=== PATIENT | female | born 1950 | race Caucasian/White ===

== ENCOUNTER 2019-06-13 06:38 | Emergency (ER) | payer MEDICARE, SELFPAY ==
[2019-06-13 06:49] VITALS: BP 220/113; PULSE 74; RESP 20; TEMP 36.6; O2SAT 96; BMI 23.2
--- NOTE | 2019-06-13 06:56 | ED_ITS ---
HPI - General Adult General: Chief complaint: General Medical Stated complaint: HTN Time Seen by Provider: 06/13/19 06:44 History of Present Illness: HPI narrative: 68-year-old female comes in complaining of elevated blood pressures. She states she was on blood pressure medicines for about 20 years but changed her diet and seem to get better so she stopped all of her medicines. She has not been taking any stimulants or hiln-jfu-ixcbidb medications recently. No nasal sprays. Associated symptoms: Deny chest pain, dyspnea, malaise, nausea, rash or vomiting Review of Systems Const: Denies: fever, chills, body aches, change in appetite, fatigue or malaise ENMT: Denies: throat pain, ear pain, nasal discharge or nasal congestion Card: Denies: chest pain, edema, shortness of breath on exertion or shortness of breath when lying down Resp: Denies: shortness of breath, productive cough or non-productive cough GI: Denies: abdominal pain, nausea, vomiting, vomiting blood, coffee grounds in vomit, diarrhea, constipation, bloating, blood in stool or black tarry stool : Denies: flank pain, difficulty urinating, painful urination, urinary frequency or urinary urgency Skin/Breast: Denies: rash or itching PFSH ED PFSH: Statuses (acute, chronic, etc) shown below reflect problem list status as previously entered and may not be historically accurate Social History Smoking and tobacco status: current every day smoker Physical Exam Const: COMMON NORMALS: no apparent distress GENERAL APPEARANCE: cooperative and comfortable ORIENTATION/CONSCIOUSNESS: Yes awake, Yes oriented to person, Yes oriented to place and Yes oriented to time HENMT: COMMON NORMALS: normocephalic, head/scalp atraumatic, hearing grossly normal bilaterally, external ears normal, EAC's normal, TM's normal bilaterally, nasal mucous membranes and turbinates normal, moist oral mucous membranes and oropharynx normal HEAD & SCALP: normocephalic and atraumatic NOSE: nasal mucous membranes and turbinates normal EXTERNAL EAR: Yes external ears normal EXTERNAL AUDITORY CANAL: EAC's normal TYMPANIC MEMBRANE: TM's normal bilaterally Eye: COMMON NORMALS: PERRL, EOMs intact bilaterally, conjunctivae normal and no scleral icterus CONJUNCTIVA: Yes conjunctivae normal PUPIL: Yes PERRL Neck/C-Spine: COMMON NORMALS: full ROM, no lymphadenopathy, supple and no JVD Lymph: LYMPHATIC: no lymphadenopathy noted and no lymphedema noted Resp: COMMON NORMALS: normal respiratory effort, no retractions, no use of accessory muscles and clear to auscultation bilaterally AUSCULTATION: clear to auscultation bilaterally Cardio: COMMON NORMALS: no JVD, regular rate, regular rhythm and no murmurs RATE: regular rate RHYTHM: regular rhythm GI: COMMON NORMALS: soft to palpation and no hepatosplenomegaly AUSCULTATION: Yes normoactive bowel sounds PALPATION: Yes soft, No tender, No guarding and Yes no hepatosplenomegaly Extremity: COMMON NORMALS: normal to inspection, normal capillary refill, no clubbing, cyanosis or edema, no calf tenderness and no pedal edema Neuro: SENSORIUM/ORIENTATION: Yes oriented to person, Yes oriented to place and Yes oriented to time Skin: COMMON NORMALS: no rashes or lesions noted GENERAL SKIN EXAM: no rashes or lesions noted Course ED course: Patient's blood pressure did improve while she was here getting go ahead and start her on amlodipine 2.5 mg and lisinopril 5 mg daily have her follow-up with her primary care provider in the next 5 to 7 days. Encouraged her to keep a blood pressure log daily. We had ordered some hydralazine but she was down to 159/84 before being given that. She did have blood pressure initially of 220/113 so I still think the 2 medication regimen is a good start for her but will need adjusting. Vital Signs: Vital signs: Vital Signs Temperature 98 F 06/13/19 06:49 Pulse Rate 79 06/13/19 08:22 Respiratory Rate 18 06/13/19 08:22 Blood Pressure 159/84 06/13/19 08:22 Pulse Oximetry 97 06/13/19 08:22 [facility] - General Adult Lab Data: Labs: Lab Results 06/13/19 06/13/19 06/13/19 Range/Units 07:18 07:18 07:18 WBC 4.5 (4.0-10.0) 10^3/ uL RBC 5.50 H (4.1-5.3) 10^6/u L Hgb 15.4 H (11.5-15.3) g/dL Hct 46.5 (37.0-47.0) % MCV 84.5 (81-99) fL MCH 28.0 (28.0-34.0) pg MCHC 33.1 (30.0-36.0) g/dL RDW 12.4 (12.1-15.1) % Plt Count 162 (130-400) 10^3/c mm MPV 12.1 H (7.4-10.4) fL Neut % (Auto) 57.6 % Lymph % (Auto) 29.3 % [place] % (Auto) 8.2 % Eos % (Auto) 3.6 % Baso % (Auto) 1.1 % Neut # (Auto) 2.6 (1.8-7.7) 10^3/u L Lymph # (Auto) 1.3 (0.8-4.8) 10^3/u L [place] # (Auto) 0.4 (0.2-0.9) 10^3/u L Eos # (Auto) 0.2 (0.0-0.8) 10^3/u L Baso # (Auto) 0.1 (0.0-0.1) 10^3/u L Nucleated RBC % (a uto) 0 % Nucleated RBCs # 0.0 /100WBC Sodium 138 (136-145) mmol/L Potassium 4.3 (3.5-5.1) mmol/L Chloride 104 (98-107) mmol/L Carbon Dioxide 20 L (22-29) mmol/L Anion Gap 18.3 (5-19) BUN 18 (8-23) mg/dL Creatinine 1.0 H (0.5-0.9) mg/dL GFR Calculation 55.3 L (90-130) mL/min Glucose 105 (74-106) mg/dL Calcium 9.7 (8.5-10.5) mg/dL Total Bilirubin 0.6 (0.15-1.2) mg/dL AST 15 (0-32) U/L ALT 11 (0-33) U/L Alkaline Phosphata se 57 (35-105) IU/L Troponin T Baselin e 15 H (0-10) ng/mL Total Protein 7.4 (6.6-8.7) g/dL Albumin 3.9 (3.5-5.2) g/dL Globulin 3.5 (1.3-4.6) g/dL Discharge Plan Discharge Patient Disposition: Home, Self-Care Condition: Stable Prescriptions: New lisinopril 5 mg tablet 5 mg PO DAILY Qty: 30 RF: 0 amlodipine 2.5 mg tablet 2.5 mg PO DAILY Qty: 30 RF: 0 Discharge Orders: Discharge Order (Routine); Ordered 06/13/19 Ordered By: Donovan Lugo Referrals: Efrain Nelson MD [Primary Care Provider] - Fredo Reid MD [Family Provider] - Discharge Diet: Usual diet Discharge Activity: Increase activity as tolerated Activity Restrictions/Additional Instructions: Follow-up with your primary care provider within the next 5 to 7 days for recheck of your blood pressure. Discharge Date/Time: 06/13/19 08:24 Coding Level of Care Code ED Director [employer] for Alicia Fwd Exam Problem Focused
--- NOTE | 2019-06-13 07:05 | XR_ITS ---
WS: [id number] PORTABLE CHEST HISTORY: HTN COMPARISON: 11/01/2018 Mild hyperinflation with scattered granulomata. Similar to the prior study. Slight elevation of the L EFT hemidiaphragm with LEFT pleural thickening at the costophrenic angle. No pneumonia. Normal vascul ature. No pleural effusion or pneumothorax. Cardiac size: Normal. Mediastinum/Aorta: Mild atherosclerosis aorta. No osseous abnormality seen. XR/XR chest 1V portable [id number] IMPRESSION: Chronic emphysema. No acute cardiopulmonary disease.
[2019-06-13 07:27] LABS: Basophils # 0.1 10^3/uL (0.0-0.1); Basophils % 1.1 %; Eosinophils # 0.2 10^3/uL (0.0-0.8); Eosinophils % 3.6 %; Hematocrit 46.5 % (37.0-47.0); Hemoglobin 15.4 g/dL (11.5-15.3); Lymphocytes # 1.3 10^3/uL (0.8-4.8); Lymphocytes % 29.3 %; Mean Corpuscular HGB Conc 33.1 g/dL (30.0-36.0); Mean Corpuscular Volume 84.5 fL (81-99); Mean Platelet Volume 12.1 fL (7.4-10.4); Monocytes # 0.4 10^3/uL (0.2-0.9); Monocytes % 8.2 %; Neutrophils # 2.6 10^3/uL (1.8-7.7); Neutrophils % 57.6 %; Nucleated Red Blood Cells % 0 %; Platelet Count 162 10^3/cmm (130-400); Red Cell Distribution Width 12.4 % (12.1-15.1); White Blood Count 4.5 10^3/uL (4.0-10.0)
[2019-06-13 07:47] LABS: Alanine Aminotransferase 11 U/L (0-33); Albumin Level 3.9 g/dL (3.5-5.2); Alkaline Phosphatase 57 IU/L (35-105); Anion Gap 18.3 (5-19); Aspartate Amino Transferase 15 U/L (0-32); Blood Urea Nitrogen 18 mg/dL (8-23); Calcium 9.7 mg/dL (8.5-10.5); Carbon Dioxide 20 mmol/L (22-29); Chloride 104 mmol/L (98-107); Globulin 3.5 g/dL (1.3-4.6); Glomerular Filtration Rate 55.3 mL/min (90-130); Glucose 105 mg/dL (74-106); Potassium 4.3 mmol/L (3.5-5.1); Sodium 138 mmol/L (136-145); Total Bilirubin 0.6 mg/dL (0.15-1.2); Total Protein 7.4 g/dL (6.6-8.7)
[2019-06-13 07:51] LABS: Troponin(5th) Baseline 15 ng/mL (0-10)
--- NOTE | 2019-06-13 07:55 | PC.NURSE ---
patient resting comfortably , no needs
[2019-06-13 08:22] VITALS: BP 159/84; PULSE 79; RESP 18; O2SAT 97
[2019-06-13] MEDS: amlodipine 5 mg Tablet PO (08:22)
--- NOTE | 2019-06-13 09:06 | ECG_ITS ---
Measurements Intervals [place] Rate: 52 P: 31 VA: 173 QRS: -30 QRSD: 101 T: -85 QT: 449 QTc: 420 SINUS BRADYCARDIA INCOMPLETE RIGHT BUNDLE BRANCH BLOCK [90+ ms QRS DURATION, TERMINAL R IN V1/V2, 40+ ms S IN I/aVL/V4/V5/V6] SEPTAL MYOCARDIAL INFARCTION , PROBABLY OLD [40+ ms Q WAVE IN V1/V2] MODERATE T-WAVE ABNORMALITY, CONSIDER ANTEROLATERAL ISCHEMIA [-0.1+ mV T WAVE IN V3-V6] MODERATE T-WAVE ABNORMALITY, CONSIDER INFERIOR ISCHEMIA [-0.1+ mV T WAVE IN II/aVF] Compared to ECG 07/10/2015 10:53:50 Myocardial infarct finding now present Left-axis deviation no longer present T-wave abnormality still present Possible ischemia still present Electronically Signed On 06-13-2019 18:37:04 LAUNDRY HOUSEKEEPER by Michael Lagunas M.D. [id number]
== END 2019-06-13 08:24 | disposition home or self-care (01) ==
PROVIDERS: Emergency Provider Family Medicine; Family Provider Internal Medicine Nephrology; PCP Family Medicine
DX: I10 Essential (primary) hypertension (principal); F17.210 Nicotine dependence, cigarettes, uncomplicated
CPT/HCPCS: 36415; 71045; 80053; 84484; 85025; 93005; 99282; 99284

== ENCOUNTER 2019-06-27 09:39 | Inpatient (IN) | payer MEDICARE, SELFPAY ==
[2019-06-27] VITALS (44 sets, daily range): BP systolic 85–138; BP diastolic 57–87; PULSE 42–73; RESP 12–30; O2SAT 91–983
--- NOTE | 2019-06-27 09:41 | ED_ITS ---
Entered by Bernard Horne, acting as scribe for HPI - Chest Pain General: Chief Complaint: Chest Pain Stated Complaint: chest pain Time Seen by Provider: 06/27/19 09:58 History of Present Illness: HPI narrative: 68 yo female presents with stemi. Pt went into her PCP office for a check up, pt was having chest pain. Pt received nitro by EMS. Pt states that she feels like she is going to pass out. MD complaint: chest pain Onset (ago): minute(s) Timing of current episode: constant Severity: moderate Review of Systems General: Reports: ROS unobtainable due to mental status PFSH ED PFSH: Statuses (acute, chronic, etc) shown below reflect problem list status as previously entered and may not be historically accurate Social History Smoking and tobacco status: current every day smoker Physical Exam Const: COMMON NORMALS: oriented x3 and alert GENERAL APPEARANCE: well kempt ORIENTATION/CONSCIOUSNESS: Yes awake, Yes oriented to person, Yes oriented to place and Yes oriented to time Resp: COMMON NORMALS: normal respiratory effort, no retractions, no use of accessory muscles and clear to auscultation bilaterally AUSCULTATION: clear to auscultation bilaterally Cardio: COMMON NORMALS: regular rate and regular rhythm RATE: regular rate RHYTHM: regular rhythm HEART SOUNDS: no murmurs Neuro: COMMON NORMALS: oriented x3 SENSORIUM/ORIENTATION: Yes alert, Yes oriented to person, Yes oriented to place and Yes oriented to time Psych: APPEARANCE: Yes well kempt Course ED course: Patient presented with acute ST elevation [place]. EKG from doctor's office showed some ST depression in the lateral leads that are progressed to a full-blown STEMI by the time she arrived. Initially upon arrival she had received sublingual nitro and was unstable she was bradycardic EMS administered 1/2 mg of atropine as they arrived. This did improve her heart rate. Blood pressure was borderline as well. Dr. Busby was contacted STEMI pathway protocols initiated immediately patient taken from the ER to the [facility] with the care of Dr. Busby. Vital Signs: Vital signs: Vital Signs Temperature 98 F 06/28/19 10:33 Pulse Rate 56 L 06/28/19 10:33 Respiratory Rate 20 H 06/28/19 10:33 Blood Pressure 128/85 06/28/19 11:05 Pulse Oximetry 97 06/28/19 10:33 MDM - Chest Pain Lab Data: Labs: Lab Results 06/27/19 06/27/19 06/27/19 Range/Units 09:45 09:45 09:45 WBC 7.0 (4.0-10.0) 10^3/ uL RBC 5.33 H (4.1-5.3) 10^6/u L Hgb 15.4 H (11.5-15.3) g/dL Hct 46.9 (37.0-47.0) % MCV 88.0 (81-99) fL MCH 28.9 (28.0-34.0) pg MCHC 32.8 (30.0-36.0) g/dL RDW 12.7 (12.1-15.1) % Plt Count 197 (130-400) 10^3/c mm MPV 12.2 H (7.4-10.4) fL Neut % (Auto) 47.8 % Lymph % (Auto) 40.4 % [place] % (Auto) 8.2 % Eos % (Auto) 2.6 % Baso % (Auto) 0.9 % Neut # (Auto) 3.3 (1.8-7.7) 10^3/u L Lymph # (Auto) 2.8 (0.8-4.8) 10^3/u L [place] # (Auto) 0.6 (0.2-0.9) 10^3/u L Eos # (Auto) 0.2 (0.0-0.8) 10^3/u L Baso # (Auto) 0.1 (0.0-0.1) 10^3/u L Nucleated RBC % (a uto) 0 % Nucleated RBCs # 0.0 /100WBC Sodium 137 (136-145) mmol/L Potassium 4.0 (3.5-5.1) mmol/L Chloride 103 (98-107) mmol/L Carbon Dioxide 21 L (22-29) mmol/L Anion Gap 17.0 (5-19) BUN 21 (8-23) mg/dL Creatinine 1.0 H (0.5-0.9) mg/dL GFR Calculation 55.3 L (90-130) mL/min Glucose 141 H (65-115) mg/dL Calcium 9.6 (8.5-10.5) mg/dL Total Bilirubin 0.6 (0.15-1.2) mg/dL AST 13 (0-32) U/L ALT 9 (0-33) U/L Alkaline Phosphata se 50 (35-105) IU/L Troponin T Baselin e 19 H (0-10) ng/mL Total Protein 7.1 (6.6-8.7) g/dL Albumin 4.4 (3.5-5.2) g/dL Globulin 2.7 (1.3-4.6) g/dL Discharge Plan Discharge Patient Disposition: Admitted As Inpatient Admit Provider: Michael Lagunas Clinical Impression: ST elevation TN (STEMI) Condition: Stable Discharge Orders: Discharge Order (Routine); Ordered 06/28/19 Ordered By: Michael Lagunas Referrals: Michael Lagunas MD [Physician] - 2 months (follow up appointment has been scheduled at [facility] [phone] with for date of Tuesday September 17, 2019 at 1:00 pm ) Antwon Phillips FNP [Nurse Practitioner] - 4-7 days (antwon phillips for follow up in 7 days at [facility] [phone] for wound check ,and lab test , scheduled appointment for time of Thursday July 04, 2019 at 10:30 am ) Discharge Diet: Cardiac Discharge Activity: Increase activity as tolerated Patient Instructions: Metoprolol (By mouth), Lisinopril (By mouth), Aspirin (By mouth), Atorvastatin (By mouth), Pantoprazole (By mouth), Heart Healthy Diet, Myocardial Infarction (DC), Coronary Intravascular Stent Placement (DC), Post Angiogram Home Care Instructions Additional Instructions: You will be scheduled to see Antwon Phillips cardiology nurse practitioner in 7 days. Please schedule to see Dr. Lagunas in 8 weeks. If you have any questions please call Dr. Lagunas's office. Please keep a log of blood pressure and pulse for next 7 days and bring it with you when you come to see Antwon Phillips Discharge Date/Time: 06/27/19 10:05 Coding Level of Care Code ED Platform Beater for Chg Fwd Exam Problem Focused The documentation recorded by the scribeOzzie Kialy, accurately reflects the service I personally performed and the decisions made by , Donovan Lugo, Jun 27, 2019 09:39
[2019-06-27] MEDS: heparin 5,000 unit/mL INJ 1 mL 4000 UNIT IV (09:51)
[2019-06-27] MEDS: clopidogrel 300 mg Tablet 600 MG PO (09:51)
[2019-06-27] MEDS: aspirin 81 mg Chew Tablet 162 MG PO (09:51)
[2019-06-27] MEDS: sodium chloride 0.9% 1,000 ML 999 ML IV (09:51)
--- NOTE | 2019-06-27 09:54 | XACV_ITS ---
Ht: 173 cm Wt: 72 kg BSA: 1.86 m2 Gender: Female : 1950 Exam Priority: Routine Procedure(s): Procedure Description: Diagnostic procedure Procedure Description: PCI procedure Procedure Description: Drug Eluting Coronary Stent Procedure Description: PTCA Procedure Description: Coronary Angiography Diagnostic Cath Status: Urgent Diagnostic Findings LM has 0% stenosis. LAD has 0% stenosis. Proximal Circumflex Coronary Artery: Severe 100% stenosis, JC: 0 flow. mRCA: Mild 20% stenosis, JC: 3 flow. Coronary angiography shows right dominance. PCI Status: Urgent PCI Indication: STEMI - Immediate PCI for STEMI Interventional Findings Proximal Circumflex Coronary Artery: 100% stenosis treated with AB TREK 2.50X15 RX BALLOON, TRACIE Akers SYLVIA 3.5X18 SHAN, and MDT CHRISTOPHER EUPHORA RX 4.30Q39BY BALLOON. 0% residual stenosis, JC: 3 flow. Severe spasm of the proximal circumflex was observed after placing the stent. IC nitroglycerin was given after which spasm normalized. After careful inspection of the vessel no dissection was each denies. JC-3 flow and excellent angiographic result was confirmed. Conclusions There is severe coronary artery disease with two vessel disease. Proximal Circumflex Coronary Artery was treated with two Balloon and Drug Eluting Stent. Recommendations Continue current medical management and risk factor modification. Diagnostic RX Recommendation: PCI w/o planned CABG Pressures Phase:Rest AO : 139 mmHg / 92 mmHg ( 113 mmHg ) @ 4:11:00 AM Clinical Evaluation EBL: 5mL-10mL Procedural Details Current Diagnosis : STEMI. Pre-Procedure Time Out. Identified patient by full name and date of as verbalized by the patient/guarantor. Does the consent match the physician's order: N/A Emergent; Informed Consent not obtained due to time critical life threat. Accurate & Complete Informed Consent: N/A Emergent; Informed Consent not obtained due to time critical life threat. Inpatient/Outpatient History & Physical on Chart: N/A Emergent; Informed Consent not obtained due to time critical life threat. If H&P is completed, is and addenduem needed: N/A Emergent; Informed Consent not obtained due to time critical life threat; If yes, is the addendum complete: N/A Emergent; Informed Consent not obtained due to time critical life threat. Visualize and Verify Site with Patient/Guarantor: N/A. Relevant Radiology Images available: N/A Emergent; Informed Consent not obtained due to time critical life threat. Pre-op teaching completed and patient verbalized understanding. The risks, benefits, and alternatives of sedation and/or procedure were discussed by physician. The patient agrees to continue. Procedure started. Correct patient, site and procedure confirmed by cath team. Current diagnosis: STEMI. PERRLA. Strong, equal hand emulsification operator bilaterally. Lungs clear x 5 lobes. IV Site on Arrival: 16 gauge in the right anticubital. IV Site on Arrival: 20 gauge in the left anticubital. IV Fluids: 0.9% NaCl at KVO. 0 mL infused prior to laborer tanbark. Fluid bolus started in ED and running at this time. Pre Procedural Pulses: bilateral dorsalis pedis was 2+. Pre Procedural Pulses: bilateral posterior tibial was 2+. Pre Procedural Pulses: bilateral radial was 2+. Oxygen started at 2liters/min via nasal canula. bilateral groins was prepped with chloroprep then draped in the usual sterile fashion. right radial was prepped with chloroprep then draped in the usual sterile fashion. Baseline sample Acquired. HR: 65 BPM. Physician notified. Physician arrived. Equipment: 6F - Radial. ACIST Manifold Kit Model BT 2000. Cardiac Cath Pack. Heparinized Saline (2 units/mL), 1000 mL bag. Physician scrubbed in. Immediate Pre-Procedure Time Out. Correct Patient: Yes; Correct Procedure: Yes; Correct Site: Yes; Correct Patient Position: Yes; Correct Supplies: Yes; Dried Flammable Prep: Yes; Blood Products Available: No;. Lidocaine 1% infiltrated to the right radial. Arterial access obtained. 6 slovak JR 4 guide catheter was inserted over the wire. 600mg plavix, 4000 units of heparin, and 324mg Aspirin, 0.4mg SL Nitro, 0.5mg Atropine given in the ED prior to arrival in laborer tanbark. Guide catheter out. 6 slovak XB 3 guide catheter was inserted over the wire. AP pads on patient. [place] guidewire was advanced through the guide catheter to lesion in the prox Circ. Family updated by Rosa Garibay. Inflation number : 1 A AB TREK 2.50X15 RX BALLOON was prepped and advanced across the Prox CX , then inflated to 10 AYDEN for 0:06 seconds. Inflation number: 2 The AB TREK 2.50X15 RX BALLOON was reinflated across the Prox CX, to 8 AYDEN for 0:06 seconds. Balloon out. Results checked. Inflation Number : 3 A TRACIE Akers SYLVIA 3.5X18 SHAN -Lot Number#[id number] was prepped and advanced across the Prox CX. The stent was deployed at 12 AYDEN for 0:21 seconds. Stent expiration date: 03/15/2021. Stent balloon out over wire. Inflation number : 4 A MDVonda WHITE EUPHORA RX [id number] BALLOON was prepped and advanced across the Prox CX , then inflated to 8 AYDEN for 0:10 seconds. Wire out. ACT drawn. Results 193 seconds. Therapeutic limits - pre-heparin administration 90-150 seconds and monitoring heparin during a vascular procedure >250 seconds. TR band placed. Hemostasis obtained. Post Procedure: Pulses reassessed and unchanged. PERRLA. Strong, equal hand emulsification operator bilaterally. No VTE prophylaxis required. Medication's Wasted: Lidocaine 1% = 18 mL. Medication's Wasted: Nitro = 49.8 mg. Medication's Wasted: Other = Versed 1 mg. Medication's Wasted: Other = Fentanyl 75mcg. Total IV fluids: 900 mL. Contrast type used: Visipaque 320 mgI/mL, 500 mL bottle. PCI Indication: STEMI. Post-op diagnosis: STEMI. Complications: None. Estimated blood loss: 5mL-10mL. Vital chart was stopped. Procedure completed. Patient transferred by wheelchair to 1st floor. Site: Right Radial artery Sheath Size: 6 Fr Hemostasis Success: Unsuccessful Procedure Medications Start: 10:02 AM Stop: 10:02 AM Medication: Versed 1 mg and Fentanyl 25 mcg Amount: 1 Route: I.V. Start: 10:03 AM Stop: 10:03 AM Medication: Heparin Amount: 4000 units Route: I.V. Start: 10:18 AM Stop: 10:18 AM Medication: Aggrastat 12.5 mg/250 mL Amount: 36 ml Route: I.V. bolus Start: 10:19 AM Stop: 10:19 AM Medication: Aggrastat 12.5 mg/250 mL Amount: 13 ml/hr Route: I.V. drip Start: 10:29 AM Stop: 10:29 AM Medication: Nitrogylcerin Amount: 200 mcg Route: I.C. I, the attending physician, have reviewed and verified all procedure medications. Yes, all medications given per verbal order Report Signatures Finalized by:iMchael Lagunas MD on 07/11/2019 7:18:19 PM
--- NOTE | 2019-06-27 09:58 | ECG_ITS ---
Measurements Intervals [place] Rate: 66 P: ME: 0 QRS: -9 QRSD: 96 T: 40 QT: 414 QTc: [address] ELEVATION, CONSIDER LATERAL INJURY [MARKED ST ELEVATION W/O NORMALLY INF INFLECTED T WAVE IN I/aVL/V5/V6] Market ST depressions in the anterior leads, suggestive of ischemia ACUTE [place] No previous ECG available for comparison Electronically Signed On 06-27-2019 20:54:28 TRESTLE MAINTERNANCE LABORER by Danyelle Beck M.D. [email or web address]
[2019-06-27 10:10] LABS: Basophils # 0.1 10^3/uL (0.0-0.1); Basophils % 0.9 %; Eosinophils # 0.2 10^3/uL (0.0-0.8); Eosinophils % 2.6 %; Hematocrit 46.9 % (37.0-47.0); Hemoglobin 15.4 g/dL (11.5-15.3); Lymphocytes # 2.8 10^3/uL (0.8-4.8); Lymphocytes % 40.4 %; Mean Corpuscular HGB Conc 32.8 g/dL (30.0-36.0); Mean Corpuscular Hemoglobin 28.9 pg (28.0-34.0); Mean Platelet Volume 12.2 fL (7.4-10.4); Monocytes # 0.6 10^3/uL (0.2-0.9); Monocytes % 8.2 %; Neutrophils # 3.3 10^3/uL (1.8-7.7); Neutrophils % 47.8 %; Nucleated Red Blood Cells % 0 %; Platelet Count 197 10^3/cmm (130-400); Red Blood Count 5.33 10^6/uL (4.1-5.3); Red Cell Distribution Width 12.7 % (12.1-15.1)
[2019-06-27 10:22] LABS: Alanine Aminotransferase 9 U/L (0-33); Albumin Level 4.4 g/dL (3.5-5.2); Alkaline Phosphatase 50 IU/L (35-105); Aspartate Amino Transferase 13 U/L (0-32); Blood Urea Nitrogen 21 mg/dL (8-23); Calcium 9.6 mg/dL (8.5-10.5); Carbon Dioxide 21 mmol/L (22-29); Chloride 103 mmol/L (98-107); Globulin 2.7 g/dL (1.3-4.6); Glomerular Filtration Rate 55.3 mL/min (90-130); Glucose 141 mg/dL (65-115); Sodium 137 mmol/L (136-145); Total Bilirubin 0.6 mg/dL (0.15-1.2); Total Protein 7.1 g/dL (6.6-8.7)
[2019-06-27 10:24] LABS: Troponin(5th) Baseline 19 ng/mL (0-10)
--- NOTE | 2019-06-27 10:51 | P.HP_ITS ---
Providers/Chief Complaint Admitting Physician: Michael Lagunas MD Chief Complaint: chest pain History of Present Illness [place] [id number] Scott is a 68 year old female past medical history significant for continuous tobacco abuse, labile hypertension history of atrial fibrillation not on anti-coagulation, history of questionable compliance, history of questionable valvular problem denies diabetes or prior heart problem presented with chest pain with significant dynamic EKG changes. There were anterolateral significant ST depression followed by ST elevation in the inferior and lateral leads suggestive of posterior and lateral wall involvement. ST elevation AR pager was alerted. I immediately saw the patient in the ER where she was brought in from physician's office. She was given 600 mg of Plavix and 4000 of heparin. She was immediately transferred to the [facility] for urgent coronary angiogram. She was found to have 100% proximally occluded large circumflex vessel. It was treated with balloon angioplasty followed by drug-eluting stent postdilated with noncompliant balloon. Her blood pressure was stabilized. She became chest pain-free. She was started on Aggrastat due to her thrombus burden. She is being transferred to [facility]. Review of Systems Const: Denies: fever, chills or body aches Card: Reports: chest pain GI: Denies: abdominal pain, nausea or vomiting Neuro: Denies: headache or numbness in extremities Medications/Allergies Allergies Allergy/AdvReac Type Severity Reaction Status Date / Time No Known Allergies Allergy Verified 06/27/19 09:40 PFSH Acute PFSH: Statuses (acute, chronic, etc) shown below reflect problem list status as previously entered and may not be historically accurate Medical History (Updated 06/27/19 @ 10:55 by Michael Lagunas MD) Afib (Acute) Heart valve disease (Acute) Hypertension (Acute) Surgical History H/O tubal ligation (Acute) H/O: hysterectomy (Acute) Hx of appendectomy (Acute) Social History Smoking and tobacco status: current every day smoker Vitals/I&O/Wt Last Vital Signs Pulse 69 06/27/19 10:01 Resp 14 06/27/19 10:01 BP 114/64 02/12/20 10:01 Pulse Ox 91 06/27/19 10:01 Physical Exam Narrative: EXAM NARRATIVE: GENERAL: Patient is alert, awake and oriented x3. Moderate distress NECK: No jugular vein distension. HEENT: No cyanosis. No icterus. No pallor. HEART: Regular S1 and S2. No murmur, rub or gallop. LUNGS: Clear to auscultate bilaterally. ABDOMEN: Soft, nontender and nondistended. Positive bowel sounds. No guarding, rebound or tenderness. CENTRAL NERVOUS SYSTEM: Grossly nonfocal. EXTREMITIES: Lower extremities without edema bilaterally. Data : 06/27/19 09:45 06/27/19 09:45 A&P Assessment and plan (1) ST elevation AR (STEMI): Patient was taken to the [facility] found to have 100% occluded proximal circumflex treated with single drug-eluting stent using Maikel 3.5x18mm post dilated with 4.0 x12 noncompliant balloon. Patient tolerated procedure well she has been transferred to [facility]. Continue Aggrastat for 2-1/2-hour. She has been loaded with Plavix. We will add beta-morteza statin and ANNY inhibitor over next any 4 hours. Status: Acute Code(s): I21.3 - ST elevation (STEMI) myocardial infarction of unspecified site (2) Afib: Currently patient is sinus rhythm. She will be monitored. Status: Acute Code(s): I48.91 - Unspecified atrial fibrillation (3) Hypertension: Currently stable. Status: Acute Code(s): I10 - Essential (primary) hypertension Attestations Medical Necessity Statement*: I am expecting her stay to cross more than 2 midnights Coding Level of Care Code New Pt Acute Safety Manager for [facility] Fwd Patient Type New History Comprehensive Exam Comprehensive Medical Decision Making High Complexity Diagnoses ST elevation AR (STEMI) I21.3 Afib I48.91 Hypertension I10
[2019-06-28] VITALS (59 sets, daily range): BP systolic 116–141; BP diastolic 69–86; PULSE 46–77; RESP 12–32; TEMP 36.6; O2SAT 93–99
[2019-06-28 04:44] LABS: Basophils % 0.6 %; Eosinophils # 0.1 10^3/uL (0.0-0.8); Eosinophils % 1.8 %; Hematocrit 38.6 % (37.0-47.0); Hemoglobin 12.8 g/dL (11.5-15.3); Lymphocytes # 1.8 10^3/uL (0.8-4.8); Lymphocytes % 28.5 %; Mean Corpuscular HGB Conc 33.2 g/dL (30.0-36.0); Mean Corpuscular Volume 87.3 fL (81-99); Mean Platelet Volume 12.6 fL (7.4-10.4); Monocytes # 0.7 10^3/uL (0.2-0.9); Monocytes % 11.2 %; Neutrophils # 3.6 10^3/uL (1.8-7.7); Neutrophils % 57.7 %; Nucleated Red Blood Cells % 0 %; Platelet Count 156 10^3/cmm (130-400); Red Blood Count 4.42 10^6/uL (4.1-5.3); Red Cell Distribution Width 12.8 % (12.1-15.1); White Blood Count 6.2 10^3/uL (4.0-10.0)
[2019-06-28 05:08] LABS: Anion Gap 14.9 (5-19); Blood Urea Nitrogen 15 mg/dL (8-23); Calcium 8.8 mg/dL (8.5-10.5); Carbon Dioxide 22 mmol/L (22-29); Chloride 107 mmol/L (98-107); Glomerular Filtration Rate 55.3 mL/min (90-130); Glucose 98 mg/dL (65-115); Osmolality Calculated 286 mOsm/kg (285-295); Potassium 3.9 mmol/L (3.5-5.1); Sodium 140 mmol/L (136-145)
[2019-06-28 05:24] LABS: Troponin T (5th) Once 728 ng/mL (0-10)
--- NOTE | 2019-06-28 08:35 | USCV_ITS ---
Mecca Chavez Age: 68 Gender: F : 1950 Exam Date: 06/28/2019 09:11 Ordering Phys: Michael Lagunas MD ([email or web address]) Technologist: Luz Jensen Exam Location: [facility] – [place], [place] Indication: STEMI BP: 122 / 69 HR: 120 Rhythm: Other Technical Quality: Good MEASUREMENTS (Male / Female) Normal Values 2D ECHO LV Diastolic Diameter PLAX 5.0 cm 4.2 - 5.9 / 3.9 - 5.3 cm LV Systolic Diameter PLAX 3.6 cm IVS Diastolic Thickness 1.1 cm 0.6 - 1.0 / 0.6 - 0.9 cm IVS Systolic Thickness 1.1 cm LVPW Diastolic Thickness 0.8 cm 0.6 - 1.0 / 0.6 - 0.9 cm LVPW Systolic Thickness 1.4 cm LVOT Diameter 2.1 cm LV Ejection Fraction 2D Teich 54.5 % LV Ejection Fraction MOD 2C 67.1 % LV Ejection Fraction 2C AL 68.0 % LA Diameter 2.7 cm LA Width 3.7 cm LA Height 4.8 cm RA Width 3.9 cm RA Height 5.4 cm M-MODE LV Diastolic Diameter MM 5.7 cm 4.2 - 5.9 / 3.9 - 5.3 cm LV Systolic Diameter MM 3.2 cm LV Ejection Fraction MM Teich 75.0 % IVS Diastolic Thickness MM 0.6 cm 0.6 - 1.0 / 0.6 - 0.9 cm IVS Systolic Thickness MM 1.4 cm LVPW Diastolic Thickness MM 0.8 cm 0.6 - 1.0 / 0.6 - 0.9 cm LVPW Systolic Thickness MM 1.9 cm Aortic Annulus Diameter 3.4 cm LA Ao Ratio MM 0.8 MV E Point Septal Separation 0.8 cm DOPPLER AV Peak Velocity 151.0 cm/s LVOT Peak Velocity 82.0 cm/s AV Area Cont Eq vti 1.9 cm squared AV Area Cont Eq pk 1.8 cm squared MV Peak Velocity 87.0 cm/s MV Area PHT 3.7 cm squared Mitral E to A Ratio 1.1 MV E' Velocity 7.0 cm/s Mitral E to MV E' Ratio 7.9 Mitral E to LV E' Lateral Ratio 9.6 Mitral E to LV E' Septal Ratio 6.8 TR Peak Velocity 207.0 cm/s TR Peak Gradient 17.1 mmHg Right Atrial Pressure 3.0 mmHg Pulmonary Artery Systolic Pressu 20.1 mmHg PV Peak Velocity 72.0 cm/s RV Acceleration Time 0.1 s FINDINGS Left Ventricle Mildly increased left ventricular cavity size. Mildly decreased left ventricular systolic function. Left ventricular ejection fraction is estimated at 50 %. There appeared to be lateral wall hypokinesis. Right Ventricle The right ventricle is normal in size and function. Right Atrium The right atrium is normal in size. Left Atrium The left atrium is normal in size. Mitral Valve Mildly thickened mitral valve. No mitral valve stenosis. Moderate to severe mitral valve regurgitation. Aortic Valve Structurally normal aortic valve without significant sclerosis or stenosis. There is no aortic regurgitation. Tricuspid Valve Moderate tricuspid valve regurgitation. Pulmonic Valve Mild pulmonary valve regurgitation. Pericardium Normal pericardium without effusion. Aorta Mildly dilated aortic annulus. CONCLUSIONS 1-Mildly increased left ventricular cavity size. Mildly decreased left ventricular systolic function. Left ventricular ejection fraction is estimated at 50 %. There appeared to be lateral wall hypokinesis. 2-Mildly thickened mitral valve. No mitral valve stenosis. Moderate to severe mitral valve regurgitation. 3-Structurally normal aortic valve without significant sclerosis or stenosis. There is no aortic regurgitation. 4-Moderate tricuspid valve regurgitation. 5-Mild pulmonary valve regurgitation. 6-There is no pericardial effusion. 7-Pulmonary artery systolic pressure is within normal limits. 8-There are no prior echocardiogram studies to compare. Michael Lagunas MD (Electronically Signed) Final Date: 28 June 2019 17:55 S
--- NOTE | 2019-06-28 09:01 | P.DS_ITS ---
Discharge Providers Date of Admission: 06/27/19 14:20 Date of Discharge: June 28, 2019 Attending Provider at Admission: Michael Lagunas MD Attending Provider at Discharge: Michael Lagunas MD Diagnoses at Discharge Discharge Diagnosis (1) ST elevation LA (STEMI): Status: Acute Problem details: Status post drug-eluting stent to circumflex. (2) Afib: Status: Acute Problem details: Patient is in sinus rhythm I have not seen any episodes of A. fib. We will further look into it when she will see us in clinic. Possible she has a history of paroxysmal A. fib. At some point we have to decide regarding anticoagulation. (3) Hypertension: Status: Acute Problem details: Optimally controlled. Reason for Visit Reason for Visit: Reason For Visit: chest pain Hospital Course Hospital Course: 68-year-old female past medical history significant for hyper tension, questionable history of compliance and continuous [id number] tobacco abuse came in with ST elevation LA of inferolateral leads. Patient was taken to the [facility] found to have 100% occluded circumflex in its proximal segment. It was treated with balloon angioplasty followed by drug-eluting stent placement. Post PCI patient recovered promptly without any complication. She is doing much better she is chest pain-free she is walking around denies any complaint. She would like to go home. We will ask for echocardiogram to assess her baseline ejection fraction. She will be discharged after that. She will be following up with Angella Sifuentes cardiology nurse practitioner and myself in the clinic. She will be discharged on metoprolol succinate in the morning, lisinopril in the charline morena, statin, clopidogrel and aspirin. Patient has been advised to keep a log of blood pressure pulse and bring it with her when she comes to see us in the clinic. She is encouraged to call us if any questions or problems. She can resume her regular activity in 3 days she has been advised not to lift anything heavier with right hand for next 2 days. Discharge Summary: As above. 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 request for service Routin e Exams 06/27/19 09:54 Taken CV echo complete* [id number] Routine Ultrasound 06/28/19 08:35 Ordered Labs from last 24 hours 06/28/19 06/28/19 06/28/19 03:50 03:50 03:50 WBC 6.2 RBC 4.42 Hgb 12.8 Hct 38.6 MCV 87.3 MCH 29.0 MCHC 33.2 RDW 12.8 Plt Count 156 MPV 12.6 H Neut % (Auto) 57.7 Lymph % (Auto) 28.5 [place] % (Auto) 11.2 Eos % (Auto) 1.8 Baso % (Auto) 0.6 Neut # (Auto) 3.6 Lymph # (Auto) 1.8 [place] # (Auto) 0.7 Eos # (Auto) 0.1 Baso # (Auto) 0.0 Nucleated RBC % (a uto) 0 Nucleated RBCs # 0.0 Sodium 140 Potassium 3.9 Chloride 107 Carbon Dioxide 22 Anion Gap 14.9 BUN 15 Creatinine 1.0 H GFR Calculation 55.3 L Glucose 98 Calculated Osmolal ity 286 Calcium 8.8 Total Bilirubin AST ALT Alkaline Phosphata se Troponin T Gen 5 n g/L 728 H* Troponin T Baselin e Total Protein Albumin Globulin 06/27/19 06/27/19 06/27/19 09:45 09:45 09:45 WBC 7.0 RBC 5.33 H Hgb 15.4 H Hct 46.9 MCV 88.0 MCH 28.9 MCHC 32.8 RDW 12.7 Plt Count 197 MPV 12.2 H Neut % (Auto) 47.8 Lymph % (Auto) 40.4 [place] % (Auto) 8.2 Eos % (Auto) 2.6 Baso % (Auto) 0.9 Neut # (Auto) 3.3 Lymph # (Auto) 2.8 [place] # (Auto) 0.6 Eos # (Auto) 0.2 Baso # (Auto) 0.1 Nucleated RBC % (a uto) 0 Nucleated RBCs # 0.0 Sodium 137 Potassium 4.0 Chloride 103 Carbon Dioxide 21 L Anion Gap 17.0 BUN 21 Creatinine 1.0 H GFR Calculation 55.3 L Glucose 141 H Calculated Osmolal ity Calcium 9.6 Total Bilirubin 0.6 AST 13 ALT 9 Alkaline Phosphata se 50 Troponin T Gen 5 n g/L Troponin T Baselin e 19 H Total Protein 7.1 Albumin 4.4 Globulin 2.7 Vitals: Last Vital Signs Pulse 69 06/28/19 08:25 Resp 17 06/28/19 06:00 BP 129/74 06/28/19 06:00 Pulse Ox 98 06/28/19 08:25 Discharge Plan Discharge Patient Disposition: Home, Self-Care Condition: Stable Prescriptions: New atorvastatin 40 mg Tablet 40 mg PO BEDTIME Qty: 90 RF: 0 clopidogrel 75 mg Tablet 75 mg PO DAILY Qty: 90 RF: 4 lisinopril 2.5 mg tablet 2.5 mg PO DAILY Qty: 30 RF: 0 aspirin 81 mg tablet,delayed release (DR/EC) 81 mg PO DAILY Qty: 90 RF: 4 metoprolol succinate 25 mg capsule,sprinkle,ER 24hr 12.5 mg PO DAILY Qty: 30 RF: 3 pantoprazole 40 mg tablet,delayed release (DR/EC) 40 mg PO DAILY Qty: 30 RF: 3 Discontinued amlodipine 2.5 mg tablet 2.5 mg PO DAILY RF: 0 lisinopril 5 mg tablet 5 mg PO DAILY RF: 0 No Action triamcinolone acetonide 0.1 % ointment 1 applic TOPICAL DAILY RF: 0 Discharge Orders: Discharge Order (Routine); Ordered 06/28/19 Ordered By: Michael Lagunas Discharge Diet: Cardiac Discharge Activity: Increase activity as tolerated Activity Restrictions/Additional Instructions: You will be scheduled to see Angella Sifuentes cardiology nurse practitioner in 7 days. Please schedule to see Dr. Lagunas in 8 weeks. If you have any questions please call Dr. Lagunas's office. Please keep a log of blood pressure and pulse for next 7 days and bring it with you when you come to see Angella Sifuentes Discharge Attestations Time Spent in Discharge Care*: greater than 30 min Specific Discharge Activities: Other discharge activites (optional): No lifting or driving with right hand for next 2 days. Resume your normal activity from Tuesday Time Spent in Smoking Cessation: Time spent discussing smoking cessation with patient: 3 to 10 minutes Status at Discharge: Cognitive status at discharge: cognitively intact , Behavioral status at discharge: cooperative , Functional status at discharge: independent ambulation Overall status at discharge: patient is back to baseline Quality Metrics Clinical Quality Measures During this hospital stay, did patient experience: AMI Clinical Trial Participant: No Contraindication to aspirin (AMI): Aspirin given Contraindication to statin: Statin prescribed Contraindication to PCI: PCI performed Coding Level of Care Code New Pt Acute Furnace Converter for Alicia Fwmarie Patient Type New History Detailed Exam Detailed Medical Decision Making High Complexity Diagnoses ST elevation LA (STEMI) I21.3 Afib I48.91 Hypertension I10
--- NOTE | 2019-06-28 11:09 | PC.NURSE ---
Discharge papers and education given to patient and discussed. Confirmation form signed. IV removed from left AC, catheter intact. Dressing in place over puncture site right wrist. No new drainage. No new hematoma. Patient able to dress self and ambulated out of unit with .
== END 2019-06-28 11:05 | disposition home or self-care (01) | DRG 247 ==
LOC: ER 10:19 → ICU 14:46
PROVIDERS: Admitting Provider Internal Medicine Cardiovascular Disease; Emergency Provider Family Medicine; Visit Provider Internal Medicine Cardiovascular Disease
PROC: 027034Z Dilation of Coronary Artery, One Artery with Drug-eluting Intraluminal Device, Percutaneous Approach (ICD-10-PCS; principal; 2019-06-27 10:30)
PROC: 027034Z Dilation of Coronary Artery, One Artery with Drug-eluting Intraluminal Device, Percutaneous Approach (ICD-10-PCS; 2019-06-27 10:30)
DX: I21.3 ST elevation (STEMI) myocardial infarction of unspecified site (principal); F17.210 Nicotine dependence, cigarettes, uncomplicated; I10 Essential (primary) hypertension; I48.91 Unspecified atrial fibrillation; I25.10 Atherosclerotic heart disease of native coronary artery without angina pectoris
CPT/HCPCS: 12345; 36415; 80048; 80053; 84484; 85025; 85347; 93005; 93306; 93454; 99282; C1725; C1769; C1874; C1887; C1894; C9606; J1644; J2001; J2250; J3010; J3246; J3490; J7030; Q9967

== ENCOUNTER → 2019-07-04 10:48 | Outpatient (BNVA) | payer MEDICARE, SELFPAY | PROVIDERS: Family Provider Internal Medicine Nephrology; PCP Nurse Practitioner Family; Visit Provider Nurse Practitioner Family | DX: I25.10 Atherosclerotic heart disease of native coronary artery without angina pectoris (principal); R00.1 Bradycardia, unspecified; I25.110 Atherosclerotic heart disease of native coronary artery with unstable angina pectoris | CPT/HCPCS: 80048 ==

== ENCOUNTER 2021-07-14 13:04 | Observation (INO) | payer MEDICARE, SELFPAY ==
[2021-07-14 13:17] VITALS: BP 99/69; PULSE 116; RESP 16; TEMP 36.3; O2SAT 96; BMI 25.7
--- NOTE | 2021-07-14 13:48 | ECG_ITS ---
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 Measurements Intervals [place] Rate: 60 P: 48 OR: 180 QRS: -38 QRSD: 89 T: 269 QT: 404 QTc: 404 Interpretive Statements SINUS RHYTHM LEFT AXIS DEVIATION [QRS AXIS < -30] POSSIBLE RIGHT VENTRICULAR CONDUCTION DELAY [RSR (QR) IN V1/V2] LEFT VENTRICULAR HYPERTROPHY AND ST-T CHANGE [VOLTAGE CRITERIA PLUS ST/T ABNORMALITY] POSSIBLE SEPTAL MYOCARDIAL INFARCTION , PROBABLY OLD Compared to ECG 07/14/2021 15:30:01 Left-axis deviation now present Left ventricular hypertrophy now present Atrial flutter no longer present Left anterior fascicular block no longer present ST (T wave) deviation still present Myocardial infarct finding still present Electronically Signed On 07-15-2021 5:36:46 LASER SPECIALIST by Li Cabezas M.D. [id number]
--- NOTE | 2021-07-14 13:48 | XRR_ITS ---
PROCEDURE INFORMATION: Exam: XR Chest Exam date and time: 07/14/2021 1:48 PM Age: 70 years old Clinical indication: Cough and dyspnea; Additional info: Dyspnea/cough TECHNIQUE: Imaging protocol: XR of the chest. Views: 1 view. COMPARISON: CR XR chest 1V portable [id number] 06/13/2019 7:19 AM FINDINGS: Lungs: Unremarkable. No consolidation. Pleural spaces: Unremarkable. No pleural effusion. No pneumothorax. Heart/Mediastinum: Unremarkable. No cardiomegaly. Bones/joints: Unremarkable. XR/XR chest 1V portable [id number] IMPRESSION: No acute findings.
--- NOTE | 2021-07-14 14:06 | ED_ITS ---
HPI - Arrhythmia/Palpitations General: Chief Complaint: Arrhythmia/Palpitations Stated Complaint: afib sent by PCP Time Seen by Provider: 07/14/21 13:47 Source: patient Mode of arrival: ambulatory Limitations: no limitations History of Present Illness: 70-year-old female who presents to the emergency room with a rapid heart rate and palpitations. Patient has a known history of atrial fibrillation was previously on a beta-morteza but had side effects and stopped. She has a history of coronary disease does have a stent she is on aspirin and Plavix. No recent change to medication she is not having any chest pain or shortness of breath this morning she is going about her usual activities began having palpitation and irregular heart rate. No shortness of breath no orthopnea no swelling lower extremities. MD complaint: rapid heart beat, heart racing , skipped beats , palpitations, irregular heart beat and atrial fibrillation Onset (ago): hour(s) Duration: constant Severity: moderate Context: occurred during rest Arrhythmia history: atrial fibrillation Associated symptoms: Deny anxiety, cough, diaphoresis, muscle cramps, paresthesias, pre-syncope, sense of impending doom, short of breath, syncope or vomiting Review of Systems Const: Denies: diaphoresis ENMT: Denies: throat pain, ear or mastoid pain, nasal discharge or nasal congestion Card: Reports: irregular heart rhythm and lightheadedness; Denies: chest pain, syncope, pre-syncope or dyspnea on exertion Resp: Denies: dyspnea, productive cough or non-productive cough GI: Denies: vomiting : Denies: flank pain, difficulty voiding, dysuria, urinary frequency or urinary urgency Musc: Denies: muscle cramps Skin/Breast: Denies: rash or pruritus Psych: Denies: anxiety PFSH ED PFSH: Medical History Afib paroxysmal Coronary artery disease COVID-19 (~10/2020) Heart valve disease History of echocardiogram 06/2019 EF 50%, lateral wall hypokinesis, mild thickening of mitral valve and regurgitation of tricuspid (moderate) and pulmonary (mild) valves, normal pulmonary artery pressures History of Holter monitoring 06/2019 - HR range 35-92 with mean 53 bmp, bradycardia up to ~8 hrs long, supraventricular activity was 411 beats out of 150,745 analyzes QRS complexes Hypertension ST elevation MO (STEMI) Status post drug-eluting stent to circumflex. Surgical History H/O tubal ligation H/O: hysterectomy History of cardiac catheterization 06/2019 - 100% proximal circumflex lesion stented, 20% RCA, no LM or LAD obstruction noted History of coronary artery stent placement 06/2019 - circumflex, angioplasty and drug-eluting stent Hx of appendectomy Family History Father CAD (coronary artery disease) Dementia Mother Cancer Grandmother Cancer Brother Cancer Sister Cancer Denies family history of Diabetes Clotting disorder Hyperlipidemia Psychiatric illness Chronic kidney disease (CKD) Suicide Anesthesia complication Bleeding disorder Family history of premature coronary artery disease Lung disease Hypertension Stroke Social History Smoking and tobacco status: current every day smoker Alcohol intake: never Physical Exam Const: COMMON NORMALS: no acute distress GENERAL APPEARANCE: cooperative and comfortable ORIENTATION/CONSCIOUSNESS: Yes awake, Yes oriented to person, Yes oriented to place and Yes oriented to time HENMT: COMMON NORMALS: normocephalic, atraumatic and hearing grossly normal bilaterally HEAD & SCALP: normocephalic and atraumatic Resp: COMMON NORMALS: normal respiratory effort, No retractions, No use of accessory muscles and clear to auscultation bilaterally AUSCULTATION: clear to auscultation bilaterally Cardio: RATE: tachycardic RHYTHM: abnormal rhythm irregularly irregular GI: COMMON NORMALS: Soft to palpation and No hepatosplenomegaly present AUSCULTATION: Yes normoactive bowel sounds PALPATION: Yes Soft to palpation, No Tenderness to palpation present (GI), No Guarding due to palpation present (GI) and Yes No hepatosplenomegaly present Extremity: COMMON NORMALS: normal to inspection, capillary refill normal, no clubbing, cyanosis or edema, no calf tenderness and no pedal edema Neuro: SENSORIUM/ORIENTATION: Yes oriented to person, Yes oriented to place and Yes oriented to time Skin: COMMON NORMALS: no rashes or lesions noted GENERAL SKIN EXAM: no rashes or lesions noted Course Vital Signs: Vital signs: Vital Signs Temperature 97.3 F L 07/14/21 13:17 Pulse Rate 62 07/14/21 19:06 Respiratory Rate 18 07/14/21 19:06 Blood Pressure 148/98 07/14/21 17:20 Pulse Oximetry 97 07/14/21 19:06 MDM - Arrhythmia/Palpitations Medical Decision Making Patient presents with A. fib with RVR. Concerning given her initial hypotension and tachycardia. She was started on Cardizem and this was titrated.She did not respond to this and required changing to an esmolol drip. She did then convert and wanted to go home. We had made arrangements for admission Dr. Aj had seen the patient evaluated and orders were done. See Dr. Aj's discharge note she was ultimately discharged from the ER. Medical Records I reviewed the patient's medical records. Lab Data I reviewed the patient's lab results. : 07/14/21 14:15 07/14/21 14:15 Radiology Impressions Chest X-Ray 07/14/21 13:48 IMPRESSION: No acute findings. Laboratory Results WBC 9.6 10^3/uL (4.0-10.0) 07/14/21 14:15 RBC 5.63 10^6/uL (4.1-5.3) H 07/14/21 14:15 Hgb 15.8 g/dL (11.5-15.3) H 07/14/21 14:15 Hct 48.4 % (37.0-47.0) H 07/14/21 14:15 MCV 86.0 fl (81-99) 07/14/21 14:15 MCH 28.1 pg (28.0-34.0) 07/14/21 14:15 MCHC 32.6 g/dL (30.0-36.0) 07/14/21 14:15 RDW 12.6 % (12.1-15.1) 07/14/21 14:15 Plt Count 213 10^3/cmm (130-400) 07/14/21 14:15 MPV 11.8 fL (7.4-10.4) H 07/14/21 14:15 Neut % (Auto) 71.4 % 07/14/21 14:15 Lymph % (Auto) 17.0 % 07/14/21 14:15 [place] % (Auto) 9.9 % 07/14/21 14:15 Eos % (Auto) 0.7 % 07/14/21 14:15 Baso % (Auto) 0.7 % 07/14/21 14:15 Neut # (Auto) 6.83 10^3/uL (1.8-7.7) 07/14/21 14:15 Lymph # (Auto) 1.6 10^3/uL (0.8-4.8) 07/14/21 14:15 [place] # (Auto) 1.0 10^3/uL (0.2-0.9) H 07/14/21 14:15 Eos # (Auto) 0.1 10^3/uL (0.0-0.8) 07/14/21 14:15 Baso # (Auto) 0.1 10^3/uL (0.0-0.1) 07/14/21 14:15 Nucleated RBC % (auto) 0 % 07/14/21 14:15 Nucleated RBCs # 0.0 /100WBC 07/14/21 14:15 Sodium 140 mmol/L (136-145) 07/14/21 14:15 Potassium 4.3 mmol/L (3.5-5.1) 07/14/21 14:15 Chloride 102 mmol/L (98-107) 07/14/21 14:15 Carbon Dioxide 25 mmol/L (22-29) 07/14/21 14:15 Anion Gap 17.3 (5-19) 07/14/21 14:15 BUN 14 mg/dL (8-23) 07/14/21 14:15 Creatinine 1.0 mg/dL (0.5-0.9) H 07/14/21 14:15 GFR Calculation 55.0 mL/min (90-130) L 07/14/21 14:15 Glucose 98 mg/dL (65-115) 07/14/21 14:15 Calculated Osmolality 290 mOsm/kg (285-295) 07/14/21 14:15 Calcium 9.1 mg/dL (8.5-10.5) 07/14/21 14:15 Magnesium 2.2 mg/dL (1.7-2.3) 07/14/21 16:11 Troponin T Baseline 18 ng/L (0-10) H 07/14/21 14:15 Troponin T 120 Minute 22.49 ng/L (0-10) H 07/14/21 16:11 Delta Troponin T 4.49 ABS# (0-10) 07/14/21 16:11 NT-Pro-B Natriuret Pep 360 pg/mL (0-125) H 07/14/21 16:11 Critical Care Time Critical Care Time: Critical Care Time: Yes Total Critical Care Time: 35 Attestation: The high probability of a clinically significant, sudden or life threatening deterioration of the patient's cardiovascular system(s) required my full and direct attention, intervention and personal management. The critical care time is as shown. This time is in addition to time spent performing any reported procedures but includes the following: [x] Data and vital sign review and interpretation [x] Patient assessment, examination and intervention [x] Documentation [x] Medication orders and management Discharge Plan Discharge Patient Disposition: Placed in Observation Admit Provider: Ellen Aj Clinical Impression: Atrial flutter with rapid ventricular response, Hypertension, Coronary artery disease Condition: Stable Discharge Orders: Discharge Order (Routine); Ordered 07/14/21 Ordered By: Ellen Aj Coding Level of Care Code ED Stabilizer Operator for Chg Elly
[2021-07-14 14:35] LABS: Basophils # 0.1 10^3/uL (0.0-0.1); Basophils % 0.7 %; Eosinophils # 0.1 10^3/uL (0.0-0.8); Eosinophils % 0.7 %; Hematocrit 48.4 % (37.0-47.0); Hemoglobin 15.8 g/dL (11.5-15.3); Lymphocytes # 1.6 10^3/uL (0.8-4.8); Mean Corpuscular HGB Conc 32.6 g/dL (30.0-36.0); Mean Corpuscular Hemoglobin 28.1 pg (28.0-34.0); Mean Platelet Volume 11.8 fL (7.4-10.4); Monocytes % 9.9 %; Neutrophils # 6.83 10^3/uL (1.8-7.7); Neutrophils % 71.4 %; Nucleated Red Blood Cells % 0 %; Platelet Count 213 10^3/cmm (130-400); Red Blood Count 5.63 10^6/uL (4.1-5.3); Red Cell Distribution Width 12.6 % (12.1-15.1); White Blood Count 9.6 10^3/uL (4.0-10.0)
[2021-07-14 14:53] LABS: Anion Gap 17.3 (5-19); Blood Urea Nitrogen 14 mg/dL (8-23); Calcium 9.1 mg/dL (8.5-10.5); Carbon Dioxide 25 mmol/L (22-29); Chloride 102 mmol/L (98-107); Glucose 98 mg/dL (65-115); Osmolality Calculated 290 mOsm/kg (285-295); Potassium 4.3 mmol/L (3.5-5.1); Sodium 140 mmol/L (136-145)
[2021-07-14 14:54] LABS: Troponin(5th) Baseline 18 ng/L (0-10)
--- NOTE | 2021-07-14 15:35 | PC.NURSE ---
EKG done at 1530
[2021-07-14] MEDS: esmolol drip 2,500 MG/250 ML PREMIX 22.32 MG IV (15:48)
--- NOTE | 2021-07-14 15:48 | ECG_ITS ---
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 Measurements Intervals [place] Rate: 132 P: MO: QRS: -57 QRSD: 87 T: 120 QT: 178 QTc: 264 Interpretive Statements ATRIAL FLUTTER WITH RAPID VENTRICULAR RESPONSE POSSIBLE RIGHT VENTRICULAR CONDUCTION DELAY [RSR (QR) IN V1/V2] LEFT ANTERIOR FASCICULAR BLOCK [QRS AXIS <= -45, QR IN I, RS IN II] SEPTAL MYOCARDIAL INFARCTION , OF INDETERMINATE AGE [40+ ms Q WAVE IN V1/V2] ST DEPRESSION, CONSIDER SUBENDOCARDIAL INJURY [0.1+ mV ST DEPRESSION] Compared to ECG 07/14/2021 13:24:55 Left anterior fascicular block now present Atrial fibrillation no longer present Left-axis deviation no longer present Myocardial infarct finding still present ST (T wave) deviation still present Electronically Signed On 07-15-2021 5:49:17 CAR STARTER by Li Cabezas M.D. [id number]
--- NOTE | 2021-07-14 16:29 | PM.HP ---
Providers/Chief Complaint Primary Care Provider: LOGAN Wolff Chief Complaint: afib sent by PCP History of Present Illness Mecca Chavez is a 70 year old female Medications/Allergies Home Medications Medication Instructions Recorded Confirmed Last Taken Type triamcinolone acetonide 0.1 % 1 applic TOPICAL DAILY 06/27/19 01/07/21 06/27/19 05:30 History topical ointment aspirin 81 mg tablet,delayed 81 mg PO DAILY #90 tab 06/28/19 01/07/21 Unknown Rx release atorvastatin 40 mg tablet 40 mg PO BEDTIME #90 tab 06/28/19 01/07/21 Unknown Rx clopidogrel 75 mg tablet 75 mg PO DAILY #90 tab 08/04/20 01/07/21 Unknown Rx cholecalciferol (vitamin D3) 50 50 mcg PO DAILY 01/07/21 01/07/21 Unknown History mcg (2,000 unit) capsule magnesium oxide 400 mg PO DAILY #90 cap 01/07/21 01/07/21 Unknown Rx vitamin B complex (B 1 tab PO DAILY 01/07/21 01/07/21 Unknown History Complex-Vitamin B12) lisinopril 2.5 mg tablet See Rx Instructions .ROUTE 04/13/21 Unknown Rx .COMPLEX #180 tab Allergies Allergy/AdvReac Type Severity Reaction Status Date / Time No Known Allergies Allergy Verified 07/02/19 13:49 PFSH Acute PFSH: Medical History (Updated 07/14/21 @ 16:44 by Ellen Aj MD) Afib paroxysmal Coronary artery disease COVID-19 (~10/2020) Heart valve disease History of echocardiogram 06/2019 EF 50%, lateral wall hypokinesis, mild thickening of mitral valve and regurgitation of tricuspid (moderate) and pulmonary (mild) valves, normal pulmonary artery pressures History of Holter monitoring 06/2019 - HR range 35-92 with mean 53 bmp, bradycardia up to ~8 hrs long, supraventricular activity was 411 beats out of 150,745 analyzes QRS complexes Hypertension ST elevation [place] (STEMI) Status post drug-eluting stent to circumflex. Surgical History (Updated 07/14/21 @ 16:43 by Ellen Aj MD) H/O tubal ligation H/O: hysterectomy History of cardiac catheterization 06/2019 - 100% proximal circumflex lesion stented, 20% RCA, no LM or LAD obstruction noted History of coronary artery stent placement 06/2019 - circumflex, angioplasty and drug-eluting stent Hx of appendectomy Family History Father CAD (coronary artery disease) Dementia Mother Cancer Grandmother Cancer Brother Cancer Sister Cancer Denies family history of Diabetes Clotting disorder Hyperlipidemia Psychiatric illness Chronic kidney disease (CKD) Suicide Anesthesia complication Bleeding disorder Family history of premature coronary artery disease Lung disease Hypertension Stroke Social History (Updated 07/14/21 @ 16:30 by Ellen Aj MD) Smoking and tobacco status: current every day smoker Alcohol intake: never Vitals/I&O/Wt Last Vital Signs Temp 97.3 F L 07/14/21 13:17 Pulse 116 H 07/14/21 13:17 Resp 16 07/14/21 13:17 BP 99/69 07/14/21 13:17 Pulse Ox 96 07/14/21 13:17 07/14/21 07/14/21 07/14/21 06:59 14:59 22:59 Intake Total 0.25 / 0.25 11.667 / 11.917 Balance 0.25 / 0.25 11.667 / 11.917 Weight last 48 hrs Weight 74.389 kg Data : 07/14/21 14:15 07/14/21 14:15 A&P Assessment and plan (1) Atrial flutter with rapid ventricular response: Status: Acute (2) Coronary artery disease: Status: Chronic Qualifiers: Coronary Disease-Associated Artery/Lesion type: [place] artery [place] vs. 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 transplanted heart: [place] heart Associated angina: with unstable angina Hypertension I10 Hypertension type: essential hypertension
[2021-07-14 17:19] LABS: Troponin 5 2HR 22.49 ng/L (0-10)
[2021-07-14] MEDS: metoprolol tartrate 25 mg Tablet PO (17:19)
[2021-07-14 17:20] VITALS: BP 148/98; PULSE 65; RESP 19; O2SAT 97
[2021-07-14 17:23] LABS: Troponin 5 2HR Delta 4.49 ABS# (0-10)
[2021-07-14 17:50] LABS: NT Pro B Type Natriuretic Pept 360 pg/mL (0-125)
--- NOTE | 2021-07-14 17:52 | P.SS_ITS ---
Short Stay Summary Providers Date of Admit/Discharge: 07/14/21 Attending Provider: Ellen Aj MD Primary Care Provider: LOGAN Wolff Chief Complaint: afib sent by PCP HPI History of Present Illness Mecca Rooney is a 70 year old female who presented to the emergency room after being referred by primary care provider. She had gone to see Charlotte Phan because of increasing sinus drainage. She was found to be in atrial fibrillation/a flutter with rapid ventricular response.She states she probably started having palpitations sometime around 1 PM. She does not believe that she was in this abnormal heart rhythm at the beginning of the day. She denies a previously documented history of paroxysmal atrial fibrillation though it has not been captured in our current records. She is not on chronic anticoagulation. She had a ST elevation TX in June 2019 and does follow with cardiology. She had 100% blockage in the circumflex that was stented. She is chronically on aspirin and Plavix as well as statin therapy. She had been prescribed beta-blockade but did not like the side effects of it and has not be en on it for some time. She does continue to take a low-dose of lisinopril. She does not recall other episodes of recent palpitations. Reviewing cardiac work-up that was done in 2019, she had an echocardiogram back then with normal ejection fraction as well as a Holter monitor that did show some supraventricular beats but was only a very small fraction of the total analyzed QRS complexes at that time. Prior to that being done patient had had some near syncopal episodes and the concern was that she might be having arrhythmias. She denies any recent similar symptoms. Heart rate was noted to be as high as 160s in the emergency room. She was tried on a Cardizem drip with no improvement in heart rate. Subsequently changed to esmolol drip with conversion to sinus rhythm with heart rate in the 60s. Hospitalist were contacted for admission secondary to need for continuous drip for rate control. Initial troponin was 18. Twelve-lead EKG shows arrhythmia without acute ST segment elevation though does have some nonspecific changes, likely old, and distribution of previous known [place]. She denies any episodes of chest pain associated with palpitations. Denies pleuritic pain. While she has had some sinus drainage and productive cough these are mild. She had Covid about 6 weeks ago and recovered from it. She had previously had Covid back in 2019 as well. No recent fevers or chills. No GI symptoms to speak of. Review of Systems Const: Reports: fatigue; Denies: fever(s), chills, body aches or malaise ENMT: Reports: nasal congestion and sinus pain; Denies: throat pain or other (loss of taste and smell) Card: Reports: palpitations; Denies: chest pain, edema, lightheadedness, syncope, dyspnea on exertion or orthopnea Resp: Reports: productive cough and chest congestion; Denies: dyspnea, non-productive cough, wheezing, pain on inspiration or hemoptysis GI: Denies: abdominal pain, nausea, vomiting, hematemesis, diarrhea, constipation, hematochezia or melena : Denies: difficulty voiding Musc: Denies: extremity pain or extremity swelling Skin/Breast: Denies: sores Neuro: Denies: headache(s), numbness in extremities, weakness in extremities, difficulty walking, dizziness or difficulty communicating thoughts Psych: Reports: anxiety (about being in hospital due to costs and about taking medications) [place]/Lymph: Reports: easy bruising Home Meds/Allergies Home Medications and Allergies Home Medications Medication Instructions Recorded Confirmed Type Tumeric 1 cap PO DAILY 07/14/21 07/14/21 History clopidogrel 75 mg tablet 75 mg PO BEDTIME 07/14/21 07/14/21 History cyanocobalamin (vitamin B-12) 2,000 mcg PO DAILY 07/14/21 07/14/21 History 2,000 mcg tablet,extended release (Vitamin B-12 ER) lisinopril 2.5 mg tablet 2.5 mg PO BEDTIME 07/14/21 07/14/21 History magnesium oxide 400 mg PO DAILY 07/14/21 07/14/21 History rosuvastatin 20 mg tablet 20 mg PO BEDTIME 07/14/21 07/14/21 History Allergies Allergy/AdvReac Type Severity Reaction Status Date / Time No Known Allergies Allergy Verified 07/02/19 13:49 PFSH Acute PFSH: Medical History (Updated 07/14/21 @ 18:05 by Ellen Aj MD) Afib paroxysmal Coronary artery disease COVID-19 (~10/2020) Heart valve disease History of echocardiogram 06/2019 EF 50%, lateral wall hypokinesis, mild thickening of mitral valve and regurgitation of tricuspid (moderate) and pulmonary (mild) valves, normal pulmonary artery pressures History of Holter monitoring 06/2019 - HR range 35-92 with mean 53 bmp, bradycardia up to ~8 hrs long, supraventricular activity was 411 beats out of 150,745 analyzes QRS complexes Hypertension ST elevation [place] (STEMI) Status post drug-eluting stent to circumflex. Surgical History (Updated 07/14/21 @ 16:43 by Ellen Aj MD) H/O tubal ligation H/O: hysterectomy History of cardiac catheterization 06/2019 - 100% proximal circumflex lesion stented, 20% RCA, no LM or LAD obstruction noted History of coronary artery stent placement 06/2019 - circumflex, angioplasty and drug-eluting stent Hx of appendectomy Family History Father CAD (coronary artery disease) Dementia Mother Cancer Grandmother Cancer Brother Cancer Sister Cancer Denies family history of Diabetes Clotting disorder Hyperlipidemia Psychiatric illness Chronic kidney disease (CKD) Suicide Anesthesia complication Bleeding disorder Family history of premature coronary artery disease Lung disease Hypertension Stroke Social History (Updated 07/14/21 @ 16:30 by Ellen Aj MD) Smoking and tobacco status: current every day smoker Alcohol intake: never Vitals/I&O/Wt Last Vital Signs Temp 97.3 F L 07/14/21 13:17 Pulse 65 07/14/21 17:20 Resp 19 H 07/14/21 17:20 BP 148/98 07/14/21 17:20 Pulse Ox 97 07/14/21 17:20 07/14/21 07/14/21 07/14/21 06:59 14:59 22:59 Intake Total 0.25 / 0.25 50.727 / 50.977 Balance 0.25 / 0.25 50.727 / 50.977 Weight last 48 hrs Weight 74.389 kg Physical Exam Narrative: Constitutional: Awake and alert, cooperative but not wanting to stay HEENT: Patient with sunken appearance and bitemporal areas that she said she has had for a long period of time, denies recent change. Extraocular movements are intact, pupils reactive, nasopharynx with some clear rhinorrhea, oropharynx with moist mucous membranes Neck: Supple Respiratory: Clear to auscultation bilaterally without any rales rhonchi or wheezes, intermittent productive cough Cardiovascular: Regular rate and rhythm no murmurs gallops or rubs Abdomen: Soft Extremities: No pitting edema or calf tenderness Skin: Dry Neuro: Speech clear, face symmetric, moves all extremities Psych: Normal affect beyond not wanting to be here Hospital Course Hospital Course Mrs. Rooney was admitted to hospitalist service with esmolol drip at 50 mics. Almost coinciding with my arrival into the room, patient converted to sinus rhythm. She had been on the esmolol maybe 30 to 40 minutes at the time of conversion. Patient did not have any complaints of chest pain, dizziness, pleurisy, calf pain or hemoptysis nor significant shortness of breath. Only complaints were really allergy/sinus symptoms. She reports having had Covid about 6 weeks ago but recovered from that much better than she had after Covid in 2019. With her known history of coronary artery disease status post prior stent and recurrent arrhythmia for the first time in some time, recommendation was to stay overnight so we could monitor further and continue for cardiac enzymes particularly with initial troponin being above usual baseline. Second troponin came back with delta right at 4. Review of previous cardiac enzymes did show similar values. Twelve-lead EKG has T wave inversion in 2 3 aVF and V4 to V6 likely related to changes post ST elevation [place] back in June 2019. I do not have any interval EKGs for comparison. Patient denied exertional symptoms lately though she has been a little bit fatigued. She is pretty insistent that she does not want to stay in the hospital. We talked about options for rate control. She is willing to consider a lower dose of metoprolol at least in the short-term. She was given a dose of 25 mg oral metoprolol in the emergency room with subsequent discontinuation of esmolol drip. She was monitored for about 45 minutes after discontinuation of esmolol drip and has been maintaining sinus rhythm in the mid 50s or so. Review of Holter monitor from 2019 showed that her mean heart rate was 58 at that point in time. Plan will be to discharge her on 12.5 mg p.o. twice daily for now. I reviewed risk and benefits of full anticoagulation with Mrs. Rooney including some increased risk of bleeding and decreasing risk of significant stroke. At this time Ms. Rooney does not wish to initiate full anticoagulation though says she will stay on her aspirin and Plavix. Explained that antiplatelet therapy is different than anticoagulation and while it can help potentially it has not shown to definitely decrease the risk of stroke in patients with arrhythmias. She will discuss with cardiology upon follow-up. Mrs. Rooney had previously been following with Dr. Lagunas. She requests to follow-up with Dr. Cabezas. Referral is being made. I will order some Flonase and Claritin for sinus/allergy symptoms. Suggested use of nasal saline as well. Recommended patient avoid [id number] decongestants and such for now. Magnesium level was checked and was 2.2. At the time of discharge patient was awake and alert, able to make her own decisions, appeared to understand the potential benefits of staying such as ensuring that her heart rate stayed okay and continuing to evaluate cardiac enzymes versus the risk of leaving and not having something serious be identified and managed appropriately. Lungs were clear, she had a regular rhythm. My recommendation was to stay at least overnight for further monitoring and evaluation I will discharge patient home given that she has converted to sinus rhythm. Importance of prescribed medications was reviewed with her. She was given an opportunity to ask questions which were reviewed. SSS Data Data Completed and Pending: Completed Studies During Hospitalization Category Date Time Status XR chest 1V janine ble [id number] Stat Exams 07/14/21 13:48 Completed Pending at discharge Category Date Time Status Lipid Panel AM LA BS Lab 07/15/21 04:00 Ordered Troponin(5th) 6 h our. Timed Lab 07/14/21 19:48 Ordered Addt'l Data from Hospital Stay: Radiology Impressions Chest X-Ray 07/14/21 13:48 IMPRESSION: No acute findings. Laboratory Results WBC 9.6 10^3/uL (4.0- 10.0) 07/14/21 14:15 RBC 5.63 10^6/uL (4.1 -5.3) H 07/14/21 14:15 Hgb 15.8 g/dL (11.5-1 5.3) H 07/14/21 14:15 Hct 48.4 % (37.0-47.0 ) H 07/14/21 14:15 MCV 86.0 fl (81-99) 07/14/21 14:15 MCH 28.1 pg (28.0-34. 0) 07/14/21 14:15 MCHC 32.6 g/dL (30.0-3 6.0) 07/14/21 14:15 RDW 12.6 % (12.1-15.1 ) 07/14/21 14:15 Plt Count 213 10^3/cmm (130 -400) 07/14/21 14:15 MPV 11.8 fL (7.4-10.4 ) H 07/14/21 14:15 Neut % (Auto) 71.4 % 07/14/21 14:15 Lymph % (Auto) 17.0 % 07/14/21 14:15 [place] % (Auto) 9.9 % 07/14/21 14:15 Eos % (Auto) 0.7 % 07/14/21 14:15 Baso % (Auto) 0.7 % 07/14/21 14:15 Neut # (Auto) 6.83 10^3/uL (1.8 -7.7) 07/14/21 14:15 Lymph # (Auto) 1.6 10^3/uL (0.8- 4.8) 07/14/21 14:15 [place] # (Auto) 1.0 10^3/uL (0.2- 0.9) H 07/14/21 14:15 Eos # (Auto) 0.1 10^3/uL (0.0- 0.8) 07/14/21 14:15 Baso # (Auto) 0.1 10^3/uL (0.0- 0.1) 07/14/21 14:15 Nucleated RBC % (a uto) 0 % 07/14/21 14:15 Nucleated RBCs # 0.0 /100WBC 07/14/21 14:15 Sodium 140 mmol/L (136-1 45) 07/14/21 14:15 Potassium 4.3 mmol/L (3.5-5 .1) 07/14/21 14:15 Chloride 102 mmol/L (98-10 7) 07/14/21 14:15 Carbon Dioxide 25 mmol/L (22-29) 07/14/21 14:15 Anion Gap 17.3 (5-19) 07/14/21 14:15 BUN 14 mg/dL (8-23) 07/14/21 14:15 Creatinine 1.0 mg/dL (0.5-0. 9) H 07/14/21 14:15 GFR Calculation 55.0 mL/min (90-1 30) L 07/14/21 14:15 Glucose 98 mg/dL (65-115) 07/14/21 14:15 Calculated Osmolal ity 290 mOsm/kg (285- 295) 07/14/21 14:15 Calcium 9.1 mg/dL (8.5-10 .5) 07/14/21 14:15 Magnesium 2.2 mg/dL (1.7-2. 3) 07/14/21 16:11 Troponin T Baselin e 18 ng/L (0-10) H 07/14/21 14:15 Troponin T 120 Min pebbles 22.49 ng/L (0-10) H 07/14/21 16:11 Delta Troponin T 4.49 ABS# (0-10) 07/14/21 16:11 NT-Pro-B Natriuret Pep 360 pg/mL (0-125) H 07/14/21 16:11 Diagnoses at Discharge Discharge Diagnosis (1) Atrial flutter with rapid ventricular response: Details from hospital stay: Presenting complaint, associated with palpitations. Has a known history of paroxysmal atrial fibrillation/flutter but has not been captured previously here that I am aware of. Initial EKGs in the ED as well as telemetry monitoring showed it well. Heart rate was as high as 160s. Did not respond to Cardizem drip. Ultimately converted to sinus rhythm after initiation of esmolol. After some discussion, patient was in agreement with resumption of beta-blockade but at a lower dose than what she had previously been prescribed as she has had side effects in the past. Reviewed with patient that cannot rule out asymptomatic episodes of similar arrhythmias at other times. We discussed benefits of anticoagulation including decreasing risk of stroke. At this time patient would like to hold off on initiation of any consideration for anticoagulation and continue aspirin and Plavix which she is taking for her cardiac stent. Plan will be for follow-up to cardiology to further discuss options. Causes of atrial fibrillation such as [id number] medications for allergy and sinus symptoms, developing lung disease from tobacco use, coronary artery disease, sequela of directly or consequential to viral bacterial infections, among others were discussed. Status: Acute (2) Sinusitis: Details from hospital stay: Likely viral versus inflammatory from allergies at this point in time, possibly with early transition to bronchitis given chest congestion that is developing. Is a longtime smoker but not currently demonstrating evidence of wheezing or describing difficulty breathing. Status: Acute (3) Coronary artery disease: Status: Chronic Qualifiers: Coronary Disease-Associated Artery/Lesion type: [place] artery [place] vs. transplanted heart: [place] heart Associated angina: with unstable angina Qualified Code(s): I25.110 - Atherosclerotic heart disease of [place] coronary artery with unstable angina pectoris (4) Hypertension: Status: Chronic Qualifiers: Hypertension type: essential hypertension Qualified Code(s): I10 - Essential (primary) hypertension Discharge Plan Discharge Patient Disposition: Home Condition: Stable Prescriptions: New metoprolol tartrate 25 mg tablet 12.5 mg PO Q12H Qty: 30 1RF fluticasone propionate [Flonase Allergy Relief] 50 mcg/actuation spray,suspension 1 spray intranasal BID Qty: 16 0RF Rx Instructions: administer into each nostril loratadine [Claritin] 10 mg tablet 10 mg PO DAILY Qty: 30 0RF Continued Vitamin B-12 2,000 mcg Tablet Extended Release 2,000 mcg PO DAILY 0RF magnesium oxide 400 mg magnesium Tablet 400 mg PO DAILY 0RF Tumeric 1 cap PO DAILY 0RF aspirin 81 mg tablet,delayed release (DR/EC) 81 mg PO DAILY Qty: 90 4RF rosuvastatin 20 mg tablet 20 mg PO BEDTIME Qty: 30 0RF Changed lisinopril 2.5 mg tablet 2.5 mg PO BEDTIME 30 Days Qty: 30 0RF clopidogrel 75 mg tablet 75 mg PO BEDTIME 30 Days Qty: 30 0RF Other Ambulatory Orders: ECG 12 lead EKG (Routine) Timeframe: 1 Week Facility: [facility] Ordered By: Ellen Aj Referrals: Charlotte Phan FNP [Primary Care Provider] - 1-3 days (aflutter/afib with rvr, converted to sinus rhythm, referred to Cardiology clinic, prescriptions for metoprolol 12.5 bid, declined full anticoagulation at this time) Li Cabezas MD [Physician] - 4-7 days (patient of Dr Lagunas wants to see Dr Cabezas now, visit with atrial flutter/fibrillation with rapid ventricular response that responded to beta blockers, paroxysmal by history, known CAD with circumflex stent, not on anticoagulation presently) Discharge Diet: Advance as tolerated Discharge Activity: Resume usual activity Patient Instructions: Atrial Fibrillation, Metoprolol (By mouth), Atrial Flutter (DC), Opioid Safety Activity Restrictions/Additional Instructions: You were found to be in atrial fibrillation/flutter with rapid ventricular response with heart rate as high as 160. You were initially treated with Cardizem drip with only limited improvement in heart rate. You were ultimately transitioned to an esmolol drip and approximately 30 to 40 minutes after this converted to sinus rhythm with heart rate mid 50s to mid 60s. You received a dose of oral metoprolol in the emergency room and I have written a prescription for metoprolol 25 mg tablets which she will take half a tablet or 12.5 mg twice a day about 12 hours apart. We discussed adding anticoagulation to decrease the risk of stroke and at this time he will follow up with cardiology to discuss further. Prior to discharge you were back into sinus rhythm. 2-hour troponin delta was 4. Magnesium was normal at 2.2. Pro BNP was mildly up at 360 but not unusual with degree of tachycardia or elevated heart rate you had. Should you experience any chest pain, pain with inspiration, increasing difficulty breathing, coughing up blood or other concerning symptoms please return to the emergency room or see your primary care provider right away. Information on atrial fibrillation and atrial flutter have been provided within this packet for your review. Attestations Medical Necessity Statement*: Anticipated stay less than 2 midnights in a patient with a remote history of paroxysmal SVT presenting with atrial flutter/fibrillation with rapid ventricular response. She has been started on rate controlling agents. 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 transplanted heart: [place] heart Associated angina: with unstable angina Hypertension I10 Hypertension type: essential hypertension Sinusitis J32.9
[2021-07-14 18:02] LABS: Magnesium 2.2 mg/dL (1.7-2.3)
[2021-07-14 19:06] VITALS: PULSE 62; RESP 18; O2SAT 97
--- NOTE | 2021-07-14 19:48 | ECG_ITS ---
[facility] Test Date: 2021-07-14 Pat Name: Mecca Chavez Department: Room: Gender: Female Medical Typist: : 1950 Requested By: Donovan Villarreal Order Number: [id number] Manuela MD: Li Cabezas M.D. Measurements Intervals [place] Rate: 169 P: [place]: QRS: -38 QRSD: 85 T: 90 QT: 265 QTc: 444 Interpretive Statements ATRIAL FIBRILLATION WITH RAPID VENTRICULAR RESPONSE LEFT AXIS DEVIATION [QRS AXIS < -30] POSSIBLE RIGHT VENTRICULAR CONDUCTION DELAY [RSR (QR) IN V1/V2] SEPTAL MYOCARDIAL INFARCTION , PROBABLY OLD [40+ ms Q WAVE IN V1/V2] ST DEPRESSION, CONSIDER SUBENDOCARDIAL INJURY [0.1+ mV ST DEPRESSION] Compared to ECG 06/13/2019 07:54:01 Left-axis deviation now present ST (T wave) deviation now present Sinus bradycardia no longer present T-wave abnormality no longer present Possible ischemia no longer present Myocardial infarct finding still present Electronically Signed On 07-15-2021 5:51:21 [employer] F[employer] WORKER by Li Cabezas M.D. [id number]
== END 2021-07-14 19:07 | disposition home or self-care (01) ==
LOC: ER 15:47 → ER IP 17:31
PROVIDERS: Admitting Provider Hospitalist; Emergency Provider Family Medicine; PCP Nurse Practitioner Family; Visit Provider Hospitalist
DX: I48.92 Unspecified atrial flutter (principal); I48.0 Paroxysmal atrial fibrillation; I25.110 Atherosclerotic heart disease of native coronary artery with unstable angina pectoris; I10 Essential (primary) hypertension; J32.9 Chronic sinusitis, unspecified; Z79.02 Long term (current) use of antithrombotics/antiplatelets; Z79.82 Long term (current) use of aspirin; I25.2 Old myocardial infarction; Z86.16 Personal history of COVID-19; Z82.49 Family history of ischemic heart disease and other diseases of the circulatory system; F17.210 Nicotine dependence, cigarettes, uncomplicated; Z95.1 Presence of aortocoronary bypass graft
CPT/HCPCS: 71045; 80048; 83735; 83880; 84484; 85025; 93005; 96365; 96366; 96367; 96375; 99285; G0378; J3490

== ENCOUNTER → 2021-10-09 09:17 | Outpatient (BNVA) | payer MEDICARE, SELFPAY | PROVIDERS: PCP Nurse Practitioner Family; Visit Provider Internal Medicine Cardiovascular Disease | DX: I48.19 Other persistent atrial fibrillation (principal); I25.10 Atherosclerotic heart disease of native coronary artery without angina pectoris; I10 Essential (primary) hypertension; E78.5 Hyperlipidemia, unspecified; F17.200 Nicotine dependence, unspecified, uncomplicated | CPT/HCPCS: 99214 ==

== ENCOUNTER 2022-02-18 11:31 | Observation (INO) | payer MEDICARE, SELFPAY ==
[2022-02-18] VITALS (48 sets, daily range): BP systolic 131–187; BP diastolic 65–98; PULSE 50–102; RESP 13–29; TEMP 36.4–36.6; O2SAT 94–99; BMI 24.3
--- NOTE | 2022-02-18 11:39 | XRR_ITS ---
PROCEDURE INFORMATION: Exam: XR Chest Exam date and time: 02/18/2022 12:30 PM Age: 71 years old Clinical indication: Other: Nausea vomiting; Additional info: Nauiesa/vomtiign TECHNIQUE: Imaging protocol: Radiologic exam of the chest. Views: 1 view. COMPARISON: CR XR chest 1V portable [id number] 07/14/2021 2:34 PM FINDINGS: Lungs: Unremarkable. No consolidation. Pleural spaces: Unremarkable. No pleural effusion. No pneumothorax. Heart/Mediastinum: Unremarkable. No cardiomegaly. Bones/joints: Unremarkable. XR/XR chest 1V portable [id number] IMPRESSION: No acute findings.
--- NOTE | 2022-02-18 11:39 | ECG_ITS ---
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 Measurements Intervals [place] Rate: 50 P: 34 MA: 179 QRS: -34 QRSD: 95 T: 263 QT: 479 QTc: 438 Interpretive Statements SINUS BRADYCARDIA LEFT AXIS DEVIATION [QRS AXIS < -30] POSSIBLE SEPTAL MYOCARDIAL INFARCTION , PROBABLY OLD [30 ms Q WAVE IN V1/V2] MARKED T-WAVE ABNORMALITY, CONSIDER ANTEROLATERAL ISCHEMIA MARKED T-WAVE ABNORMALITY, CONSIDER INFERIOR ISCHEMIA Compared to ECG 02/18/2022 13:32:47 Left-axis deviation now present ST (T wave) deviation now present Myocardial infarct finding still present Electronically Signed On 02-18-2022 17:07:44 CDT by Li Cabezas M.D. [id number]
--- NOTE | 2022-02-18 11:42 | ED_ITS ---
HPI - General Adult General: Chief complaint: General Medical Stated complaint: n/v Time Seen by Provider: 02/18/22 11:35 History of Present Illness: Patient is a 71-year-old female with a history of CAD with stent x1, hypertension, hyperlipidemia presents emergency with cute onset of generalized weakness, nausea vomiting and lightheadedness. Patient tells me that she was doing well up until 9 AM this morning at which point patient began having lightheadedness. Patient denies any vertical sensory, focal weakness in the arms or legs, facial droop, slurring of speech or diplopia . Since, he has multiple has had multiple episodes of emesis. Patient reports feeling lightheaded but denies any passing out or any associated chest pain, short of breath palpitation or lightheadedness. Onset:9am Duration:ongoing Location:home Severity:moderate Associated symptoms: Deny chest pain, dyspnea, nausea, rash, palpitations or vomiting Review of Systems Const: Reports: fatigue and other (+diaphoresis); Denies: fever(s) or chills Eyes: Denies: change in vision ENMT: Denies: mouth pain Card: Denies: chest pain or palpitations Resp: Denies: dyspnea or non-productive cough GI: Denies: abdominal pain, nausea, vomiting or diarrhea : Denies: dysuria Musc: Denies: extremity pain Skin/Breast: Denies: rash or new lesions Neuro: Reports: other (+light-headedness); Denies: weakness in extremities Psych: Reports: other (Normal mood) Fuentes/Lymph: Denies: easy bruising PFS ED PFSH: Medical History (Updated 10/11/21 @ 12:08 by Li Cabezas MD) Afib paroxysmal Coronary artery disease COVID-19 (~10/2020) Dyslipidemia Heart valve disease History of echocardiogram 06/2019 EF 50%, lateral wall hypokinesis, mild thickening of mitral valve and regurgitation of tricuspid (moderate) and pulmonary (mild) valves, normal pulmonary artery pressures History of Holter monitoring 06/2019 - HR range 35-92 with mean 53 bmp, bradycardia up to ~8 hrs long, supraventricular activity was 411 beats out of 150,745 analyzes QRS complexes Hypertension ST elevation AR (STEMI) Status post drug-eluting stent to circumflex. Surgical History H/O tubal ligation H/O: hysterectomy History of cardiac catheterization 06/2019 - 100% proximal circumflex lesion stented, 20% RCA, no LM or LAD obstruction noted History of coronary artery stent placement 06/2019 - circumflex, angioplasty and drug-eluting stent Hx of appendectomy Family History Father CAD (coronary artery disease) Dementia Mother Cancer Grandmother Cancer Brother Cancer Sister Cancer Denies family history of Diabetes Clotting disorder Hyperlipidemia Psychiatric illness Chronic kidney disease (CKD) Suicide Anesthesia complication Bleeding disorder Family history of premature coronary artery disease Lung disease Hypertension Stroke Social History Smoking and tobacco status: current every day smoker Alcohol intake: never Physical Exam Const: COMMON NORMALS: alert HENMT: COMMON NORMALS: atraumatic HEAD & SCALP: atraumatic MOUTH: moist mucous membranes not abnormal Eye: COMMON NORMALS: EOMs intact bilaterally and conjunctivae normal CONJUNCTIVA: Yes conjunctivae normal Neck/C-Spine: COMMON NORMALS: full ROM and supple Resp: COMMON NORMALS: normal respiratory effort and clear to auscultation bilaterally AUSCULTATION: clear to auscultation bilaterally Cardio: COMMON NORMALS: regular rate RATE: regular rate GI: COMMON NORMALS: Soft to palpation and non-tender PALPATION: Yes Soft to palpation Extremity: COMMON NORMALS: full ROM Neuro: SENSORIUM/ORIENTATION: Yes alert MOTOR EXAM: No Abnormal motor strength present and Other motor observations present (no focal motor deficits) Psych: COMMON NORMALS: speech normal SPEECH: Yes normal speech MOOD & AFFECT: Yes euthymic mood Course Vital Signs: Vital signs: Vital Signs Temperature 97.6 F 02/18/22 11:45 Pulse Rate 50 L 02/18/22 14:50 Respiratory Rate 23 H 02/18/22 14:50 Blood Pressure 171/87 02/18/22 14:50 Pulse Oximetry 96 02/18/22 14:50 Oxygen Delivery Me thod 02/18/22 11:45 [facility] - General Adult Medical Decision Making Patient is a 71-year-old female with a history of CAD with stent x1, hypertension, hyperlipidemia presents emergency with cute onset of generalized weakness, nausea vomiting and lightheadedness. On arrival, patient is moderate distress with diaphoresis and nausea. Patient observed for period time with improvement in symptoms. Patient is noted to have elevated blood pressure today. Troponin x2 with delta less than 5. On EKG, patient is found to have diffuse T wave inversion in V2/V3/aVF, V4?V6. Patient appears to be symptomatically improved with IVF. Disposition: observation Lab Data : 02/18/22 12:14 02/18/22 12:14 Radiology Impressions Chest X-Ray 02/18/22 11:39 IMPRESSION: No acute findings. Head CT 02/18/22 13:01 IMPRESSION: No acute intracranial abnormality. Laboratory Results WBC 7.5 10^3/uL (4.0-10.0) 02/18/22 12:14 RBC 5.24 10^6/uL (4.1-5.3) 02/18/22 12:14 Hgb 15.0 g/dL (11.5-15.3) 02/18/22 12:14 Hct 44.8 % (37.0-47.0) 02/18/22 12:14 MCV 85.5 fl (81-99) 02/18/22 12:14 MCH 28.6 pg (28.0-34.0) 02/18/22 12:14 MCHC 33.5 g/dL (30.0-36.0) 02/18/22 12:14 RDW 12.7 % (12.1-15.1) 02/18/22 12:14 Plt Count 150 10^3/cmm (130-400) 02/18/22 12:14 MPV 12.4 fL (7.4-10.4) H 02/18/22 12:14 Neut % (Auto) 82.6 % 02/18/22 12:14 Lymph % (Auto) 11.3 % 02/18/22 12:14 [place] % (Auto) 5.1 % 02/18/22 12:14 Eos % (Auto) 0.3 % 02/18/22 12:14 Baso % (Auto) 0.4 % 02/18/22 12:14 Neut # (Auto) 6.22 10^3/uL (1.8-7.7) 02/18/22 12:14 Lymph # (Auto) 0.9 10^3/uL (0.8-4.8) 02/18/22 12:14 [place] # (Auto) 0.4 10^3/uL (0.2-0.9) 02/18/22 12:14 Eos # (Auto) 0.0 10^3/uL (0.0-0.8) 02/18/22 12:14 Baso # (Auto) 0.0 10^3/uL (0.0-0.1) 02/18/22 12:14 Nucleated RBC % (auto) 0 % 02/18/22 12:14 Nucleated RBCs # 0.0 /100WBC 02/18/22 12:14 Sodium 139 mmol/L (136-145) 02/18/22 12:14 Potassium 4.1 mmol/L (3.5-5.1) 02/18/22 12:14 Chloride 102 mmol/L (98-107) 02/18/22 12:14 Carbon Dioxide 26 mmol/L (22-29) 02/18/22 12:14 Anion Gap 15.1 (5-19) 02/18/22 12:14 BUN 16 mg/dL (8-23) 02/18/22 12:14 Creatinine 0.8 mg/dL (0.5-0.9) 02/18/22 12:14 GFR Calculation 70.9 mL/min (90-130) L 02/18/22 12:14 Glucose 116 mg/dL (65-115) H 02/18/22 12:14 POC Glucose 116 mg/dL (70-110) H 02/18/22 11:47 Calculated Osmolality 290 mOsm/kg (285-295) 02/18/22 12:14 Calcium 9.0 mg/dL (8.5-10.5) 02/18/22 12:14 Total Bilirubin 0.7 mg/dL (0.15-1.2) 02/18/22 12:14 AST 14 U/L (0-32) 02/18/22 12:14 ALT 11 U/L (0-33) 02/18/22 12:14 Alkaline Phosphatase 67 U/L (35-105) 02/18/22 12:14 Troponin T Baseline 9 ng/L (0-10) 02/18/22 12:14 Troponin T 120 Minute 10.48 ng/L (0-10) H 02/18/22 13:58 Delta Troponin T 1.48 ABS# (0-10) 02/18/22 13:58 Total Protein 6.7 g/dL (6.6-8.7) 02/18/22 12:14 Albumin 3.9 g/dL (3.5-5.2) 02/18/22 12:14 Globulin 2.8 g/dL (1.3-4.6) 02/18/22 12:14 Lipase 28 U/L (13-60) 02/18/22 12:14 Lipase Cancelled 02/18/22 12:14 Urine Color Yellow (Yellow) 02/18/22 14:37 Urine Appearance Clear (CLEAR) 02/18/22 14:37 Urine pH 6.5 (5-7) 02/18/22 14:37 Ur Specific [place] 1.020 (1.005-1.030) 02/18/22 14:37 Urine Protein Neg (Negative) 02/18/22 14:37 Urine Glucose (UA) Norm (Normal) 02/18/22 14:37 Urine Ketones 1+ (Negative) H 02/18/22 14:37 Urine Blood 2+ (Negative) H 02/18/22 14:37 Urine Nitrate Negative (Negative) 02/18/22 14:37 Urine Bilirubin Neg (Negative) 02/18/22 14:37 Urine Urobilinogen Neg mg/dL (Negative) 02/18/22 14:37 Ur Leukocyte Esterase Negative (Negative) 02/18/22 14:37 Urine RBC None /hpf (0-2) 02/18/22 14:37 Urine WBC None /hpf (0-5) 02/18/22 14:37 Ur Squamous Epith Cells 0-4 /hpf (0-5) H 02/18/22 14:37 Amorphous Sediment Not Reportable 02/18/22 14:37 Urine Bacteria None /hpf (NONE) 02/18/22 14:37 Imaging Data Other Imaging: Radiologist's impression: [address] [address] [address] Scan Report Signed Patient: Mecca Chavez Unit #: [id number] : 1950 Age/Sex: 71 / F ADM Date: 02/18/22 Loc: ER Room/Bed: Attending Dr: Ordering Provider/Ordering MD: Bhavik Saldana MD Date of Service: 02/18/22 Procedure(s): CT head wo con* [id number] Accession Number(s): [id number] Report Number: [id number] PROCEDURE INFORMATION: Exam: CT Head Without Contrast Exam date and time: 02/18/2022 2:18 PM Age: 71 years old Clinical indication: Pain; Headache not specified; Patient HX: SANDERS, high blood pressure, n/v; Additional info: N. V TECHNIQUE: Imaging protocol: Computed tomography of the head without contrast. Radiation optimization: All CT scans at this facility use at least one of these dose optimization techniques: automated exposure control; mA and/or kV adjustment per patient size (includes targeted exams where dose is matched to clinical indication); or iterative reconstruction. COMPARISON: CT head wo con* [id number] 07/10/2015 11:15 AM RADIATION DOSE METRICS: Total DLP (mGy-cm): 1068.28 FINDINGS: Brain: No acute intracranial hemorrhage, cerebral edema, or midline shift.? Mild cerebellar atrophy is noted, similar to the prior exam. Cerebral ventricles: No hydrocephalus. Paranasal sinuses: There is no acute sinusitis. Mastoid air cells: Visualized mastoid air cells are well aerated. Orbital cavities: The visualized orbits appear unremarkable. Bones/joints: No acute fracture. Soft tissues: Unremarkable. CT/CT head wo con* [id number] IMPRESSION: No acute intracranial abnormality. ? Dictated By: Danny Pinto MD Signed By: Danny Pinto MD Signed Date/Time: 02/18/22 1458 DD/ [address] [address] XRay Report Signed Patient: Mecca Chavez Unit #: [id number] : 1950 Age/Sex: 71 / F ADM Date: 02/18/22 Loc: ER Room/Bed: Attending Dr: Ordering Provider/Ordering MD: Bhavik Saldana MD Date of Service: 02/18/22 Procedure(s): XR chest 1V portable [id number] Accession Number(s): [id number] Report Number: [id number] PROCEDURE INFORMATION: Exam: XR Chest Exam date and time: 02/18/2022 12:30 PM Age: 71 years old Clinical indication: Other: Nausea vomiting; Additional info: Nauiesa/vomtiign TECHNIQUE: Imaging protocol: Radiologic exam of the chest. Views: 1 view. COMPARISON: CR XR chest 1V portable [id number] 07/14/2021 2:34 PM FINDINGS: Lungs: Unremarkable. No consolidation. Pleural spaces: Unremarkable. No pleural effusion. No pneumothorax. Heart/Mediastinum: Unremarkable. No cardiomegaly. Bones/joints: Unremarkable. XR/XR chest 1V portable [id number] IMPRESSION: No acute findings. ? Dictated By: Abdelrahman Francis Signed By: Abdelrahman Francis Signed Date/Time: 02/18/22 1311 DD/ 1230 Discharge Plan Discharge Condition: Stable Prescriptions: No Action cholecalciferol (vitamin D3) [Vitamin D3] 125 mcg (5,000 unit) tablet 125 mcg PO DAILY Rx Instructions: 3 tabs daily metoprolol tartrate 25 mg tablet 12.5 mg PO DAILY Claritin 10 mg tablet 10 mg PO DAILY PRN clopidogrel 75 mg tablet 75 mg PO BEDTIME Qty: 30 1RF Vitamin B-12 2,000 mcg Tablet Extended Release 2,000 mcg PO DAILY magnesium oxide 400 mg magnesium Tablet 400 mg PO DAILY Tumeric 1 cap PO DAILY Flonase Allergy Relief 50 mcg/actuation spray,suspension 1 spray intranasal BID Qty: 16 0RF Rx Instructions: administer into each nostril lisinopril 2.5 mg tablet 2.5 mg PO BEDTIME 30 Days Qty: 30 0RF rosuvastatin 20 mg tablet 20 mg PO BEDTIME Qty: 30 0RF aspirin 81 mg tablet,delayed release (DR/EC) 81 mg PO DAILY Qty: 90 4RF Referrals: Charlotte Phan FNP [Primary Care Provider] - Coding Level of Care Code ED Supervisor [employer] for Chg Fwd Exam Comprehensive
[2022-02-18 11:49] LABS: Glucose Point of Care 116 mg/dL (70-110)
[2022-02-18] MEDS: sodium chloride 0.9% 500 ML IV (12:13)
[2022-02-18 12:22] LABS: Basophils % 0.4 %; Eosinophils % 0.3 %; Hematocrit 44.8 % (37.0-47.0); Lymphocytes # 0.9 10^3/uL (0.8-4.8); Lymphocytes % 11.3 %; Mean Corpuscular HGB Conc 33.5 g/dL (30.0-36.0); Mean Corpuscular Hemoglobin 28.6 pg (28.0-34.0); Mean Corpuscular Volume 85.5 fl (81-99); Mean Platelet Volume 12.4 fL (7.4-10.4); Monocytes # 0.4 10^3/uL (0.2-0.9); Monocytes % 5.1 %; Neutrophils # 6.22 10^3/uL (1.8-7.7); Neutrophils % 82.6 %; Nucleated Red Blood Cells % 0 %; Platelet Count 150 10^3/cmm (130-400); Red Blood Count 5.24 10^6/uL (4.1-5.3); Red Cell Distribution Width 12.7 % (12.1-15.1); White Blood Count 7.5 10^3/uL (4.0-10.0)
[2022-02-18 12:47] LABS: Troponin(5th) Baseline 9 ng/L (0-10)
[2022-02-18 12:50] LABS: Alanine Aminotransferase 11 U/L (0-33); Albumin Level 3.9 g/dL (3.5-5.2); Alkaline Phosphatase 67 U/L (35-105); Anion Gap 15.1 (5-19); Aspartate Amino Transferase 14 U/L (0-32); Blood Urea Nitrogen 16 mg/dL (8-23); Carbon Dioxide 26 mmol/L (22-29); Chloride 102 mmol/L (98-107); Globulin 2.8 g/dL (1.3-4.6); Glomerular Filtration Rate 70.9 mL/min (90-130); Glucose 116 mg/dL (65-115); Lipase 28 U/L (13-60); Osmolality Calculated 290 mOsm/kg (285-295); Potassium 4.1 mmol/L (3.5-5.1); Sodium 139 mmol/L (136-145); Total Bilirubin 0.7 mg/dL (0.15-1.2); Total Protein 6.7 g/dL (6.6-8.7)
--- NOTE | 2022-02-18 13:01 | CTR_ITS ---
PROCEDURE INFORMATION: Exam: CT Head Without Contrast Exam date and time: 02/18/2022 2:18 PM Age: 71 years old Clinical indication: Pain; Headache not specified; Patient HX: SANDERS, high blood pressure, n/v; Additional info: N. V TECHNIQUE: Imaging protocol: Computed tomography of the head without contrast. Radiation optimization: All CT scans at this facility use at least one of these dose optimization techniques: automated exposure control; mA and/or kV adjustment per patient size (includes targeted exams where dose is matched to clinical indication); or iterative reconstruction. COMPARISON: CT head wo con* [id number] 07/10/2015 11:15 AM RADIATION DOSE METRICS: Total DLP (mGy-cm): 1068.28 FINDINGS: Brain: No acute intracranial hemorrhage, cerebral edema, or midline shift. Mild cerebellar atrophy is noted, similar to the prior exam. Cerebral ventricles: No hydrocephalus. Paranasal sinuses: There is no acute sinusitis. Mastoid air cells: Visualized mastoid air cells are well aerated. Orbital cavities: The visualized orbits appear unremarkable. Bones/joints: No acute fracture. Soft tissues: Unremarkable. CT/CT head wo con* [id number] IMPRESSION: No acute intracranial abnormality.
--- NOTE | 2022-02-18 13:39 | ECG_ITS ---
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 Measurements Intervals [place] Rate: 50 P: 48 DE: 182 QRS: -18 QRSD: 98 T: 266 QT: 480 QTc: 438 Interpretive Statements SINUS BRADYCARDIA SEPTAL MYOCARDIAL INFARCTION , PROBABLY OLD MARKED T-WAVE ABNORMALITY, CONSIDER ANTEROLATERAL ISCHEMIA MARKED T-WAVE ABNORMALITY, CONSIDER INFERIOR ISCHEMIA Compared to ECG 07/14/2021 16:43:03 T-wave abnormality now present Possible ischemia now present Sinus rhythm no longer present Left-axis deviation no longer present Myocardial infarct finding still present Electronically Signed On 02-18-2022 17:11:53 CDT by Li Cabezas M.D. [id number]
[2022-02-18 14:23] LABS: Troponin 5 2HR 10.48 ng/L (0-10)
[2022-02-18 14:28] LABS: Troponin 5 2HR Delta 1.48 ABS# (0-10)
[2022-02-18 15:07] LABS: Add Urine Microscopic? YES; Bilirubin Urine Neg (Negative); Blood Urine 2+ (Negative); Glucose Urine UA Norm (Normal); Ketones Urine 1+ (Negative); Leukocyte Esterase Urine Negative (Negative); Nitrate Urine Negative (Negative); Protein Urine Neg (Negative); Urine Appearance Clear (CLEAR); Urine Color Yellow (Yellow); Urobilinogen Urine Neg (Negative); pH Urine 6.5 (5-7)
[2022-02-18 15:10] LABS: Add Urine Culture? No; Squamous Epithelial Cell Urine 0-4 /hpf (0-5)
--- NOTE | 2022-02-18 16:08 | USCV_ITS ---
Mecca Chavez Age: 71 Gender: F : 1950 Exam Date: 02/18/2022 18:51 Ordering Phys: Omega Richardson MD Technologist: TAIWO Exam Location: [facility] [place] Indication: intermittent shortness of breath. Not short of breath at time of exam per patient. History of cardiac stenting 2019 BP: 157 / 98 HR: 60 Rhythm: Sinus Technical Quality: Adequate MEASUREMENTS (Male / Female) Normal Values 2D ECHO LV Diastolic Diameter PLAX 4.2 cm 4.2 - 5.9 / 3.9 - 5.3 cm LV Systolic Diameter PLAX 3.0 cm IVS Diastolic Thickness 1.0 cm 0.6 - 1.0 / 0.6 - 0.9 cm IVS Systolic Thickness 1.2 cm LVPW Diastolic Thickness 1.2 cm 0.6 - 1.0 / 0.6 - 0.9 cm LVPW Systolic Thickness 1.7 cm LVOT Diameter 2.1 cm LV Ejection Fraction 2D Teich 54.7 % LV Ejection Fraction MOD 2C 67.2 % LV Ejection Fraction 2C AL 67.8 % LA Diameter 3.1 cm LA Width 3.3 cm LA Height 5.1 cm RA Width 3.7 cm RA Height 3.8 cm Aorta at Sinotubular Diameter 3.2 cm IVC Diameter 1.1 cm M-MODE Aortic Annulus Diameter 3.5 cm LA Ao Ratio MM 0.8 MV E Point Septal Separation 0.5 cm DOPPLER AV Peak Velocity 139.0 cm/s LVOT Peak Velocity 110.0 cm/s AV Area Cont Eq vti 2.7 cm squared AV Area Cont Eq pk 2.7 cm squared MV Peak Velocity 89.0 cm/s MV Area PHT 2.5 cm squared Mitral E to A Ratio 0.7 MV E' Velocity 33.0 cm/s Mitral E to MV E' Ratio 9.8 Mitral E to LV E' Lateral Ratio 9.8 Mitral E to LV E' Septal Ratio 9.8 TR Peak Velocity 257.8 cm/s TR Peak Gradient 26.6 mmHg TV Peak E Velocity 51.0 cm/s Right Atrial Pressure 5.0 mmHg Pulmonary Artery Systolic Pressu 31.6 mmHg PV Peak Velocity 82.0 cm/s FINDINGS Left Ventricle Left ventricle is normal in size. LV systolic function is normal with EF of 60 to 65%. No regional wall motion abnormalities are seen. Grade 1 diastolic dysfunction Right Ventricle Normal in size and function Right Atrium Normal in size Left Atrium Mildly dilated Mitral Valve Structurally normal mitral valve. Mild mitral regurgitation Aortic Valve Structurally normal aortic valve. No significant stenosis or regurgitation Tricuspid Valve Mild tricuspid regurgitation. RVSP is 30 to 35 mmHg. Pulmonic Valve Mild pulmonic regurgitation Pericardium Normal Aorta Mildly dilated ascending aorta IVC Appears to be normal CONCLUSIONS LV systolic function is normal with EF of 60 to 65%. Grade 1 diastolic dysfunction Mildly dilated left atrium Mild mitral regurgitation Mild tricuspid regurgitation Mild pulmonic regurgitation. Mildly dilated ascending aorta. Compared to prior echocardiogram from 06/28/2019, mitral regurgitation appears to be less signfiicant Alex Montana MD (Electronically Signed) Final Date: 19 February 2022 14:44 S
--- NOTE | 2022-02-18 16:08 | USCV_ITS ---
Mecca Chavez Age: 71 Gender: F : 1950 Exam Date: 02/18/2022 18:25 Ordering Phys: Omega Richardson MD Technologist: TAIWO Exam Location: [facility] [place] Indication: AMS, long-term smoker, continues smoking, no DM, no history of TIA / CVA Risk Factors: AMS, long-term smoker, continues smoking, no DM, no history of TIA / CVA Previous Vascular Surgery: None Right Brachial BP: / Left Brachial BP: / Right Left Velocity (cm/s) Spectral Plaque Velocity (cm/s) Spectral Plaque Syst/Diast Broadening Syst/Diast Broadening 112.50/19.80 None None Prox CCA 77.20 / 16.40 None None 87.10/ 23.20 None None Mid CCA 98.10 / 20.90 None None 73.90/ 19.80 None Homo Distal CCA 84.90 / 26.50 None Homo 52.60/ 12.50 Min Chase Prox ICA 57.50 / 19.40 Min Homo 81.50/ 28.90 Min Homo Mid ICA 73.80 / 27.20 Min [place] 68.40/ 25.00 None Homo Distal ICA 75.40 / 24.10 None Homo 153.80 Min Homo ECA 94.80 Min Homo 0.72 ICA/CCA 0.77 Antegrade Vertebral Antegrade 45.90/ 12.30 cm/s 70.60/ 22.10 cm/s Tri Subclavian Tri 100.8 116.9 0 0 FINDINGS Comparison: none available. No significant elevation of systolic or diastolic velocities. Mild plaque at the bifurcations. Antegrade vertebral arteries. CONCLUSIONS Bilateral ICA stenosis less than 50%. Mild carotid atherosclerosis. Dr. Ernestina Farmer DO (Electronically Signed) Final Date: 19 February 2022 06:58 S
--- NOTE | 2022-02-18 16:09 | PM.HP ---
Providers/Chief Complaint Primary Care Provider: LOGAN Wolff Chief Complaint: n/v History of Present Illness Mecca Chavez is a 71 year old female with a past medical history of atrial fibrillation, paroxysmal, not on anticoagulation, history of CAD status post stenting to left circumflex, history of severe two-vessel CAD, hypertension, dyslipidemia, who presents [facility] for 3 episodes of lightheadedness and dizziness. She tells me that on Tuesday she had episode of lightheadedness, dizziness, fatigue, lasting a few minutes, not associate with position, she also tells me that she had some diarrhea without episode of nausea. She had another episode on Tuesday, not associate with position, no chest pain, no palpitations, no strokelike symptoms. Then again today she had another episode of lightheadedness, while she was driving in her car, lasting a few hours, no chest pain, no palpitations, strokelike symptoms, no history of strokes, no unsteadiness, no falls Review of Systems Const: Denies: fatigue Card: Denies: chest pain or palpitations GI: Denies: abdominal pain : Denies: flank pain Neuro: Denies: headache(s) or numbness in extremities Medications/Allergies Home Medications Medication Instructions Recorded Confirmed Last Taken Type cyanocobalamin (vitamin B-12) 2,000 mcg PO DAILY 07/14/21 02/18/22 02/17/22 History 2,000 mcg tablet,extended release (Vitamin B-12 ER) lisinopril 2.5 mg tablet 2.5 mg PO BEDTIME 30 days #30 tabs 07/14/21 02/18/22 02/17/22 Rx magnesium oxide 400 mg PO DAILY 07/14/21 02/18/22 02/17/22 History rosuvastatin 20 mg tablet 20 mg PO BEDTIME #30 tabs 07/14/21 02/18/22 02/17/22 Rx cholecalciferol (vitamin D3) 125 125 mcg PO DAILY 10/09/21 02/18/22 Unknown History mcg (5,000 unit) tablet (Vitamin D3) loratadine 10 mg tablet (Claritin) 10 mg PO DAILY PRN Allergy Symptoms 10/09/21 02/18/22 Unknown History metoprolol tartrate 25 mg tablet 12.5 mg PO DAILY 10/09/21 02/18/2222 History aspirin 325 mg capsule 325 mg PO DAILY 02/18/22 02/18/22 02/17/22 History fluticasone propionate 50 1 spray intranasal BID PRN Allergy 02/18/22 02/18/22 Unknown History mcg/actuation nasal Symptoms spray,suspension (Flonase Allergy Relief) tumeric 100 mg-chintan 150 mg-olive 1 cap PO DAILY 02/18/22 02/18/22 02/17/22 History 50 mg-oreg 150 mg-caprylate capsule Allergies Allergy/AdvReac Type Severity Reaction Status Date / Time No Known Allergies Allergy Verified 02/18/22 15:30 PFSH Acute PFSH: Medical History Afib paroxysmal Coronary artery disease COVID-19 (~10/2020) Dyslipidemia Heart valve disease History of echocardiogram 06/2019 EF 50%, lateral wall hypokinesis, mild thickening of mitral valve and regurgitation of tricuspid (moderate) and pulmonary (mild) valves, normal pulmonary artery pressures History of Holter monitoring 06/2019 - HR range 35-92 with mean 53 bmp, bradycardia up to ~8 hrs long, supraventricular activity was 411 beats out of 150,745 analyzes QRS complexes Hypertension ST elevation ND (STEMI) Status post drug-eluting stent to circumflex. Surgical History H/O tubal ligation H/O: hysterectomy History of cardiac catheterization 06/2019 - 100% proximal circumflex lesion stented, 20% RCA, no LM or LAD obstruction noted History of coronary artery stent placement 06/2019 - circumflex, angioplasty and drug-eluting stent Hx of appendectomy Family History Father CAD (coronary artery disease) Dementia Mother Cancer Grandmother Cancer Brother Cancer Sister Cancer Denies family history of Diabetes Clotting disorder Hyperlipidemia Psychiatric illness Chronic kidney disease (CKD) Suicide Anesthesia complication Bleeding disorder Family history of premature coronary artery disease Lung disease Hypertension Stroke Social History Smoking and tobacco status: current every day smoker Alcohol intake: never Vitals/I&O/Wt Last Vital Signs Temp 97.6 F 02/18/22 11:45 Pulse 50 L 02/18/22 14:50 Resp 23 H 02/18/22 14:50 BP 171/87 02/18/22 14:50 Pulse Ox 96 02/18/22 14:50 O2 Del Method 02/18/22 11:45 Weight last 48 hrs Weight 72.575 kg Physical Exam Const: COMMON NORMALS: no acute distress and patient oriented x3 HENMT: COMMON NORMALS: normocephalic HEAD & SCALP: normocephalic Eye: COMMON NORMALS: Equal, round and reactive pupils present and EOMs intact bilaterally Resp: COMMON NORMALS: normal respiratory effort, No retractions, No use of accessory muscles and clear to auscultation bilaterally AUSCULTATION: clear to auscultation bilaterally Cardio: COMMON NORMALS: regular rate, regular rhythm, S1 normal heart sound present and S2 normal heart sound present RATE: regular rate RHYTHM: regular rhythm HEART SOUNDS: S1 normal heart sound present and S2 normal heart sound present GI: COMMON NORMALS: Normal to inspection, nondistended, normoactive bowel sounds present, Soft to palpation, non-tender, No hepatosplenomegaly present, no masses and no bruits PALPATION: Yes Soft to palpation and Yes No hepatosplenomegaly present Extremity: COMMON NORMALS: capillary refill normal, no clubbing, cyanosis or edema, no calf tenderness and no pedal edema Neuro: COMMON NORMALS: patient oriented x3, CN's II-XII intact bilaterally, moves all extremities and no focal motor deficits Psych: COMMON NORMALS: mental status grossly normal Data : 02/18/22 12:14 02/18/22 12:14 A&P Assessment and plan (1) Afib: Qualifiers: Atrial fibrillation type: persistent (not longstanding) Qualified Code(s): I48.19 - Other persistent atrial fibrillation (2) Hypertension: (3) Coronary artery disease: (4) Atrial flutter with rapid ventricular response: (5) Dizziness: Plan Dizziness: -etiology uncertain -continue aspirin, statin, metoprolol -continue telemetry monitoring -continue EKG and troponin -orthostatic vitals -neurocheck, aspiration, nih stroke scale -telemertry monitor for afib events -will consider mri for cva eval, posterior circulation -dnr/dni -lovenox for dvt prophylaxis Attestations Medical Necessity Statement*: patient requires hospitalization for dizziness, outpatient with observation Coding Level of Care Code Acute Recreation Aide for [facility] Fwd Diagnoses Afib I48.19 Atrial fibrillation type: persistent (not longstanding) Hypertension I10 Coronary artery disease I25.10 Atrial flutter with rapid ventricular response I48.92 Dizziness R42
--- NOTE | 2022-02-18 16:31 | PC.NURSE ---
report given to NICK Santiago on Med Surg
[2022-02-18 16:36] LABS: Erythrocyte Sedimentation Rate 6 mm/hr (0-15)
[2022-02-18 16:39] LABS: Lactic Sepsis W/Reflex 1.2 mmol/L (0.5-2.2)
[2022-02-18 16:49] LABS: NT Pro B Type Natriuretic Pept 358 pg/mL (0-125); Thyroid Stimulating Hormone 1.03 uIU/mL (0.27-4.20)
--- NOTE | 2022-02-18 20:14 | PC.NURSE ---
Patient refusing all medications at this time. Patient reports preferring to take her home medications. Will not take her metoprolol due to decreased heart rate in the mid 50s presently. She also stated, the only blood thinner I take is a baby aspirin. Discussed importance of medications. Patient verbalized understanding but would like to see doctor before starting anything new or taking anything she is not sure of.
[2022-02-19] VITALS: BP 163/90; PULSE 67; RESP 17; TEMP 37.1; O2SAT 95
[2022-02-19 03:33] LABS: Basophils % 0.6 %; Eosinophils % 0.8 %; Hematocrit 45.1 % (37.0-47.0); Hemoglobin 14.5 g/dL (11.5-15.3); Lymphocytes # 0.6 10^3/uL (0.8-4.8); Lymphocytes % 12.2 %; Mean Corpuscular HGB Conc 32.2 g/dL (30.0-36.0); Mean Corpuscular Volume 87.1 fl (81-99); Mean Platelet Volume 11.9 fL (7.4-10.4); Monocytes # 0.5 10^3/uL (0.2-0.9); Monocytes % 10.2 %; Neutrophils # 3.74 10^3/uL (1.8-7.7); Nucleated Red Blood Cells % 0 %; Platelet Count 126 10^3/cmm (130-400); Red Blood Count 5.18 10^6/uL (4.1-5.3); Red Cell Distribution Width 12.7 % (12.1-15.1); White Blood Count 4.9 10^3/uL (4.0-10.0)
[2022-02-19 03:55] LABS: Alanine Aminotransferase 11 U/L (0-33); Albumin Level 3.8 g/dL (3.5-5.2); Alkaline Phosphatase 62 U/L (35-105); Anion Gap 14.3 (5-19); Aspartate Amino Transferase 14 U/L (0-32); Blood Urea Nitrogen 17 mg/dL (8-23); Calcium 8.8 mg/dL (8.5-10.5); Carbon Dioxide 26 mmol/L (22-29); Chloride 102 mmol/L (98-107); Globulin 2.6 g/dL (1.3-4.6); Glomerular Filtration Rate 54.8 mL/min (90-130); Glucose 103 mg/dL (65-115); Osmolality Calculated 288 mOsm/kg (285-295); Potassium 4.3 mmol/L (3.5-5.1); Sodium 138 mmol/L (136-145); Total Bilirubin 0.6 mg/dL (0.15-1.2); Total Protein 6.4 g/dL (6.6-8.7)
[2022-02-19 03:59] LABS: Creatinine Clr Calc Pharmacy 55.6738
[2022-02-19 04:00] VITALS: BP 164/76; PULSE 68; RESP 17; TEMP 37.3; O2SAT 93
[2022-02-19 06:00] VITALS: PULSE 74
[2022-02-19 07:56] VITALS: BP 168/84; PULSE 67; RESP 14; TEMP 36.7
--- NOTE | 2022-02-19 08:51 | MR_ITS ---
WS: [id number] MRI BRAIN WITHOUT CONTRAST HISTORY: cva COMPARISON: Noncontrast head CT 02/18/2022 TECHNIQUE: Diffusion imaging, multiplanar T1, T2 and FLAIR imaging obtained. No evidence for acute infarct or hemorrhage. Cabrera-white matter differentiation is normal. Mild to moderate small vessel ischemic disease predominantly in the frontal and temporal lobes and th rough the deep white matter. Small vessel ischemic disease in the LEFT eliu. Ventricles and extra-axial spaces are normal. No inferior displacement of cerebellar tonsils. The sella turcica and pituitary gland are unremarkabl e. Dural venous sinuses and campo of Gonzalez demonstrate no abnormality on this unenhanced studies. Paranasal sinuses: Clear. Mastoid air cells: Normal. Calvarium and scalp: Intact. MR/MR head wo con* [id number] IMPRESSION: 1. No acute infarct. No hemorrhage or significant atrophy. 2. Mild to moderate small vessel ischemic disease in the frontal and temporal lobes and also LEFT eliu.
[2022-02-19] MEDS: ibuprofen 200 mg Tablet 400 MG PO (09:18)
[2022-02-19] MEDS: aspirin 325 mg EC Tablet PO (09:18)
[2022-02-19] MEDS: cyanocobalamin 1,000 mcg Tablet 2000 MCG PO (09:18)
[2022-02-19] MEDS: magnesium oxide 400 mg tablet PO (09:18)
[2022-02-19] MEDS: cholecalciferol (vitamin D3) 5,000 unit Tablet 5000 UNIT PO (09:18)
[2022-02-19] MEDS: metoprolol tartrate 25 mg Tablet 6.25 MG PO (09:19)
--- NOTE | 2022-02-19 09:28 | PC.CHAP ---
Pastoral Care Encounter/Spiritual Assessment Type of Contact [] Declined network pricing consultant visit [] Patient/Family/Request visit [] Outpatient visit [] Follow-up visit [] Physician referral [] Code/Alert [x] Routine visit [] Staff referral [] Actively dying [] Patient sleeping [] Family support [] [] Out of room [] Palliative care [] [] Receiving care in room [] Pre-surgical visit [] Trauma [] Long length of stay [] ICU visit [] Other: Relational/Emotional Strength [x] Patient feels connected with others/family/visitors/staff [] Distress [] Loneliness/isolation [] Abandonment Spirituality of Patient [x] Person of Karina [] Attends Mormonism of their Karina x[x] Believes in Prayer [] Reads Bible or Zoroastrianism materials [] There are Spiritual issues to be addressed Support Coordinator Interventions [x] Prayer [x] Active listening [x] Non-anxious presence [x] Spiritual/emotional support [] Crisis/trauma care [] Spiritual counseling [] Bereavement support [] Provided bereavement packet [] Provided Bible/devotional materials [] Provided toy/stuffed animal, coloring book to patient or family member [] Provided Communion [] Anointing/Fisher [] Salvation [x] Completed spiritual assessment [] Other: Impact on Illness or Injury [] Angry [] Fearful [] Anxious [] Often cries [] Exhaustion [] Unable to work [] Unable to attend jew [] Unable to walk/stand [] Unable to read [] Unable to drive [] Unable to eat/drink [] Unable to sleep [] Unable to be with family [] Patient intubated [] Other: Summary Time spent with patient 10 min
--- NOTE | 2022-02-19 11:45 | PM.DCS ---
Discharge Providers Date of Admission: 02/18/22 14:49 Date of Discharge: February 19, 2022 Attending Provider at Admission: Omega Richardson MD Attending Provider at Discharge: Omega Richardson MD Primary Care Provider: LOGAN Wolff Diagnoses at Discharge Discharge Diagnosis (1) Afib: Status: Acute Qualifiers: Atrial fibrillation type: persistent (not longstanding) Qualified Code(s): I48.19 - Other persistent atrial fibrillation Permanent problem details: paroxysmal (2) Hypertension: Status: Chronic (3) Coronary artery disease: Status: Chronic (4) Atrial flutter with rapid ventricular response: Status: Acute (5) Dizziness: Status: Acute Reason for Visit Reason for Visit: n/v Hospital Course Hospital Course Mecca Chavez is a 71 year old female with a past medical history of postprandial hypotension, atrial fibrillation, paroxysmal, not on anticoagulation, history of CAD status post stenting to left circumflex, history of severe two-vessel CAD, hypertension, dyslipidemia, who presents [facility] for 3 episodes of lightheadedness and dizziness.? Patient presented to [facility] for dizziness, no focal neurologic deficits, no recurrent episodes of dizziness, no episodes of atrial fibrillation during hospitalization, cardiac echo showed normal ejection fraction, MRI of the brain no acute findings, carotid artery ultrasound no hemodynamically significant stenosis, no significant evidence of UTI, no significant electrolyte abnormalities, no significant anemia, no significant pneumonia symptoms, no chest pain symptoms, no significant troponin elevation, no significant orthostasis, although she does have significant postprandial hypotension. Etiology of patient's dizziness, in my opinion is highly concerning for recurrent atrial fibrillation episode with possible TIA. Review of patient's history shows that she has had paroxysmal atrial fibrillation in the past, she has had 3 significant episodes, one hospitalization on 07/14/2021 for atrial fibrillation. Patient has been hesitant about anticoagulation, and thus she is on aspirin 325 mg once daily. Here in the hospital at times she would refuse to take her metoprolol and lovenox for dvt prophylaxis. I discussed with patient my concerns of recurrent atrial fibrillation events that are are occurring based upon what she is telling me, and with concerns for embolic phenomenon with possible TIA symptoms. However here in the hospital I have not seen any recurrence of her symptoms or recurrent atrial fibrillation events on telemetry monitoring. However given the nature of paroxysmal atrial fibrillation, sometimes it is quite duplicitous. As patient has had 3 significant atrial fibrillation events that have been documented, 1 recent hospitalization, and with her current symptoms, I strongly recommended for anticoagulation to decrease her risk of CVA, and morbidity and mortality associated. Discussed risks and benefits of anticoagulation, she voiced understanding, all questions answered, however declined for now. She wants to proceed with her aspirin 325 mg once daily. She does have complaint of lightheadedness with metoprolol, and she did have bradycardic episodes heart rates in the low 50s but asymptomatic during hospitalization. I decreased her metoprolol dose to 6.25 mg every 12 hours. Nonetheless I have also discharged her with an event monitor, to be followed up with cardiology in the month. In addition she is to follow-up cardiology in a week. Patient was advised if she were to have any recurrent lightheadedness or dizziness episodes or chest palpitations to go to the emergency room. If she were to have any strokelike symptoms to call 911. Physical Exam Const: COMMON NORMALS: no acute distress and patient oriented x3 Resp: COMMON NORMALS: normal respiratory effort, No retractions, No use of accessory muscles and clear to auscultation bilaterally AUSCULTATION: clear to auscultation bilaterally Cardio: COMMON NORMALS: regular rate, regular rhythm, S1 normal heart sound present and S2 normal heart sound present RATE: regular rate RHYTHM: regular rhythm HEART SOUNDS: S1 normal heart sound present and S2 normal heart sound present GI: COMMON NORMALS: Normal to inspection, nondistended, normoactive bowel sounds present, non-tender and no masses Extremity: COMMON NORMALS: no pedal edema Neuro: COMMON NORMALS: patient oriented x3, CN's II-XII intact bilaterally, moves all extremities and no focal motor deficits Psych: COMMON NORMALS: mental status grossly normal Discharge Data Studies Completed and Pending Completed Studies During Hospitalization Category Date Time Status CT head wo con* [id number] Stat Cat Scan 02/18/22 13:01 Completed XR chest 1V portable [id number] Stat Exams 02/18/22 11:39 Completed MR head wo con* [id number] Routine MRI 02/19/22 08:51 Completed CV carotid duplex BI* [id number] Stat Ultrasound 02/18/22 16:08 Completed Pending at discharge Category Date Time Status CV. echo complete* [id number] Stat Ultrasound 02/18/22 16:08 Taken Radiology Impressions Chest X-Ray 02/18/22 11:39 IMPRESSION: No acute findings. Head CT 02/18/22 13:01 IMPRESSION: No acute intracranial abnormality. Head MRI 02/19/22 08:51 IMPRESSION: 1. No acute infarct. No hemorrhage or significant atrophy. 2. Mild to moderate small vessel ischemic disease in the frontal and temporal lobes and also LEFT eliu. Laboratory Results WBC 4.9 10^3/uL (4.0-10.0) 02/19/22 03:15 RBC 5.18 10^6/uL (4.1-5.3) 02/19/22 03:15 Hgb 14.5 g/dL (11.5-15.3) 02/19/22 03:15 Hct 45.1 % (37.0-47.0) 02/19/22 03:15 MCV 87.1 fl (81-99) 02/19/22 03:15 MCH 28.0 pg (28.0-34.0) 02/19/22 03:15 MCHC 32.2 g/dL (30.0-36.0) 02/19/22 03:15 RDW 12.7 % (12.1-15.1) 02/19/22 03:15 Plt Count 126 10^3/cmm (130-400) L 02/19/22 03:15 MPV 11.9 fL (7.4-10.4) H 02/19/22 03:15 Neut % (Auto) 76.0 % 02/19/22 03:15 Lymph % (Auto) 12.2 % 02/19/22 03:15 [place] % (Auto) 10.2 % 02/19/22 03:15 Eos % (Auto) 0.8 % 02/19/22 03:15 Baso % (Auto) 0.6 % 02/19/22 03:15 Neut # (Auto) 3.74 10^3/uL (1.8-7.7) 02/19/22 03:15 Lymph # (Auto) 0.6 10^3/uL (0.8-4.8) L 02/19/22 03:15 [place] # (Auto) 0.5 10^3/uL (0.2-0.9) 02/19/22 03:15 Eos # (Auto) 0.0 10^3/uL (0.0-0.8) 02/19/22 03:15 Baso # (Auto) 0.0 10^3/uL (0.0-0.1) 02/19/22 03:15 Nucleated RBC % (auto) 0 % 02/19/22 03:15 Nucleated RBCs # 0.0 /100WBC 02/19/22 03:15 ESR 6 mm/hr (0-15) 02/18/22 12:14 Sodium 138 mmol/L (136-145) 02/19/22 03:15 Potassium 4.3 mmol/L (3.5-5.1) 02/19/22 03:15 Chloride 102 mmol/L (98-107) 02/19/22 03:15 Carbon Dioxide 26 mmol/L (22-29) 02/19/22 03:15 Anion Gap 14.3 (5-19) 02/19/22 03:15 BUN 17 mg/dL (8-23) 02/19/22 03:15 Creatinine 1.0 mg/dL (0.5-0.9) H 02/19/22 03:15 GFR Calculation 54.8 mL/min (90-130) L 02/19/22 03:15 Glucose 103 mg/dL (65-115) 02/19/22 03:15 POC Glucose 116 mg/dL (70-110) H 02/18/22 11:47 Calculated Osmolality 288 mOsm/kg (285-295) 02/19/22 03:15 Lactic Acid 1.2 mmol/L (0.5-2.2) 02/18/22 12:14 Calcium 8.8 mg/dL (8.5-10.5) 02/19/22 03:15 Magnesium 2.0 mg/dL (1.7-2.3) 02/18/22 13:28 Total Bilirubin 0.6 mg/dL (0.15-1.2) 02/19/22 03:15 AST 14 U/L (0-32) 02/19/22 03:15 ALT 11 U/L (0-33) 02/19/22 03:15 Alkaline Phosphatase 62 U/L (35-105) 02/19/22 03:15 Troponin T Baseline 9 ng/L (0-10) 02/18/22 12:14 Troponin T 120 Minute 10.48 ng/L (0-10) H 02/18/22 13:58 Delta Troponin T 1.48 ABS# (0-10) 02/18/22 13:58 Troponin T Hi Sens 6Hr 8.90 ng/L (0-10) 02/18/22 18:01 Troponin T Hi Sens 6Hr Delta -0.10 ng/L (0-12) L 02/18/22 18:01 C-Reactive Protein 3.0 mg/L (0.0-4.9) 02/18/22 13:28 NT-Pro-B Natriuret Pep 358 pg/mL (0-125) H 02/18/22 13:28 Total Protein 6.4 g/dL (6.6-8.7) L 02/19/22 03:15 Albumin 3.8 g/dL (3.5-5.2) 02/19/22 03:15 Globulin 2.6 g/dL (1.3-4.6) 02/19/22 03:15 Lipase 28 U/L (13-60) 02/18/22 12:14 Lipase Cancelled 02/18/22 12:14 TSH 1.03 uIU/mL (0.27-4.20) 02/18/22 13:28 Urine Color Yellow (Yellow) 02/18/22 14:37 Urine Appearance Clear (CLEAR) 02/18/22 14:37 Urine pH 6.5 (5-7) 02/18/22 14:37 Ur Specific Chandler 1.020 (1.005-1.030) 02/18/22 14:37 Urine Protein Neg (Negative) 02/18/22 14:37 Urine Glucose (UA) Norm (Normal) 02/18/22 14:37 Urine Ketones 1+ (Negative) H 02/18/22 14:37 Urine Blood 2+ (Negative) H 02/18/22 14:37 Urine Nitrate Negative (Negative) 02/18/22 14:37 Urine Bilirubin Neg (Negative) 02/18/22 14:37 Urine Urobilinogen Neg mg/dL (Negative) 02/18/22 14:37 Ur Leukocyte Esterase Negative (Negative) 02/18/22 14:37 Urine RBC None /hpf (0-2) 02/18/22 14:37 Urine WBC None /hpf (0-5) 02/18/22 14:37 Ur Squamous Epith Cells 0-4 /hpf (0-5) H 02/18/22 14:37 Amorphous Sediment Not Reportable 02/18/22 14:37 Urine Bacteria None /hpf (NONE) 02/18/22 14:37 Vitals Last Vital Signs Temp 98.1 F 02/19/22 07:56 Pulse 67 02/19/22 07:56 Resp 14 02/19/22 07:56 BP 168/84 02/19/22 07:56 Pulse Ox 93 02/19/22 04:00 O2 Del Method 02/19/22 07:56 Discharge Plan Discharge Patient Disposition: Home Condition: Stable Prescriptions: Continued cholecalciferol (vitamin D3) [Vitamin D3] 125 mcg (5,000 unit) tablet 125 mcg PO DAILY Rx Instructions: 3 tabs daily Claritin 10 mg tablet 10 mg PO DAILY PRN (Reason: Allergy Symptoms) cyanocobalamin (vitamin B-12) [Vitamin B-12] 2,000 mcg Tablet Extended Release 2,000 mcg PO DAILY magnesium oxide 400 mg magnesium Tablet 400 mg PO DAILY lisinopril 2.5 mg tablet 2.5 mg PO BEDTIME 30 Days Qty: 30 0RF rosuvastatin 20 mg tablet 20 mg PO BEDTIME Qty: 30 0RF zrpatpb-knaf-dfydm-oreg-capryl 100 mg-150 mg- 50 mg-150 mg Capsule 1 cap PO DAILY aspirin 325 mg Capsule 325 mg PO DAILY Flonase Allergy Relief 50 mcg/actuation spray,suspension 1 spray intranasal BID PRN (Reason: Allergy Symptoms) Rx Instructions: administer into each nostril Changed metoprolol tartrate 25 mg tablet 6.25 mg PO Q12H 30 Days Qty: 0 0RF Discharge Orders: Discharge Order (Routine); Ordered 02/19/22 Ordered By: Omega Richardson Other Ambulatory Orders: MCT/Event Monitor 30 Days (Routine) Timeframe: 1 Day Facility: [facility] - Location: Radiology Ordered By: Omega Richardson Referrals: Charlotte Phan FNP [Primary Care Provider] - 02/25/22 8:30 am Angella Sifuentes FNP [Nurse Practitioner] - 02/26/22 10:30 am Discharge Diet: Cardiac Discharge Activity: Resume usual activity Patient Instructions: Opioid Safety Activity Restrictions/Additional Instructions: - If you have any strokelike symptoms please go to the emergency room -Please follow-up with primary care -APPOINTMENT FOR 30 DAY EVENT MONITOR @ [facility] Tuesday02/23/2022@ 1:45PM Discharge Attestations Time Spent in Discharge Care*: less than 30 min Status at Discharge: Cognitive status at discharge: cognitively intact, Behavioral status at discharge: cooperative, Quality Metrics Clinical Quality Measures [ No reported AMI, CVA or VTE this stay] Coding Level of Care Code Acute Chg FW DC note Diagnoses Afib I48.19 Atrial fibrillation type: persistent (not longstanding) Hypertension I10 Coronary artery disease I25.10 Atrial flutter with rapid ventricular response I48.92 Dizziness R42
[2022-02-19 11:58] VITALS: BP 149/73; PULSE 48; RESP 14; TEMP 36.6; O2SAT 92
--- NOTE | 2022-02-19 13:04 | PC.NURSE ---
discharge instuctions given and explained.pt verb understanding of instructions.discharged via w/c to exit.spouse to drive pt home.
[2022-02-19 13:11] VITALS: BP 149/73; PULSE 48; RESP 14; TEMP 36.6; O2SAT 92
== END 2022-02-19 13:12 | disposition home or self-care (01) ==
LOC: ER 14:23 → MEDSURG 16:34
PROVIDERS: Admitting Provider Family Medicine; Emergency Provider Emergency Medicine; PCP Nurse Practitioner Family; Visit Provider Family Medicine
DX: I48.19 Other persistent atrial fibrillation (principal); I10 Essential (primary) hypertension; I25.10 Atherosclerotic heart disease of native coronary artery without angina pectoris; I48.92 Unspecified atrial flutter; R42 Dizziness and giddiness; Z95.5 Presence of coronary angioplasty implant and graft; E78.5 Hyperlipidemia, unspecified; F17.210 Nicotine dependence, cigarettes, uncomplicated; Z86.16 Personal history of COVID-19; I25.2 Old myocardial infarction
CPT/HCPCS: 36415; 36416; 70450; 70551; 71045; 80053; 81001; 82962; 83605; 83690; 83735; 83880; 84443; 84484; 85025; 85651; 86140; 93005; 93306; 93880; 94664; 96360; 96361; 99285; G0378; J7040

== ENCOUNTER 2022-02-23 13:51 | Emergency (ER) | payer MEDICARE, SELFPAY ==
[2022-02-23 14:00] VITALS: BP 133/92; PULSE 85; RESP 20; TEMP 36.4; O2SAT 95; BMI 23.6
--- NOTE | 2022-02-23 14:43 | ECG_ITS ---
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 Measurements Intervals [place] Rate: 83 P: 65 IA: 147 QRS: -11 QRSD: 96 T: 16 QT: 368 QTc: 434 Interpretive Statements SINUS RHYTHM POSSIBLE LEFT ATRIAL ENLARGEMENT [-0.1mV P-WAVE IN V1/V2] INCOMPLETE RIGHT BUNDLE BRANCH BLOCK [90+ ms QRS DURATION, TERMINAL R IN V1/V2, 40+ ms S IN I/aVL/V4/V5/V6] POSSIBLE LEFT VENTRICULAR HYPERTROPHY [VOLTAGE CRITERIA PLUS LAE OR QRS WIDENING] POSSIBLE SEPTAL MYOCARDIAL INFARCTION , PROBABLY OLD [30 ms Q WAVE IN V1/V2] MODERATE T-WAVE ABNORMALITY, CONSIDER LATERAL ISCHEMIA [-0.1+ mV T-WAVE IN I/aVL/V5/V6] Compared to ECG 02/18/2022 16:37:13 Incomplete right bundle-branch block now present Sinus bradycardia no longer present T-wave abnormality still present Possible ischemia still present Electronically Signed On 02-24-2022 8:25:49 CDT by Alex Montana M.D. [email or web address]
--- NOTE | 2022-02-23 14:47 | XRR_ITS ---
PROCEDURE INFORMATION: Exam: XR Chest Exam date and time: 02/23/2022 4:02 PM Age: 71 years old Clinical indication: Cardiovascular condition or disease; Atrial fibrillation; Additional info: Afib TECHNIQUE: Imaging protocol: Radiologic exam of the chest. Views: 1 view. COMPARISON: CR XR chest 1V portable [id number] 02/18/2022 12:30 PM FINDINGS: Lungs: Unremarkable. No consolidation. Pleural spaces: Unremarkable. No pleural effusion. No pneumothorax. Heart/Mediastinum: Unremarkable. No cardiomegaly. Vasculature: Ascending thoracic aorta appears prominent. Bones/joints: Unremarkable. XR/XR chest 1V portable [id number] IMPRESSION: Ascending thoracic aorta appears prominent.
--- NOTE | 2022-02-23 16:01 | ED_ITS ---
HPI - General Adult General: Chief complaint: Nausea/Vomiting/Diarrhea Stated complaint: N/V Time Seen by Provider: 02/23/22 15:59 History of Present Illness: Patient is a 71-year-old female with a history of peripheral new hypertension, atrial fibrillation not on anticoagulation, CAD with stent x1, hypertension, hyperlipidemia presenting to the emergency room with nausea vomiting, lightheadedness and diarrhea. Patient was recently seen and admitted to the hospital on 02/18/2022 and was discharged home 02/19. After discharge, patient reports feeling symptomatically improved from lightheadedness standpoint for the last 4 days. However earlier today, patient noted that she had had 4-5 episodes of diarrhea at home. Patient reports liquid to but denies any melena/hematochezia. Patient denies any abdominal pain but reports nausea and vomiting. Patient also reports sensation of lightheadedness. Patient denies any associate chest pain or shortness of breath. Patient denies any LOC or fall or injuries. Denies any other focal complaints at this time. Onset:earlier today Duration: ongoing/intermittent Location:home Severity:moderate Associated symptoms: Reports nausea and vomiting; Deny chest pain, dyspnea, rash or palpitations Review of Systems Const: Reports: other (+light-headedness); Denies: fever(s) or chills Eyes: Denies: change in vision ENMT: Denies: mouth pain Card: Denies: chest pain or palpitations Resp: Denies: dyspnea or non-productive cough GI: Reports: nausea, vomiting and diarrhea; Denies: abdominal pain : Denies: dysuria Musc: Denies: extremity pain Skin/Breast: Denies: rash or new lesions Neuro: Denies: weakness in extremities Psych: Reports: other (Normal mood) Fuentes/Lymph: Denies: easy bruising PFS ED PFSH: Medical History Afib paroxysmal Coronary artery disease COVID-19 (~10/2020) Dyslipidemia Heart valve disease History of echocardiogram 06/2019 EF 50%, lateral wall hypokinesis, mild thickening of mitral valve and regurgitation of tricuspid (moderate) and pulmonary (mild) valves, normal pulmonary artery pressures History of Holter monitoring 06/2019 - HR range 35-92 with mean 53 bmp, bradycardia up to ~8 hrs long, supraventricular activity was 411 beats out of 150,745 analyzes QRS complexes Hypertension ST elevation CO (STEMI) Status post drug-eluting stent to circumflex. Surgical History H/O tubal ligation H/O: hysterectomy History of cardiac catheterization 06/2019 - 100% proximal circumflex lesion stented, 20% RCA, no LM or LAD obstruction noted History of coronary artery stent placement 06/2019 - circumflex, angioplasty and drug-eluting stent Hx of appendectomy Family History Father CAD (coronary artery disease) Dementia Mother Cancer Grandmother Cancer Brother Cancer Sister Cancer Denies family history of Diabetes Clotting disorder Hyperlipidemia Psychiatric illness Chronic kidney disease (CKD) Suicide Anesthesia complication Bleeding disorder Family history of premature coronary artery disease Lung disease Hypertension Stroke Social History Smoking and tobacco status: current every day smoker Alcohol intake: never Physical Exam Const: COMMON NORMALS: alert HENMT: COMMON NORMALS: atraumatic HEAD & SCALP: atraumatic MOUTH: moist mucous membranes abnormal Eye: COMMON NORMALS: EOMs intact bilaterally and conjunctivae normal CONJUNCTIVA: Yes conjunctivae normal Neck/C-Spine: COMMON NORMALS: full ROM and supple Resp: COMMON NORMALS: normal respiratory effort and clear to auscultation bilaterally AUSCULTATION: clear to auscultation bilaterally Cardio: COMMON NORMALS: regular rate RATE: regular rate OTHER: 2+ radial pulses b/l GI: COMMON NORMALS: Soft to palpation and non-tender PALPATION: Yes Soft to palpation OTHER: No focal TTP. NO guarding rebound, guarding, rigidity. No CVA tenderness to percussion. Neg Blanchard/Neg McBurney's point tenderness, no suprabupic tenderness to palpation. Extremity: COMMON NORMALS: full ROM Neuro: SENSORIUM/ORIENTATION: Yes alert MOTOR EXAM: No Abnormal motor strength present and Other motor observations present (no focal motor deficits) OTHER: Mental status? Awake, alert, and oriented to self, year, month, location, and situation.? Following simple axial and appendicular commands.? Has appropriate fund of knowledge, comprehension, and insight.? Able to recall and understands pertinent aspects of medical history and current treatment status.? ? Language? Speech is fluent without word-finding difficulties.? Intact naming, expression, bilingual medical receptionist, and repetition.? ? Cranial nerves? 2,3,4,6: PERRL, EOMI with no nystagmus. 5: Intact sensation to light touch, symmetric? 7: Smile symmetrical, no facial droop.? 8: Hearing grossly intact.? 9,10: Normal palate movement.? 11: Normal strength in trapezius bilaterally 12: Tongue protrudes midline.? ? Motor examination? Normal bulk & tone. Strength as follows (R/L): Delts (5/5), Biceps (5/5), Triceps (5/5), Wrist ext (5/5), hip flexors (5/5), plantarflexors (5/5), dorsiflexors (5/5). ? Sensation? Light Touch: Grossly intact and equal in upper and lower extremities bilaterally? Distal joint position sense intact ? Coordination? Ixxvzu-rx-qunu-finger movements intact without dysmetria or past-pointing.? Rapid fingertaps: preserved amplitude without decriment.? No tremor, myoclonus or truncal ataxia.? ? Gait/stance? Steady, normal narrow base gait with appropriate arm swing and turning.? Tandem gait without hesitation or loss of balance. Romberg: Negative.? Psych: COMMON NORMALS: speech normal SPEECH: Yes normal speech MOOD & AFFECT: Yes euthymic mood Course Vital Signs: Vital signs: Vital Signs Temperature 97.5 F L 02/23/22 14:00 Pulse Rate 57 L 02/23/22 21:00 Respiratory Rate 16 02/23/22 21:00 Blood Pressure 161/90 02/23/22 21:00 Pulse Oximetry 96 02/23/22 21:00 Oxygen Delivery Me thod 02/23/22 18:00 [facility] - General Adult Medical Decision Making Patient is a 71-year-old female with a history of hypertension, atrial fibrillation not on anticoagulation, CAD with stent x1, hypertension, hyperlipidemia presenting to the emergency room with nausea vomiting, lightheadedness and diarrhea. Patient was recently admitted to the hospital and evaluated for similar lightheadedness. Patient tells me that she has dry mucous membrane. Patient is mildly hemoconcentrated 16.1 with a creatinine 1.2. Patient received IVF in the emergency room reports feeling symptomatically improved. X-ray chest appears to be clear. The ascending aorta appears to be mildly enlarged. CT is negative for any signs of dissection. Patient is noted to have 4.3 cm aortic aneurysm. Incidental findings of aortic aneurysm discussed extensively with patient. Patient received a copy of the CT report with the documented findings. Patient is instructed to follow up urgently with specialists. Troponin within normal limit. EKG is nonischemic. This present time it is unclear what the cause of patient's lightheadedness. Patient is due to his set up for Holter tomorrow. I instructed the patient to wear the Holter. In addition, patient is concerned about prednisone eyedrops as a cause of her symptoms as patient has lightheadedness after using the prednisone eyedrops 20 minutes after. I have instructed patient to stop using the prednisone eyedrops. In addition, patient is instructed to drink plenty of water for hydration. I have given patient follow up with our foster care case manager to be seen by our outpatient Cardiology for recurrent light-headedness. Patient aware of a call from our foster care case manager to schedule for appointment(s) and verbalizes understanding of the importance of following up. Disposition: Discharge. Patient counseled regarding diagnostic impression, treatment plan. Patient given ED strict return precautions to return for continuation, worsening, or development of new symptoms. Instructed to f/u w/ PCP regarding symptoms today. Patient verbalized understanding. Lab Data : 02/23/22 17:10 02/23/22 17:10 Radiology Impressions Chest X-Ray 02/23/22 14:47 IMPRESSION: Ascending thoracic aorta appears prominent. Chest/Abdomen/Pelvis CTA 02/23/22 16:50 IMPRESSION: No acute arterial findings. Mild dilation of ascending aorta to 4.3 cm and of distal abdominal aorta to 2.7 cm Laboratory Results WBC 8.8 10^3/uL (4.0-10.0) 02/23/22 17:10 RBC 5.73 10^6/uL (4.1-5.3) H 02/23/22 17:10 Hgb 16.1 g/dL (11.5-15.3) H 02/23/22 17:10 Hct 48.9 % (37.0-47.0) H 02/23/22 17:10 MCV 85.3 fl (81-99) 02/23/22 17:10 MCH 28.1 pg (28.0-34.0) 02/23/22 17:10 MCHC 32.9 g/dL (30.0-36.0) 02/23/22 17:10 RDW 12.8 % (12.1-15.1) 02/23/22 17:10 Plt Count 152 10^3/cmm (130-400) 02/23/22 17:10 MPV 12.3 fL (7.4-10.4) H 02/23/22 17:10 Neut % (Auto) 80.6 % 02/23/22 17:10 Lymph % (Auto) 8.8 % 02/23/22 17:10 Robertson % (Auto) 9.1 % 02/23/22 17:10 Eos % (Auto) 0.5 % 02/23/22 17:10 Baso % (Auto) 0.5 % 02/23/22 17:10 Neut # (Auto) 7.10 10^3/uL (1.8-7.7) 02/23/22 17:10 Lymph # (Auto) 0.8 10^3/uL (0.8-4.8) 02/23/22 17:10 Robertson # (Auto) 0.8 10^3/uL (0.2-0.9) 02/23/22 17:10 Eos # (Auto) 0.0 10^3/uL (0.0-0.8) 02/23/22 17:10 Baso # (Auto) 0.0 10^3/uL (0.0-0.1) 02/23/22 17:10 Nucleated RBC % (auto) 0 % 02/23/22 17:10 Nucleated RBCs # 0.0 /100WBC 02/23/22 17:10 Sodium 139 mmol/L (136-145) 02/23/22 17:10 Potassium 4.3 mmol/L (3.5-5.1) 02/23/22 17:10 Chloride 101 mmol/L (98-107) 02/23/22 17:10 Carbon Dioxide 23 mmol/L (22-29) 02/23/22 17:10 Anion Gap 19.3 (5-19) H 02/23/22 17:10 BUN 20 mg/dL (8-23) 02/23/22 17:10 Creatinine 1.2 mg/dL (0.5-0.9) H 02/23/22 17:10 GFR Calculation 44.4 mL/min (90-130) L 02/23/22 17:10 Glucose 133 mg/dL (65-115) H 02/23/22 17:10 Calculated Osmolality 293 mOsm/kg (285-295) 02/23/22 17:10 Calcium 9.4 mg/dL (8.5-10.5) 02/23/22 17:10 Total Bilirubin 0.7 mg/dL (0.15-1.2) 02/23/22 17:10 AST 19 U/L (0-32) 02/23/22 17:10 ALT 16 U/L (0-33) 02/23/22 17:10 Alkaline Phosphatase 68 U/L (35-105) 02/23/22 17:10 Troponin T Gen 5 ng/L 10 ng/L (0-10) 02/23/22 17:10 Total Protein 7.4 g/dL (6.6-8.7) 02/23/22 17:10 Albumin 4.1 g/dL (3.5-5.2) 02/23/22 17:10 Globulin 3.3 g/dL (1.3-4.6) 02/23/22 17:10 Lipase 36 U/L (13-60) 02/23/22 17:10 Urine Color Yellow (Yellow) 02/23/22 19:49 Urine Appearance Cloudy (CLEAR) A 02/23/22 19:49 Urine pH 5 (5-7) 02/23/22 19:49 Ur Specific [place] 1.005 (1.005-1.030) 02/23/22 19:49 Urine Protein Trace (Negative) 02/23/22 19:49 Urine Glucose (UA) Norm (Normal) 02/23/22 19:49 Urine Ketones Negative (Negative) 02/23/22 19:49 Urine Blood 2+ (Negative) H 02/23/22 19:49 Urine Nitrate Negative (Negative) 02/23/22 19:49 Urine Bilirubin Neg (Negative) 02/23/22 19:49 Urine Urobilinogen Norm mg/dL (Negative) 02/23/22 19:49 Ur Leukocyte Esterase Negative (Negative) 02/23/22 19:49 Urine RBC 40-50 /hpf (0-2) H 02/23/22 19:49 Urine WBC 0-4 /hpf (0-5) H 02/23/22 19:49 Ur Squamous Epith Cells Too numerous to cnt /hpf (0-5) H 02/23/22 19:49 Amorphous Sediment Not Reportable 02/23/22 19:49 Urine Bacteria 1+ /hpf (NONE) H 02/23/22 19:49 Imaging Data Other Imaging: Radiologist's impression: [address] [address] [address] Scan Report Signed Patient: Mecca Chavez Unit #: [id number] : 1950 Age/Sex: 71 / F ADM Date: 02/23/22 Loc: ER Room/Bed: Attending Dr: Ordering Provider/Ordering MD: Bhavik Saldana MD Date of Service: 02/23/22 Procedure(s): CT angio chest abdomen pelvis Accession Number(s): [id number] Report Number: [id number] PROCEDURE INFORMATION: Exam: CTA Chest Without And With Contrast CTA Abdomen and Pelvis With Contrast Exam date and time: 02/23/2022 7:39 PM Age: 71 years old Clinical indication: Other: Pain in mid abdomen; Additional info: Eval for dissection TECHNIQUE: Imaging protocol: Computed tomographic angiography of the chest without and with contrast. Computed tomographic angiography of the abdomen and pelvis with contrast. 3D rendering (Not supervised by radiologist): MIP and/or 3D reconstructed images were created by the technologist. Radiation optimization: All CT scans at this facility use at least one of these dose optimization techniques: automated exposure control; mA and/or kV adjustment per patient size (includes targeted exams where dose is matched to clinical indication); or iterative reconstruction. Contrast material: OMNIPAQUE 350; Contrast volume: 95 ml; Contrast route: INTRAVENOUS (IV);? COMPARISON: CR XR chest 1V portable [id number] 02/23/2022 4:02 PM RADIATION DOSE METRICS: Total DLP (mGy-cm): 840.64 FINDINGS: VASCULATURE: Pulmonary arteries: Normal. No pulmonary emboli. Aorta: Distal abdominal aorta dilates mildly to 2.7 cm. Ascending aorta is mildly dilated at 4.3 cm. No acute findings. Celiac trunk and mesenteric arteries: No occlusion or significant stenosis. Renal arteries: No occlusion or significant stenosis. Right iliac arteries: No occlusion or significant stenosis. Left iliac arteries: No occlusion or significant stenosis. CHEST: Lungs: Calcified pulmonary granulomatous change. Pleural spaces: Unremarkable. No pneumothorax. No pleural effusion. Heart: Coronary calcifications are noted. Coronary stent noted. ABDOMEN AND PELVIS: Liver: No mass. Gallbladder and bile ducts: Unremarkable. No calcified stones. No ductal dilation. Pancreas: Unremarkable. No mass. No ductal dilation. Spleen: Unremarkable. No splenomegaly. Adrenal glands: Unremarkable. No mass. Kidneys and ureters: Unremarkable. No solid mass. No hydronephrosis. Stomach and bowel: Unremarkable. No obstruction. No mucosal thickening. Appendix: No evidence of appendicitis. Intraperitoneal space: Unremarkable. No free air. No significant fluid collection. Urinary bladder: Unremarkable. No mass. Reproductive: Hysterectomy. Lymph nodes: Calcified granulomatous changes are noted in mediastinal and hilar lymph nodes. Bones/joints: Unremarkable. No acute fracture. Soft tissues: Unremarkable. CT/CT angio chest abdomen pelvis IMPRESSION: ? No acute arterial findings.? Mild dilation of ascending aorta to 4.3 cm and of distal abdominal aorta to 2.7 cm ? Dictated By: Tha Deluna MD Signed By: Tha Deluna MD Signed Date/Time: 02/23/222051 DD/ [address] [address] XRay Report Signed Patient: Mecca Chavez Unit #: [id number] : 1950 Age/Sex: 71 / F ADM Date: 02/23/22 Loc: ER Room/Bed: Attending Dr: Ordering Provider/Ordering MD: Donovan Lugo DO Date of Service: 02/23/22 Procedure(s): XR chest 1V portable [id number] Accession Number(s): [id number] Report Number: [id number] PROCEDURE INFORMATION: Exam: XR Chest Exam date and time: 02/23/2022 4:02 PM Age: 71 years old Clinical indication: Cardiovascular condition or disease; Atrial fibrillation; Additional info: Afib TECHNIQUE: Imaging protocol: Radiologic exam of the chest. Views: 1 view. COMPARISON: CR XR chest 1V portable [id number] 02/18/2022 12:30 PM FINDINGS: Lungs: Unremarkable. No consolidation. Pleural spaces: Unremarkable. No pleural effusion. No pneumothorax. Heart/Mediastinum: Unremarkable. No cardiomegaly. Vasculature: Ascending thoracic aorta appears prominent. Bones/joints: Unremarkable. XR/XR chest 1V portable [id number] IMPRESSION: Ascending thoracic aorta appears prominent. ? Dictated By: Ever Briggs MD Signed By: Ever Briggs MD Signed Date/Time: 02/23/221641 DD/ 160 Discharge Plan Discharge Patient Disposition: Home Clinical Impression: Light headedness, Diarrhea Condition: Stable Prescriptions: No Action cholecalciferol (vitamin D3) [Vitamin D3] 125 mcg (5,000 unit) tablet 125 mcg PO DAILY Rx Instructions: 3 tabs daily Claritin 10 mg tablet 10 mg PO DAILY PRN (Reason: Allergy Symptoms) cyanocobalamin (vitamin B-12) [Vitamin B-12] 2,000 mcg Tablet Extended Release 2,000 mcg PO DAILY magnesium oxide 400 mg magnesium Tablet 400 mg PO DAILY lisinopril 2.5 mg tablet 2.5 mg PO BEDTIME 30 Days Qty: 30 0RF rosuvastatin 20 mg tablet 20 mg PO BEDTIME Qty: 30 0RF ksqzrmz-wkfm-pecfb-oreg-capryl 100 mg-150 mg- 50 mg-150 mg Capsule 1 cap PO DAILY aspirin 325 mg Capsule 325 mg PO DAILY Flonase Allergy Relief 50 mcg/actuation spray,suspension 1 spray intranasal BID PRN (Reason: Allergy Symptoms) Rx Instructions: administer into each nostril metoprolol tartrate 25 mg tablet 6.25 mg PO Q12H 30 Days Qty: 0 0RF Discharge Orders: Discharge ED (Routine); Ordered 02/23/22 Ordered By: Bhavik Saldana Referrals: Charlotte Phan FNP [Primary Care Provider] - Discharge Diet: Advance as tolerated Discharge Activity: Increase activity as tolerated Activity Restrictions/Additional Instructions: Please come back to the emergency room for any more breakthrough episodes of near passing out. Come back if any weakness in her arms, drooling, difficulty speaking, any neurological symptoms, chest pain/shortness of breath/palpitation or any new or concerning issues. Please do not swim, bathe, operate heavy machinery or drive a vehicle unattended. Please wear your Holter. Please drink plenty water for you to get diarrhea. [place] to the emergency room if any new concerning complaints Coding Level of Care Code ED Bilingual Hr Generalist for Alicia Sanabria Exam Comprehensive
--- NOTE | 2022-02-23 16:50 | CTR_ITS ---
PROCEDURE INFORMATION: Exam: CTA Chest Without And With Contrast CTA Abdomen and Pelvis With Contrast Exam date and time: 02/23/2022 7:39 PM Age: 71 years old Clinical indication: Other: Pain in mid abdomen; Additional info: Eval for dissection TECHNIQUE: Imaging protocol: Computed tomographic angiography of the chest without and with contrast. Computed tomographic angiography of the abdomen and pelvis with contrast. 3D rendering (Not supervised by radiologist): MIP and/or 3D reconstructed images were created by the technologist. Radiation optimization: All CT scans at this facility use at least one of these dose optimization techniques: automated exposure control; mA and/or kV adjustment per patient size (includes targeted exams where dose is matched to clinical indication); or iterative reconstruction. Contrast material: OMNIPAQUE 350; Contrast volume: 95 ml; Contrast route: INTRAVENOUS (IV); COMPARISON: CR XR chest 1V portable [id number] 02/23/2022 4:02 PM RADIATION DOSE METRICS: Total DLP (mGy-cm): 840.64 FINDINGS: VASCULATURE: Pulmonary arteries: Normal. No pulmonary emboli. Aorta: Distal abdominal aorta dilates mildly to 2.7 cm. Ascending aorta is mildly dilated at 4.3 cm. No acute findings. Celiac trunk and mesenteric arteries: No occlusion or significant stenosis. Renal arteries: No occlusion or significant stenosis. Right iliac arteries: No occlusion or significant stenosis. Left iliac arteries: No occlusion or significant stenosis. CHEST: Lungs: Calcified pulmonary granulomatous change. Pleural spaces: Unremarkable. No pneumothorax. No pleural effusion. Heart: Coronary calcifications are noted. Coronary stent noted. ABDOMEN AND PELVIS: Liver: No mass. Gallbladder and bile ducts: Unremarkable. No calcified stones. No ductal dilation. Pancreas: Unremarkable. No mass. No ductal dilation. Spleen: Unremarkable. No splenomegaly. Adrenal glands: Unremarkable. No mass. Kidneys and ureters: Unremarkable. No solid mass. No hydronephrosis. Stomach and bowel: Unremarkable. No obstruction. No mucosal thickening. Appendix: No evidence of appendicitis. Intraperitoneal space: Unremarkable. No free air. No significant fluid collection. Urinary bladder: Unremarkable. No mass. Reproductive: Hysterectomy. Lymph nodes: Calcified granulomatous changes are noted in mediastinal and hilar lymph nodes. Bones/joints: Unremarkable. No acute fracture. Soft tissues: Unremarkable. CT/CT angio chest abdomen pelvis IMPRESSION: No acute arterial findings. Mild dilation of ascending aorta to 4.3 cm and of distal abdominal aorta to 2.7 cm
[2022-02-23 17:25] LABS: Basophils % 0.5 %; Eosinophils % 0.5 %; Hematocrit 48.9 % (37.0-47.0); Hemoglobin 16.1 g/dL (11.5-15.3); Lymphocytes # 0.8 10^3/uL (0.8-4.8); Lymphocytes % 8.8 %; Mean Corpuscular HGB Conc 32.9 g/dL (30.0-36.0); Mean Corpuscular Hemoglobin 28.1 pg (28.0-34.0); Mean Corpuscular Volume 85.3 fl (81-99); Mean Platelet Volume 12.3 fL (7.4-10.4); Monocytes # 0.8 10^3/uL (0.2-0.9); Monocytes % 9.1 %; Neutrophils % 80.6 %; Nucleated Red Blood Cells % 0 %; Platelet Count 152 10^3/cmm (130-400); Red Blood Count 5.73 10^6/uL (4.1-5.3); Red Cell Distribution Width 12.8 % (12.1-15.1); White Blood Count 8.8 10^3/uL (4.0-10.0)
[2022-02-23] MEDS: sodium chloride 0.9% 1,000 ML 999 ML IV (17:26)
[2022-02-23 17:38] VITALS: BP 157/84; PULSE 60; RESP 15; O2SAT 97
[2022-02-23 17:52] LABS: Troponin T (5th) Once 10 ng/L (0-10)
[2022-02-23 17:54] LABS: Alanine Aminotransferase 16 U/L (0-33); Albumin Level 4.1 g/dL (3.5-5.2); Alkaline Phosphatase 68 U/L (35-105); Aspartate Amino Transferase 19 U/L (0-32); Blood Urea Nitrogen 20 mg/dL (8-23); Calcium 9.4 mg/dL (8.5-10.5); Carbon Dioxide 23 mmol/L (22-29); Chloride 101 mmol/L (98-107); Globulin 3.3 g/dL (1.3-4.6); Glomerular Filtration Rate 44.4 mL/min (90-130); Glucose 133 mg/dL (65-115); Lipase 36 U/L (13-60); Osmolality Calculated 293 mOsm/kg (285-295); Sodium 139 mmol/L (136-145); Total Bilirubin 0.7 mg/dL (0.15-1.2); Total Protein 7.4 g/dL (6.6-8.7)
[2022-02-23 18:00] VITALS: BP 150/85; PULSE 58; RESP 15; O2SAT 95
[2022-02-23 18:00] LABS: Anion Gap 19.3 (5-19); Potassium 4.3 mmol/L (3.5-5.1)
[2022-02-23 19:00] VITALS: BP 128/75; PULSE 56; RESP 18; O2SAT 93
[2022-02-23] MEDS: iohexol 350 mg/mL 100 mL Btl IV (19:16)
[2022-02-23 20:10] LABS: Add Urine Culture? No; Add Urine Microscopic? YES; Bacteria Urine 1+ /hpf; Bilirubin Urine Neg (Negative); Blood Urine 2+ (Negative); Glucose Urine UA Norm (Normal); Ketones Urine Negative (Negative); Leukocyte Esterase Urine Negative (Negative); Nitrate Urine Negative (Negative); Protein Urine Trace (Negative); RBC Urine 40-50 /hpf (0-2); Specific Gravity, Urine 1.005 (1.005-1.030); Squamous Epithelial Cell Urine TOO NUMEROUS TO CNT /hpf (0-5); Urine Appearance Cloudy (CLEAR); Urine Color Yellow (Yellow); Urobilinogen Urine Norm (Negative); WBC Urine 0-4 /hpf (0-5); pH Urine 5 (5-7)
[2022-02-23 21:00] VITALS: BP 161/90; PULSE 57; RESP 16; O2SAT 96
[2022-02-23 22:26] VITALS: BP 149/74; PULSE 56; RESP 16; O2SAT 95
--- NOTE | 2022-02-24 09:46 | DCPLANNER ---
Addendum entered by Ruthy Samuel 03/04/22 11:32: Patient had a follow up appointment scheduled with heart care - patient did not attend appointment. Original Note: manager diesel had message to schedule a follow up appointment for patient with cardiology. manager diesel sent patients information to the front office staff at [facility]. Patients information will be printed and reviewed. Clinic will call patient with appointment information.
== END 2022-02-23 22:28 | disposition home or self-care (01) ==
PROVIDERS: Family Medicine; Emergency Provider Emergency Medicine; PCP Nurse Practitioner Family
DX: R42 Dizziness and giddiness (principal); R19.7 Diarrhea, unspecified; Z79.82 Long term (current) use of aspirin; F17.210 Nicotine dependence, cigarettes, uncomplicated; I25.10 Atherosclerotic heart disease of native coronary artery without angina pectoris; E78.5 Hyperlipidemia, unspecified; I25.2 Old myocardial infarction
CPT/HCPCS: 71045; 71275; 74174; 80053; 81001; 83690; 84484; 85025; 93005; 99285; J7030; Q9967

== ENCOUNTER 2022-10-03 11:29 | Emergency (ER) | payer MEDICARE, SELFPAY ==
[2022-10-03] VITALS (7 sets, daily range): BP systolic 127–204; BP diastolic 86–109; PULSE 55–71; RESP 16–23; TEMP 36.8; O2SAT 95–97; BMI 23.4
--- NOTE | 2022-10-03 11:31 | XRR_ITS ---
PROCEDURE INFORMATION: Exam: XR Chest Exam date and time: 10/03/2022 11:42 AM Age: 71 years old Clinical indication: Pain; Chest pressure; Patient HX: PT stated no bra, did not want a repeat done; Additional info: Chest pain TECHNIQUE: Imaging protocol: Radiologic exam of the chest. Views: 1 view. COMPARISON: CR XR chest 2V* [id number] 09/27/2022 11:07 AM FINDINGS: Lungs: Unremarkable. No consolidation. Pleural spaces: Unremarkable. No pleural effusion. No pneumothorax. Heart/Mediastinum: Unremarkable. No cardiomegaly. Bones/joints: Unremarkable for age. XR/XR chest 1V portable [id number] IMPRESSION: Negative chest
--- NOTE | 2022-10-03 11:41 | ECG_ITS ---
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 Measurements Intervals [place] Rate: 66 P: 37 MS: 170 QRS: -34 QRSD: 99 T: 232 QT: 391 QTc: 411 Interpretive Statements SINUS RHYTHM LEFT AXIS DEVIATION [QRS AXIS < -30] INCOMPLETE RIGHT BUNDLE BRANCH BLOCK [90+ ms QRS DURATION, TERMINAL R IN V1/V2, 40+ ms S IN I/aVL/V4/V5/V6] LEFT VENTRICULAR HYPERTROPHY AND ST-T CHANGE [VOLTAGE CRITERIA PLUS ST/T ABNORMALITY] POSSIBLE SEPTAL MYOCARDIAL INFARCTION , PROBABLY OLD [30 ms Q WAVE IN V1/V2] INTERPRETATION BASED ON A DEFAULT AGE OF 40 YEARS Compared to ECG 02/23/2022 14:45:48 Left-axis deviation now present Possible ischemia no longer present Myocardial infarct finding still present Electronically Signed On 10-03-2022 19:25:58 CDT by Alex Montana M.D. [id number]
--- NOTE | 2022-10-03 11:56 | ED_ITS ---
HPI - Chest Pain General: Chief Complaint: Chest Pain Stated Complaint: SOB, Chest pain Time Seen by Provider: 10/03/22 11:31 History of Present Illness: Presents to the ER with complaints of shortness of breath times last 2 weeks. This been getting worse. Patient started having some epigastric pain today that radiated up into her chest. Patient's blood pressure is more elevated than normal. 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 Onset (ago): day(s) (Chest pain started today shortness of breath started about 2 weeks ago) Timing of current episode: constant and now resolved Prior episodes: Yes Onset: during rest Pain location: epigastric Severity: mild Quality: aching Relieving factors: nothing Exacerbating factors: nothing Associated symptoms: Reports dyspnea; Deny abdominal pain, fever(s), palpitations or vomiting Review of Systems General: Reports: 10 or more systems reviewed and unremarkable except in HPI and below Const: Denies: fever(s) or chills Eyes: Denies: change in vision or photophobia ENMT: Denies: throat pain or odynophagia Card: Reports: chest pain; Denies: palpitations or irregular heart rhythm Resp: Reports: dyspnea; Denies: productive cough or non-productive cough GI: Denies: abdominal pain or vomiting : Denies: flank pain or dysuria PFSH ED PFSH: Medical History Afib paroxysmal Coronary artery disease COVID-19 (~10/2020) Dyslipidemia Heart valve disease History of echocardiogram 06/2019 EF 50%, lateral wall hypokinesis, mild thickening of mitral valve and regurgitation of tricuspid (moderate) and pulmonary (mild) valves, normal pulmonary artery pressures History of Holter monitoring 06/2019 - HR range 35-92 with mean 53 bmp, bradycardia up to ~8 hrs long, supraventricular activity was 411 beats out of 150,745 analyzes QRS complexes Hypertension ST elevation ND (STEMI) Status post drug-eluting stent to circumflex. Surgical History H/O tubal ligation H/O: hysterectomy History of cardiac catheterization 06/2019 - 100% proximal circumflex lesion stented, 20% RCA, no LM or LAD obstruction noted History of coronary artery stent placement 06/2019 - circumflex, angioplasty and drug-eluting stent Hx of appendectomy Family History Father CAD (coronary artery disease) Dementia Mother Cancer Grandmother Cancer Brother Cancer Sister Cancer Denies family history of Diabetes Clotting disorder Hyperlipidemia Psychiatric illness Chronic kidney disease (CKD) Suicide Anesthesia complication Bleeding disorder Family history of premature coronary artery disease Lung disease Hypertension Stroke Social History Smoking and tobacco status: current every day smoker Alcohol intake: never Substance/Drug Use: never Physical Exam Const: COMMON NORMALS: no acute distress, average body habitus, patient oriented x3, no limitations, healthy appearing, alert and well nourished HENMT: COMMON NORMALS: normocephalic, atraumatic, hearing grossly normal bilaterally, Normal external nose present and moist oral mucous membranes HEAD & SCALP: normocephalic and atraumatic NOSE: Normal external nose present Neck/C-Spine: COMMON NORMALS: full ROM, no lymphadenopathy, supple, no meningeal signs, no JVD and Thyroid normal THYROID: Thyroid normal Lymph: LYMPHATIC: no lymphadenopathy noted Chest: COMMONS NORMALS: normal inspection of the chest and normal palpation of entire chest wall Resp: COMMON NORMALS: normal respiratory effort, No retractions, No use of accessory muscles and clear to auscultation bilaterally AUSCULTATION: clear to auscultation bilaterally Cardio: COMMON NORMALS: no JVD, regular rate, regular rhythm, S1 normal heart sound present, S2 normal heart sound present, No gallops present (Cardio), No clicks present (Cardio) and No murmurs present (Cardio) RATE: regular rate RHYTHM: regular rhythm HEART SOUNDS: S1 normal heart sound present and S2 normal heart sound present GI: COMMON NORMALS: Normal to inspection, nondistended, normoactive bowel sounds present, Soft to palpation, non-tender, No hepatosplenomegaly present and no masses PALPATION: Yes Soft to palpation and Yes No hepatosplenomegaly present Neuro: COMMON NORMALS: patient oriented x3 SENSORIUM/ORIENTATION: Yes alert MENINGEAL SIGNS: Yes no meningeal signs Course Vital Signs: Vital signs: Vital Signs Temperature 98.2 F 10/03/22 11:32 Pulse Rate 55 L 10/03/22 14:00 Respiratory Rate 23 H 10/03/22 14:00 Blood Pressure 165/94 10/03/22 14:00 Pulse Oximetry 96 10/03/22 14:00 Oxygen Delivery Me thod Room Air 10/03/22 12:36 MDM - Chest Pain Medical Decision Making Presents to the ER with shortness of breath x2 weeks and chest pain x1 day. Patient does have a history of a stent. Patient's pain is epigastric more in nature. Physical exam was performed serial EKG and lab work and imaging was obtained. This is all essentially benign. Is felt that the patient's pain is noncardiac in nature patient will be discharged home. Patient is to follow-up with family practitioner within 1 week for further evaluation and treatment. Differential Diagnosis Unlikely acute massive pulmonary embolism, acute respiratory failure, acute myocardial infarction, cardiac arrest or sudden cardiac Medical Records I reviewed the patient's medical records. Lab Data I reviewed the patient's lab results. 10/03/22 11:42 10/03/22 11:42 Radiology Impressions Chest X-Ray 10/03/22 11:31 IMPRESSION: Negative chest Laboratory Results WBC 6.4 10^3/uL (4.0-10.0) 10/03/22 11:42 RBC 5.99 10^6/uL (4.1-5.3) H 10/03/22 11:42 Hgb 16.4 g/dL (11.5-15.3) H 10/03/22 11:42 Hct 51.0 % (37.0-47.0) H 10/03/22 11:42 MCV 85.1 fl (81-99) 10/03/22 11:42 MCH 27.4 pg (28.0-34.0) L 10/03/22 11:42 MCHC 32.2 g/dL (30.0-36.0) 10/03/22 11:42 RDW 13.2 % (12.1-15.1) 10/03/22 11:42 Plt Count 162 10^3/cmm (130-400) 10/03/22 11:42 MPV 11.9 fL (7.4-10.4) H 10/03/22 11:42 Neut % (Auto) 71.7 % 10/03/22 11:42 Lymph % (Auto) 20.3 % 10/03/22 11:42 Treasure % (Auto) 6.1 % 10/03/22 11:42 Eos % (Auto) 0.8 % 10/03/22 11:42 Baso % (Auto) 0.8 % 10/03/22 11:42 Neut # (Auto) 4.60 10^3/uL (1.8-7.7) 10/03/22 11:42 Lymph # (Auto) 1.3 10^3/uL (0.8-4.8) 10/03/22 11:42 Treasure # (Auto) 0.4 10^3/uL (0.2-0.9) 10/03/22 11:42 Eos # (Auto) 0.1 10^3/uL (0.0-0.8) 10/03/22 11:42 Baso # (Auto) 0.1 10^3/uL (0.0-0.1) 10/03/22 11:42 Nucleated RBC % (auto) 0 % 10/03/22 11:42 Nucleated RBCs # 0.0 /100WBC 10/03/22 11:42 PT 12.70 SECONDS (12.1-14.9) 10/03/22 11:42 INR 0.93 (0.8-1.2) 10/03/22 11:42 Sodium 138 mmol/L (136-145) 10/03/22 11:42 Potassium 4.1 mmol/L (3.5-5.1) 10/03/22 11:42 Chloride 101 mmol/L (98-107) 10/03/22 11:42 Carbon Dioxide 28 mmol/L (22-29) 10/03/22 11:42 Anion Gap 13.1 (5-19) 10/03/22 11:42 BUN 18 mg/dL (8-23) 10/03/22 11:42 Creatinine 1.0 mg/dL (0.5-0.9) H 10/03/22 11:42 GFR Calculation 54.8 mL/min (90-130) L 10/03/22 11:42 Glucose 130 mg/dL (65-115) H 10/03/22 11:42 Calculated Osmolality 290 mOsm/kg (285-295) 10/03/22 11:42 Calcium 9.6 mg/dL (8.5-10.5) 10/03/22 11:42 Magnesium 2.2 mg/dL (1.7-2.3) 10/03/22 11:42 Total Bilirubin 0.6 mg/dL (0.15-1.2) 10/03/22 11:42 AST 18 U/L (0-32) 10/03/22 11:42 ALT 13 U/L (0-33) 10/03/22 11:42 Alkaline Phosphatase 79 U/L (35-105) 10/03/22 11:42 Troponin T Baseline 10 ng/L (0-10) 10/03/22 11:42 Troponin T 120 Minute 9.02 ng/L (0-10) 10/03/22 13:33 Delta Troponin T -0.98 ABS# (0-10) L 10/03/22 13:33 NT-Pro-B Natriuret Pep 188 pg/mL (0-125) H 10/03/22 11:42 Total Protein 7.7 g/dL (6.6-8.7) 10/03/22 11:42 Albumin 4.5 g/dL (3.5-5.2) 10/03/22 11:42 Globulin 3.2 g/dL (1.3-4.6) 10/03/22 11:42 Urine Color Yellow (Yellow) 10/03/22 12:04 Urine Appearance Clear (CLEAR) 10/03/22 12:04 Urine pH 5 (5-7) 10/03/22 12:04 Ur Specific [place] 1.010 (1.005-1.030) 10/03/22 12:04 Urine Protein Neg (Negative) 10/03/22 12:04 Urine Glucose (UA) Norm (Normal) 10/03/22 12:04 Urine Ketones Negative (Negative) 10/03/22 12:04 Urine Blood 3+ (Negative) H 10/03/22 12:04 Urine Nitrate Negative (Negative) 10/03/22 12:04 Urine Bilirubin Neg (Negative) 10/03/22 12:04 Urine Urobilinogen Norm mg/dL (Negative) 10/03/22 12:04 Ur Leukocyte Esterase Negative (Negative) 10/03/22 12:04 Urine RBC 0-4 /hpf (0-2) H 10/03/22 12:04 Urine WBC 0-4 /hpf (0-5) H 10/03/22 12:04 Ur Squamous Epith Cells 15-25 /hpf (0-5) H 10/03/22 12:04 Amorphous Sediment Not Reportable 10/03/22 12:04 Urine Bacteria 1+ /hpf (NONE) H 10/03/22 12:04 EKG Data EKG 1: I personally reviewed and interpreted this EKG as follows: EKG interpretation date: 10/03/22 EKG interpretation time: 11:34 Interpretation: EKG shows normal sinus rhythm at 66 bpm, MO interval 170, QRS duration 99, QTc of 305, left axis deviation, incomplete right bundle branch block, left ventricular hypertrophy, possible septal myocardial infarct probably old with Q waves in V1 and V2 EKG 2: I personally reviewed and interpreted this EKG as follows: EKG interpretation date: 10/03/22 EKG interpretation time: 13:34 Prior EKG tracings: available for review Interpretation: EKG showed sinus bradycardia with a ventricular rate of 51 bpm, MO interval 174, QRS duration 104, QTc of 439, left axis deviation, incomplete right bundle branch block, left ventricular hypertrophy, possible septal myocardial infarction probably old due to Q waves in V1 V2 Discharge Plan Discharge Patient Disposition: Home Clinical Impression: Atypical chest pain Condition: Stable Prescriptions: No Action cholecalciferol (vitamin D3) [Vitamin D3] 125 mcg (5,000 unit) tablet 125 mcg PO DAILY Rx Instructions: 3 tabs daily Claritin 10 mg tablet 10 mg PO DAILY PRN (Reason: Allergy Symptoms) metoprolol tartrate 25 mg tablet See Rx Instructions .ROUTE .COMPLEX Qty: 90 1RF Dose Instruction: TAKE 1/2 (ONE-HALF) TABLET BY MOUTH EVERY 12 HOURS Rx Instructions: TAKE 1/2 (ONE-HALF) TABLET BY MOUTH EVERY 12 HOURS lisinopril 2.5 mg tablet 2.5 mg PO BEDTIME Qty: 90 0RF cyanocobalamin (vitamin B-12) [Vitamin B-12] 2,000 mcg Tablet Extended Release 2,000 mcg PO DAILY magnesium oxide 400 mg magnesium Tablet 400 mg PO DAILY rosuvastatin 20 mg tablet 20 mg PO BEDTIME Qty: 30 0RF jphjljk-omck-iscdx-oreg-capryl 100 mg-150 mg- 50 mg-150 mg Capsule 1 cap PO DAILY aspirin 325 mg Capsule 325 mg PO DAILY Flonase Allergy Relief 50 mcg/actuation spray,suspension 1 spray intranasal BID PRN (Reason: Allergy Symptoms) Rx Instructions: administer into each nostril Discharge Orders: Discharge ED (Routine); Ordered 10/03/22 Ordered By: Evan Harmon Referrals: Charlotte Phan FNP [Primary Care Provider] - 1 week Patient Instructions: Chest Pain (ED) Coding Level of Care Code 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
[2022-10-03 11:58] LABS: Basophils # 0.1 10^3/uL (0.0-0.1); Basophils % 0.8 %; Eosinophils # 0.1 10^3/uL (0.0-0.8); Eosinophils % 0.8 %; Hemoglobin 16.4 g/dL (11.5-15.3); Lymphocytes # 1.3 10^3/uL (0.8-4.8); Lymphocytes % 20.3 %; Mean Corpuscular HGB Conc 32.2 g/dL (30.0-36.0); Mean Corpuscular Hemoglobin 27.4 pg (28.0-34.0); Mean Corpuscular Volume 85.1 fl (81-99); Mean Platelet Volume 11.9 fL (7.4-10.4); Monocytes # 0.4 10^3/uL (0.2-0.9); Monocytes % 6.1 %; Neutrophils % 71.7 %; Nucleated Red Blood Cells % 0 %; Platelet Count 162 10^3/cmm (130-400); Red Blood Count 5.99 10^6/uL (4.1-5.3); Red Cell Distribution Width 13.2 % (12.1-15.1); White Blood Count 6.4 10^3/uL (4.0-10.0)
[2022-10-03 12:09] LABS: INR 0.93 (0.8-1.2)
[2022-10-03 12:17] LABS: Troponin(5th) Baseline 10 ng/L (0-10)
[2022-10-03 12:22] LABS: Add Urine Culture? No; Add Urine Microscopic? YES; Bacteria Urine 1+ /hpf; Bilirubin Urine Neg (Negative); Blood Urine 3+ (Negative); Glucose Urine UA Norm (Normal); Ketones Urine Negative (Negative); Leukocyte Esterase Urine Negative (Negative); Nitrate Urine Negative (Negative); Protein Urine Neg (Negative); RBC Urine 0-4 /hpf (0-2); Squamous Epithelial Cell Urine 15-25 /hpf (0-5); Urine Appearance Clear (CLEAR); Urine Color Yellow (Yellow); Urobilinogen Urine Norm (Negative); WBC Urine 0-4 /hpf (0-5); pH Urine 5 (5-7)
[2022-10-03 12:26] LABS: Alanine Aminotransferase 13 U/L (0-33); Albumin Level 4.5 g/dL (3.5-5.2); Alkaline Phosphatase 79 U/L (35-105); Anion Gap 13.1 (5-19); Aspartate Amino Transferase 18 U/L (0-32); Blood Urea Nitrogen 18 mg/dL (8-23); Calcium 9.6 mg/dL (8.5-10.5); Carbon Dioxide 28 mmol/L (22-29); Chloride 101 mmol/L (98-107); Globulin 3.2 g/dL (1.3-4.6); Glomerular Filtration Rate 54.8 mL/min (90-130); Glucose 130 mg/dL (65-115); Magnesium 2.2 mg/dL (1.7-2.3); NT Pro B Type Natriuretic Pept 188 pg/mL (0-125); Osmolality Calculated 290 mOsm/kg (285-295); Potassium 4.1 mmol/L (3.5-5.1); Sodium 138 mmol/L (136-145); Total Bilirubin 0.6 mg/dL (0.15-1.2); Total Protein 7.7 g/dL (6.6-8.7)
--- NOTE | 2022-10-03 13:32 | ECG_ITS ---
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 Measurements Intervals [place] Rate: 51 P: 54 [place]: 174 QRS: -32 QRSD: 104 T: 251 QT: 462 QTc: 428 Interpretive Statements SINUS BRADYCARDIA LEFT AXIS DEVIATION [QRS AXIS < -30] INCOMPLETE RIGHT BUNDLE BRANCH BLOCK [90+ ms QRS DURATION, TERMINAL R IN V1/V2, 40+ ms S IN I/aVL/V4/V5/V6] LEFT VENTRICULAR HYPERTROPHY AND ST-T CHANGE [VOLTAGE CRITERIA PLUS ST/T ABNORMALITY] POSSIBLE SEPTAL MYOCARDIAL INFARCTION , PROBABLY OLD [30 ms Q WAVE IN V1/V2] Compared to ECG 10/03/2022 11:34:31 Sinus rhythm no longer present ST (T wave) deviation still present Myocardial infarct finding still present Electronically Signed On 10-03-2022 19:26:32 CDT by Alex Montana M.D. [id number]
[2022-10-03 13:59] LABS: Troponin 5 2HR 9.02 ng/L (0-10)
[2022-10-03 14:02] LABS: Troponin 5 2HR Delta -0.98 ABS# (0-10)
== END 2022-10-03 14:30 | disposition home or self-care (01) ==
PROVIDERS: Emergency Provider Emergency Medicine; PCP Nurse Practitioner Family
DX: R07.89 Other chest pain (principal); Z79.82 Long term (current) use of aspirin; F17.210 Nicotine dependence, cigarettes, uncomplicated; I25.10 Atherosclerotic heart disease of native coronary artery without angina pectoris; E78.5 Hyperlipidemia, unspecified; I10 Essential (primary) hypertension; I25.2 Old myocardial infarction
CPT/HCPCS: 71045; 80053; 81001; 83735; 83880; 84484; 85025; 85610; 93005; 99285

== ENCOUNTER 2022-11-09 11:32 | Outpatient (CLI) | payer MEDICARE, SELFPAY ==
--- NOTE | 2022-11-09 11:42 | USCV_ITS ---
Mecca Chavez Age: 71 Gender: F : 1950 Exam Date: 11/09/2022 12:12 Ordering Phys: Charlotte PhanP DIRECTOR MATERNAL CHILD Technologist: JHONATHAN [place]am Location: [facility] [place] Indication: DYSPNEA BP: 127 / 96 HR: 60 Rhythm: Sinus Technical Quality: Adequate MEASUREMENTS (Male / Female) Normal Values 2D ECHO LV Diastolic Diameter PLAX 4.5 cm 4.2 - 5.9 / 3.9 - 5.3 cm LV Systolic Diameter PLAX 2.7 cm LV Chamber Size 3.0 cm IVS Diastolic Thickness 0.7 cm 0.6 - 1.0 / 0.6 - 0.9 cm IVS Systolic Thickness 1.1 cm LVPW Diastolic Thickness 1.0 cm 0.6 - 1.0 / 0.6 - 0.9 cm LVPW Systolic Thickness 1.3 cm RV Chamber Size 3.3 cm LVOT Diameter 2.0 cm LV Ejection Fraction 2D Teich 71.6 % LV Ejection Fraction MOD 2C 45.7 % LV Ejection Fraction 2C AL 48.3 % LA Diameter 2.0 cm Aorta at Sinotubular Diameter 3.3 cm IVC Diameter 1.4 cm M-MODE Aortic Annulus Diameter 3.6 cm LA Ao Ratio MM 0.8 MV E Point Septal Separation 0.8 cm DOPPLER AV Peak Velocity 131.0 cm/s LVOT Peak Velocity 94.0 cm/s AV Area Cont Eq vti 2.3 cm squared AV Area Cont Eq pk 2.3 cm squared MV Area PHT 3.3 cm squared Mitral E to A Ratio 0.8 MV E' Velocity 29.5 cm/s Mitral E to MV E' Ratio 7.5 Mitral E to LV E' Lateral Ratio 8.6 Mitral E to LV E' Septal Ratio 6.7 TR Peak Velocity 213.6 cm/s TR Peak Gradient 18.7 mmHg TR Mean Velocity 167.5 cm/s TR Mean Gradient 12.6 mmHg TR Velocity Time Integral 64.9 cm TV Peak E Velocity 53.0 cm/s Right Atrial Pressure 3.0 mmHg Pulmonary Artery Systolic Pressu 21.2 mmHg RV Acceleration Time 0.1 s RV Ejection Time 0.3 s RV AcT/ET 0.3 FINDINGS Left Ventricle Normal left ventricular cavity size, wall thickness and normal left ventricular systolic function. Left ventricular ejection fraction is estimated at 55 %. No regional wall motion abnormalities. Grade I diastolic dysfunction (abnormal relaxation filling pattern), normal to mildly elevated filling pressures. Right Ventricle Normal right ventricular size and systolic function. Right ventricular systolic pressure 25 mmHg. Right Atrium Normal right atrial size. Left Atrium Normal left atrial size. Mitral Valve Structurally normal mitral valve. No mitral valve stenosis. Trace to mild mitral valve regurgitation. Aortic Valve Structurally normal trileaflet aortic valve. No aortic valve stenosis. No aortic valve regurgitation. Tricuspid Valve Structurally normal tricuspid valve. Pulmonic Valve Structurally normal pulmonic valve. No pulmonary valve stenosis. Trace pulmonary valve regurgitation. Pericardium No pericardial effusion. Aorta Normal size aortic root and proximal ascending aorta. IVC Normal IVC dimension with >50% respiratory change of the inferior vena cava. CONCLUSIONS 1. Normal left ventricular cavity size, wall thickness and normal left ventricular systolic function. Left ventricular ejection fraction is estimated at 55 %. Grade I diastolic dysfunction (abnormal relaxation filling pattern), normal to mildly elevated filling pressures. 2. Pulmonary artery pressure estimated at 25 mm Hg. 3. When compared to study dated 02/18/2022, left ventricular systolic function seems to have decreased somewhat. Li Cabezas MD (Electronically Signed) Final Date: 13 November 2022 22:19 S
== END 2022-11-09 11:33 | disposition home or self-care (01) ==
PROVIDERS: PCP Nurse Practitioner Family; Visit Provider Nurse Practitioner Family
DX: I50.30 Unspecified diastolic (congestive) heart failure (principal)
CPT/HCPCS: 93306

== ENCOUNTER → 2022-12-01 11:09 | Outpatient (BNVA) | payer MEDICARE, SELFPAY | PROVIDERS: PCP Nurse Practitioner Family; Visit Provider Internal Medicine Cardiovascular Disease | DX: R06.02 Shortness of breath (principal); I48.0 Paroxysmal atrial fibrillation; I10 Essential (primary) hypertension; I25.10 Atherosclerotic heart disease of native coronary artery without angina pectoris; F17.200 Nicotine dependence, unspecified, uncomplicated; Z79.82 Long term (current) use of aspirin | CPT/HCPCS: 99214 ==

== ENCOUNTER 2022-12-14 13:25 | Outpatient (CLI) | payer MEDICARE, SELFPAY ==
--- NOTE | 2022-12-14 13:41 | CT_ITS ---
WS: [id number] LDCT LUNG CANCER SCREENING HISTORY: NICOTINE Dependence, cigarettes TECHNIQUE: Axial imaging performed from the apices to 1 cm below the costophrenic angles. Coronal and sagittal reformats are submitted with axial MIP series. All CT scans at [facility] use at least one of these dose optimization techniques: automated exposure control; mA and/or kV adjustment per patient size (includes targeted exams where dose is matched to clinical indication); or iterativ e reconstruction. DLP: 53.22 mGy.cm DIvol: Mean CTDIvol: 0.90 (mGy) COMPARISON: 02/23/2022 Diagnostic quality: Satisfactory Lungs: Centrilobular emphysema. No pulmonary mass or pneumonia. Benign granuloma RIGHT upper lobe. Cu rvilinear atelectasis or scar RIGHT lung base. No endobronchial lesions. Heart: Mild cardiomegaly. Extensive coronary artery calcifications.. Other findings: Mild dilatation of the ascending aorta to 4.4 cm. Similar to the prior study. Moderat e atherosclerotic plaque throughout the thoracic aorta. Normal size pulmonary artery. Coarse dense ca lcifications soft tissues of the RIGHT chest wall near the breast. No adrenal mass. Increase in thora cic kyphosis. CT/CT lung screening [id number] IMPRESSION: LUNG-RADS: 1S-Negative with Significant Findings FOLLOW UP: 12 Month: Continue annual screening with LDCT OTHER FINDINGS (S MODIFIER): Extensive coronary artery calcifications. Mild aneurysmal dilatation thoracic aorta unchanged since 02/23/2022.
== END 2022-12-14 13:26 | disposition home or self-care (01) ==
PROVIDERS: PCP Nurse Practitioner Family; Visit Provider Nurse Practitioner Family
DX: Z12.2 Encounter for screening for malignant neoplasm of respiratory organs (principal); F17.210 Nicotine dependence, cigarettes, uncomplicated
CPT/HCPCS: 71271

== ENCOUNTER → 2023-08-31 10:24 | Outpatient (BNVA) | payer MEDICARE, SELFPAY | PROVIDERS: PCP Nurse Practitioner Family; Visit Provider Nurse Practitioner Family | DX: I48.19 Other persistent atrial fibrillation (principal); I10 Essential (primary) hypertension; I25.10 Atherosclerotic heart disease of native coronary artery without angina pectoris; F17.200 Nicotine dependence, unspecified, uncomplicated | CPT/HCPCS: 99214 ==

== ENCOUNTER 2023-12-06 15:00 | Outpatient (CLI) | payer MEDICARE, SELFPAY | END 2023-12-06 15:01 | disposition home or self-care (01) | LOC: SLEEP 15:05 | PROVIDERS: PCP Nurse Practitioner Family; Visit Provider Nurse Practitioner Family | DX: I48.19 Other persistent atrial fibrillation (principal); I10 Essential (primary) hypertension | CPT/HCPCS: G0399 ==

== ENCOUNTER 2024-09-05 08:20 | Emergency (ER) | payer MEDICARE, SELFPAY ==
[2024-09-05] VITALS (14 sets, daily range): BP systolic 114–160; BP diastolic 65–81; PULSE 43–49; RESP 12–25; TEMP 36.2; O2SAT 90–96; BMI 22.8
--- NOTE | 2024-09-05 09:11 | XR_ITS ---
WS: [id number] Exam: XR chest 1V portable [id number] Date/Time of Exam: 09/05/2024 9:21 AM Reason For Exam: chest pain Comparison 10/03/2022. Lungs are fully expanded and clear. Normal cardiomediastinal silhouette. Bony structures are intact. XR/XR chest 1V portable [id number] IMPRESSION: 1. No acute cardiopulmonary finding.
--- NOTE | 2024-09-05 09:11 | ECG_ITS ---
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 Measurements Intervals [place] Rate: 47 P: 46 [place]: 184 QRS: -20 QRSD: 102 T: 261 QT: 488 QTc: 433 Interpretive Statements SINUS BRADYCARDIA INCOMPLETE RIGHT BUNDLE BRANCH BLOCK [90+ ms QRS DURATION, TERMINAL R IN V1/V2, 40+ ms S IN I/aVL/V4/V5/V6] T wave changes in the anterolateral and inferior leads, suggestive of ischemia LEFT VENTRICULAR HYPERTROPHY AND ST-T CHANGE [VOLTAGE CRITERIA PLUS ST/T ABNORMALITY] POSSIBLE SEPTAL MYOCARDIAL INFARCTION , PROBABLY OLD [30 ms Q WAVE IN V1/V2] Compared to ECG 10/03/2022 13:34:35 Left-axis deviation no longer present ST (T wave) deviation still present Myocardial infarct finding still present Electronically Signed On 09-05-2024 19:45:05 CDT by Danyelle Beck M.D. [id number]
[2024-09-05 09:21] LABS: Basophils # 0.1 10^3/uL (0.0-0.1); Basophils % 1.2 %; Eosinophils # 0.1 10^3/uL (0.0-0.8); Eosinophils % 1.8 %; Hematocrit 48.5 % (36-47); Lymphocytes # 1.6 10^3/uL (0.8-4.8); Lymphocytes % 30.4 %; Mean Corpuscular HGB Conc 32.4 g/dL (30-55); Mean Corpuscular Hemoglobin 27.8 pg (27-33); Mean Corpuscular Volume 85.8 fl (85-98); Mean Platelet Volume 12.7 fL (7.4-10.4); Monocytes # 0.5 10^3/uL (0.2-0.9); Monocytes % 9.7 %; Neutrophils # 2.92 10^3/uL (1.8-7.7); Neutrophils % 56.7 %; Nucleated Red Blood Cells % 0 %; Platelet Count 164 10^3/cmm (157-399); Red Blood Count 5.65 10^6/uL (3.85-5.65); Red Cell Distribution Width 13.6 % (12.1-15.1); White Blood Count 5.14 10^3/uL (3.29-11.43)
[2024-09-05 09:32] LABS: Troponin(5th) Baseline 10 ng/L (0-10)
[2024-09-05 09:46] LABS: Troponin 5 2HR 19.88 ng/L (0-10); Troponin 5 2HR Delta 9.88 ABS# (0-10)
[2024-09-05 09:54] LABS: Alanine Aminotransferase 13 U/L (0-33); Albumin Level 4.5 g/dL (3.5-5.2); Alkaline Phosphatase 66 U/L (35-105); Anion Gap 17.1 (5-19); Aspartate Amino Transferase 14 U/L (0-32); Blood Urea Nitrogen 22 mg/dL (8-23); Calcium 9.4 mg/dL (8.5-10.5); Carbon Dioxide 24 mmol/L (22-29); Chloride 105 mmol/L (98-107); Creatinine Clr Calc Pharmacy 68.0784; Globulin 2.5 g/dL (1.3-4.6); Glucose 87 mg/dL (65-115); NT Pro B Type Natriuretic Pept 168 pg/mL (0-125); Osmolality Calculated 297 mOsm/kg (285-295); Potassium 4.1 mmol/L (3.5-5.1); Sodium 142 mmol/L (136-145); Total Bilirubin 0.6 mg/dL (0.15-1.2)
--- NOTE | 2024-09-05 10:40 | ED_ITS ---
HPI - Chest Pain 2 General: Chief Complaint: Chest Pain Stated Complaint: Chest pain Time Seen by Provider: 09/05/24 08:27 History of Present Illness: 73-year-old female with a history of stephanie mors and heart rate and blood pressure variability who presents emergency department with elevated blood pressure. Patient reports this morning she woke up and she felt her blood pressure was high. She usually only takes lisinopril 10 mg daily. However, today she could feel her cardiac awareness and feel her blood pressure high. This then gave her secondary anxiety which only made it worse. Her blood pressure was elevated over 200 systolic and over 100 diastolic. EMS was called. They gave her some nitroglycerin and then gave her 10 mg of labetalol. During transport she calmed down and her blood pressure improved. Initially right when she arrived her blood pressure was still slightly elevated 160/81 but then it was rechecked and is down to 119/68. Patient reports she is completely asymptomatic at this time. She does tell me that she has had problems with her heart rate going very high and then very low and her blood pressure intermittently going very high or very low. She does have a history of tremors. I am wondering whether she has any autonomic dysfunction. Patient reports she is never heard of this term. Patient reports nobody has ever been able to figure out why her blood pressure goes way up and way down and same thing with her heart rate. It is noted that EMS had a heart rate of 58 before they gave labetalol and this brought it down. Patient does have a history of coronary artery disease with 1 stent many years ago. She reports after her blood pressure came down she no longer had any symptoms. Related Data Home Medications ?Medication ?Instructions ?Recorded ?Confirmed loratadine 10 mg tablet (Claritin) 10 mg PO DAILY PRN Allergy Symptoms 10/09/21 09/05/24 lisinopril 2.5 mg tablet 5 mg PO BEDTIME 12/01/22 sertraline 25 mg tablet 25 mg PO DAILY 12/01/2208/15 aspirin 81 mg tablet,delayed 81 mg PO DAILY 09/05/24 0 09/05/24 release (Ni Low Dose Aspirin) cholecalciferol (vitamin D3) 125 125 mcg PO DAILY 08/1509/05/24 mcg (5,000 unit) tablet (Vitamin D3) coenzyme Q10 100 mg capsule 100 mg PO DAILY 09/05/24 0 09/05/24 (CoQ-10) Allergies Allergy/AdvReac Type Severity Reaction Status Date / Time No Known Allergies Allergy Verified 08/31/23 10:30 Review of Systems 2 General: Reports: 10 or more systems reviewed and unremarkable except in HPI and below PFSH ED 2 PFSH: Medical History Dyslipidemia COVID-19 (~10/2020) History of Holter monitoring 06/2019 - HR range 35-92 with mean 53 bmp, bradycardia up to ~8 hrs long, supraventricular activity was 411 beats out of 150,745 analyzes QRS complexes History of echocardiogram 06/2019 EF 50%, lateral wall hypokinesis, mild thickening of mitral valve and regurgitation of tricuspid (moderate) and pulmonary (mild) valves, normal pulmonary artery pressures Coronary artery disease ST elevation MS (STEMI) Status post drug-eluting stent to circumflex. Afib paroxysmal Heart valve disease Hypertension Surgical History History of cardiac catheterization 06/2019 - 100% proximal circumflex lesion stented, 20% RCA, no LM or LAD obstruction noted History of coronary artery stent placement 06/2019 - circumflex, angioplasty and drug-eluting stent H/O tubal ligation H/O: hysterectomy Hx of appendectomy Family History Father CAD (coronary artery disease) Dementia Mother Cancer Grandmother Cancer Brother Cancer Sister Cancer Denies family history of Diabetes Clotting disorder Hyperlipidemia Psychiatric illness Chronic kidney disease (CKD) Suicide Anesthesia complication Bleeding disorder Family history of premature coronary artery disease Lung disease Hypertension Stroke Social History Smoking and tobacco/nicotine status: current every day tobacco/nicotine user Alcohol intake: never Substance/Drug Use: never Physical Exam 2 Const: COMMON NORMALS: no limitations, alert and well nourished EXAM LIMITATIONS: no altered mental status HENMT: COMMON NORMALS: normocephalic, atraumatic and external ears normal H EAD & SCALP: normocephalic and atraumatic EXTERNAL EAR: Yes external ears normal MOUTH: no muffled voice Eye: COMMON NORMALS: EOMs intact bilaterally, conjunctivae normal and no scleral icterus CONJUNCTIVA: Yes conjunctivae normal Neck/C-Spine: COMMON NORMALS: no JVD GENERAL: Yes normal visual inspection and Yes trachea midline Resp: COMMON NORMALS: normal respiratory effort, No use of accessory muscles and clear to auscultation bilaterally AUSCULTATION: clear to auscultation bilaterally Cardio: COMMON NORMALS: no JVD and regular rhythm RATE: bradycardic R HYTHM: regular rhythm GI: COMMON NORMALS: Soft to palpation and non-tender PALPATION: Yes Soft to palpation and No Guarding due to palpation present (GI) Extremity: COMMON NORMALS: normal to inspection Neuro: COMMON NORMALS: moves all extremities, no focal motor deficits and no sensory deficits noted SENSORIUM/ORIENTATION: Yes alert SPEECH: speech normal Psych: COMMON NORMALS: mental status grossly normal, Normal thought process present, cooperative, normal affect and speech normal SPEECH: Yes normal speech THOUGHT PROCESS: Normal thought process present Skin: COMMON NORMALS: no rashes or lesions noted, turgor normal and no jaundice GENERAL SKIN EXAM: no rashes or lesions noted and turgor normal Course 2 Vital Signs: Vital signs: Vital Signs Temperature 97.2 F L 09/05/24 08:23 Pulse Rate 46 L 09/05/24 09:30 Respiratory Rate 23 H 09/05/24 09:30 Blood Pressure 119/68 09/05/24 09:30 Pulse Oximetry 94 09/05/24 09:30 Oxygen Delivery Me thod Room Air 09/05/24 08:23 MDM - Chest Pain Medical Decision Making 73-year-old female with symptoms that suggest autonomic dysfunction to me. She has no explanation for why her blood pressure intermittently goes really high. This happens to her every few months. Now that her blood pressure is controlled, she is asymptomatic. She does have bradycardia. She says this is not unusual for her; she was given labetalol when her heart rate was 58. This may also be contributing. An EKG was performed. EKG from 8:24 AM shows sinus bradycardia, rate 47, QRS of 102 ms with a subtle incomplete right bundle branch block pattern, there are significant T wave inversions through the inferior and lateral leads. I was originally concerned about this however looking through her last multiple EKGs from years past, it is unchanged. We went ahead and did a chest x-ray, CBC, CMP, troponin. We wanted to make sure she did not have any renal failure, electrolyte disturbances, acid-base disturbances, glycemic problems, anemia, etc. CBC unremarkable. CMP unremarkable. Patient's initial troponin was 10. It was repeated at approximately 2 hours after the first and was 19.88. Although this is an increase in her troponin, it is unlikely to be related to acute coronary syndrome. I suspect this is related to her significant hypertension. Looking back at her previous troponins, they have been in a similar range. I spoke to the patient and her about her troponins. I explained that her second was elevated. Patient has dealt with cardiac troponin before and understands the sensitive but nonspecific nature. I gave her the option of either staying for further testing and trending her troponin further or discharge. Patient reports she is remained asymptomatic. Her blood pressure on recheck is still normal. Patient reports she is due to follow-up with her stress test technician as an outpatient. Lab Data 09/05/24 07:34 09/05/24 07:34 Radiology Impressions Chest X-Ray 09/05/24 09:11 IMPRESSION: 1. No acute cardiopulmonary finding. Laboratory Results WBC 5.14 10^3/uL (3.29-11.43) 09/05/24 07:34 RBC 5.65 10^6/uL (3.85-5.65) 09/05/24 07:34 Hgb 15.70 g/dL (11.27-16.99) 09/05/24 07:34 Hct 48.5 % (36-47) H 09/05/24 07:34 MCV 85.8 fl (85-98) 09/05/24 07:34 MCH 27.8 pg (27-33) 09/05/24 07:34 MCHC 32.4 g/dL (30-55) 09/05/24 07:34 RDW 13.6 % (12.1-15.1) 09/05/24 07:34 Plt Count 164 10^3/cmm (157-399) 09/05/24 07:34 MPV 12.7 fL (7.4-10.4) H 09/05/24 07:34 Neut % (Auto) 56.7 % 09/05/24 07:34 Lymph % (Auto) 30.4 % 09/05/24 07:34 [place] % (Auto) 9.7 % 09/05/24 07:34 Eos % (Auto) 1.8 % 09/05/24 07:34 Baso % (Auto) 1.2 % 09/05/24 07:34 Neut # (Auto) 2.92 10^3/uL (1.8-7.7) 09/05/24 07:34 Lymph # (Auto) 1.6 10^3/uL (0.8-4.8) 09/05/24 07:34 [place] # (Auto) 0.5 10^3/uL (0.2-0.9) 09/05/24 07:34 Eos # (Auto) 0.1 10^3/uL (0.0-0.8) 09/05/24 07:34 Baso # (Auto) 0.1 10^3/uL (0.0-0.1) 09/05/24 07:34 Nucleated RBC % (auto) 0 % 09/05/24 07:34 Nucleated RBCs # 0.0 /100WBC 09/05/24 07:34 Sodium 142 mmol/L (136-145) 09/05/24 07:34 Potassium 4.1 mmol/L (3.5-5.1) 09/05/24 07:34 Chloride 105 mmol/L (98-107) 09/05/24 07:34 Carbon Dioxide 24 mmol/L (22-29) 09/05/24 07:34 Anion Gap 17.1 (5-19) 09/05/24 07:34 BUN 22 mg/dL (8-23) 09/05/24 07:34 Creatinine 0.8 mg/dL (0.5-0.9) 09/05/24 07:34 GFR Calculation Not Reportable 09/05/24 07:34 Glucose 87 mg/dL (65-115) 09/05/24 07:34 Calculated Osmolality 297 mOsm/kg (285-295) H 09/05/24 07:34 Calcium 9.4 mg/dL (8.5-10.5) 09/05/24 07:34 Total Bilirubin 0.6 mg/dL (0.15-1.2) 09/05/24 07:34 AST 14 U/L (0-32) 09/05/24 07:34 ALT 13 U/L (0-33) 09/05/24 07:34 Alkaline Phosphatase 66 U/L (35-105) 09/05/24 07:34 Troponin T Baseline 10 ng/L (0-10) 09/05/24 07:34 Troponin T 120 Minute 19.88 ng/L (0-10) H 09/05/24 09:22 Delta Troponin T 9.88 ABS# (0-10) 09/05/24 09:22 NT-Pro-B Natriuret Pep 168 pg/mL (0-125) H 09/05/24 07:34 Total Protein 7.0 g/dL (6.6-8.7) 09/05/24 07:34 Albumin 4.5 g/dL (3.5-5.2) 09/05/24 07:34 Globulin 2.5 g/dL (1.3-4.6) 09/05/24 07:34 All radiology interpretation(s) finalized by discharge ED provider radiology interpretation(s): Chest x-ray 1 view. EP interpretation no acute disease. No cardiomegaly, effusions, pneumothorax. There is a radiodensity projecting over her epigastrium of unclear significance. Discharge Plan Discharge Patient Disposition: Home Clinical Impression: Accelerated hypertension, Autonomic instability, Chest pain Condition: Stable Prescriptions: No Action Claritin 10 mg tablet 10 mg PO DAILY PRN (Reason: Allergy Symptoms) lisinopril 2.5 mg tablet 5 mg PO BEDTIME sertraline 25 mg tablet 25 mg PO DAILY aspirin [Ni Low Dose Aspirin] 81 mg Tablet,Delayed Release (Dr/Ec) 81 mg PO DAILY coenzyme Q10 [CoQ-10] 100 mg Capsule 100 mg PO DAILY cholecalciferol (vitamin D3) [Vitamin D3] 125 mcg (5,000 unit) Tablet 125 mcg PO DAILY Discharge Orders: Discharge ED (Routine); Ordered 09/05/24 Ordered By: Nicanor Decker Referrals: Charlotte Phan FNP [Primary Care Provider] - Alex Montana M.D [Physician] - 09/12/24 (F/u CAD w/ stent, HTN) Patient Instructions: High Troponin Levels (ED), Hypertension (ED) Activity Restrictions/Additional Instructions: Please read all discharge instructions and abide by recommendations and return precautions. Make an appointment to follow-up with your primary care doctor as directed for follow-up. Return to ER if getting worse or other emergent symptoms. Autonomic Dysfunction Information Autonomic dysfunction, also known as dysautonomia, refers to a group of conditions where the autonomic nervous system (ANS) does not work properly. The ANS controls involuntary body functions such as heart rate, blood pressure, digestion, and temperature regulation. Symptoms: Patients with autonomic dysfunction may experience a variety of symptoms, including: - Dizziness or fainting when standing up (orthostatic hypotension) - Rapid heart rate (tachycardia) - Digestive issues such as constipation or diarrhea - Urinary problems like incontinence or retention - Excessive or reduced sweating - Fatigue and difficulty concentrating Causes: Autonomic dysfunction can be primary (intrinsic to the nervous system) or secondary (resulting from another condition). Common causes include: - Diabetes (diabetic autonomic neuropathy) - Parkinson's disease - Multiple system atrophy - Autoimmune disorders - Infections or toxins Diagnosis: Diagnosis involves a detailed medical history and physical examination. Tests may include: - Blood pressure and heart rate measurements while lying down and standing - Autonomic reflex screen to assess different autonomic functions - Laboratory tests to identify underlying conditions (e.g., glucose levels, thyroid function) - Specialized tests like sweat testing, urodynamic studies, or gastric emptying studies.[1] https://pubmed.ncbi.nlm.nih.gov/51580554 [2] https://pubmed.ncbi.nlm.nih.gov/67090743 [3] https:/ /pubmed.ncbi.nlm.nih.gov/82960504 Treatment: Treatment focuses on managing symptoms and underlying conditions: - Non-pharmacologic strategies: Increased salt and fluid intake, physical counter-maneuvers, and compression garments to manage orthostatic hypotension.[ 4] https://pubmed.ncbi.nlm.nih.gov/82334798 - Pharmacologic treatments: Medications like fludrocortisone to increase blood volume, midodrine to raise blood pressure, and pyridostigmine for orthostatic hypotension or tachycardia.[4] https://pubmed.ncbi.nlm.nih.gov/09415572 - Disease-modifying therapies: For conditions like transthyretin amyloidosis, gene-modifying therapies may be used.[5] https://pubmed.ncbi.nlm.nih.gov/76308281 Management should be individualized based on the patient's specific symptoms and underlying conditions. Regular follow-up is essential to adjust treatments as needed and monitor for new symptoms. References * Dysautonomia: Diagnosis and Management https://pubmed.ncbi.nlm.nih.gov/23797976 . Mario Hankins. Neurologic Clinics. 2022;41(1):193-213. doi:10.1016/j.ncl.2021.08.002. * Updates on the Diagnosis and Treatment of Peripheral Autonomic Neuropathies https://pubmed.ncbi.nlm.nih.gov/26717839 . Parviz Grubbs, Tasia Pimentel. Current Neurology and Neuroscience Reports. 2021;22(12):823-837. doi:10.1007/q58189-948-89206-9. * Autonomic Disorders https://pubmed.ncbi.nlm.nih.gov/76471353 . Dolores Pimentel. The [place] Journal of Medicine. 2019;132(4):420-436. doi:10.1016/j.amjmed.2018.09.027. * Pharmacotherapy of Autonomic Failure https://pubmed.ncbi.nlm.nih.gov/96173586 . Shimaggieo C, Yann L, Joo I. Pharmacology & Therapeutics. 2012;134(3):279-86. doi:10.1016/j.pharmthera.2011.05.009. * Autonomic Neuropathies https://pubmed.ncbi.nlm.nih.gov/03891353 . Sherry Good, Galina H, Mansi Hankins, Tasia Pimentel. Muscle & Nerve. 2020;63(1):10-21. doi:10.1002/mus.00547. Print Language: Hungarian Coding Level of Care Code ED Glass Calibrator for Alicia Sanabria
--- NOTE | 2024-09-05 11:10 | ECG_ITS ---
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 Measurements Intervals [place] Rate: 43 P: 50 ND: 188 QRS: -18 QRSD: 97 T: 267 QT: 513 QTc: 434 Interpretive Statements SINUS BRADYCARDIA INCOMPLETE RIGHT BUNDLE BRANCH BLOCK [90+ ms QRS DURATION, TERMINAL R IN V1/V2, 40+ ms S IN I/aVL/V4/V5/V6] SEPTAL MYOCARDIAL INFARCTION , PROBABLY OLD [40+ ms Q WAVE IN V1/V2] MARKED T-WAVE ABNORMALITY, CONSIDER ANTEROLATERAL ISCHEMIA [-0.5+ mV T-WAVE IN I/aVL/V3-V6] MODERATE T-WAVE ABNORMALITY, CONSIDER INFERIOR ISCHEMIA [-0.1+ mV T-WAVE IN II/aVF] Compared to ECG 09/05/2024 08:24:21 T-wave abnormality now present. Possible ischemia now present Left ventricular hypertrophy no longer present .ST (T wave) deviation no longer present. Myocardial infarct finding still present Electronically Signed On 09-05-2024 19:54:10 CDT by Danyelle Beck M.D. [id number] [id number]
== END 2024-09-05 11:38 | disposition home or self-care (01) ==
PROVIDERS: Emergency Provider Emergency Medicine; PCP Nurse Practitioner Family
DX: I10 Essential (primary) hypertension (principal); R07.9 Chest pain, unspecified; G90.9 Disorder of the autonomic nervous system, unspecified; Z79.82 Long term (current) use of aspirin; Z72.0 Tobacco use; E78.5 Hyperlipidemia, unspecified; I25.10 Atherosclerotic heart disease of native coronary artery without angina pectoris
CPT/HCPCS: 36415; 71045; 80053; 83880; 84484; 85025; 93005; 99285

== ENCOUNTER 2024-09-26 13:56 | Emergency (ER) | payer MEDICARE, SELFPAY ==
[2024-09-26 13:58] VITALS: BP 134/85; PULSE 62; RESP 18; O2SAT 93
--- NOTE | 2024-09-26 14:07 | XR_ITS ---
WS: [id number] Exam: XR chest 1V portable [id number] Date/Time of Exam: 09/26/2024 2:07 PM Reason For Exam: cp Comparison 09/05/2024. The lungs are clear and fully inflated. Normal cardiomediastinal silhouette. No pleural effusion. Signs of previous coronary artery stenting. Monitoring leads superimpose the chest. Bony structures are intact. XR/XR chest 1V portable [id number] IMPRESSION: 1. No acute cardiopulmonary finding.
--- NOTE | 2024-09-26 14:07 | ECG_ITS ---
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1950 Requested By: Quintin Angel Order Number: [id number] Reading MD: GIO FORDE Measurements Intervals [place] Rate: 58 P: 94 PA: 179 QRS: -19 QRSD: 97 T: 263 QT: 428 QTc: 424 Interpretive Statements SINUS BRADYCARDIA SEPTAL MYOCARDIAL INFARCTION , PROBABLY OLD [40+ ms Q WAVE IN V1/V2] MODERATE T-WAVE ABNORMALITY, CONSIDER ANTEROLATERAL ISCHEMIA [-0.1+ mV T-WAVE IN V3-V6] MODERATE T-WAVE ABNORMALITY, CONSIDER INFERIOR ISCHEMIA [-0.1+ mV T-WAVE IN II/aVF] Compared to ECG 09/05/2024 11:10:48 Incomplete right bundle-branch block no longer present Myocardial infarct finding still present T-wave abnormality still present Possible ischemia still present Electronically Signed On 09-27-2024 23:31:49 CDT by GIO FORDE [email or web address]
--- NOTE | 2024-09-26 14:09 | W.ED.GENADLT ---
HPI - General Adult General: Chief complaint: General Medical Stated complaint: L Arm Pain Time Seen by Provider: 09/26/24 14:02 Source: patient and EMS Mode of arrival: EMS Limitations: no limitations History of Present Illness: 73-year-old female history of coronary disease states she was driving home today an hour ago and started having some left arm pain states pain lasted roughly 5 to 10 minutes is since resolved she is currently pain-free. She denies any shortness of breath denies any nausea denies any worse improving factors. Associated symptoms: Reports chest pain; Deny dyspnea, headache(s), nausea, rash or vomiting Related Data Home Medications ?Medication ?Instructions ?Recorded ?Confirmed loratadine 10 mg tablet (Claritin) 10 mg PO DAILY PRN Allergy Symptoms 10/09/21 09/26/24 aspirin 81 mg tablet,delayed 81 mg PO QPM 09/05/24 09/26/24 release (Ni Low Dose Aspirin) cholecalciferol (vitamin D3) 125 125 mcg PO QPM 09/05/24 09/26/24 mcg (5,000 unit) tablet (Vitamin D3) coenzyme Q10 100 mg capsule 100 mg PO QPM 09/05/24 09/26/24 (CoQ-10) lisinopril 10 mg tablet 10 mg PO QPM 09/26/24 09/26/24 rosuvastatin 20 mg tablet 20 mg PO DAILY 09/26/24 09/26/24 sertraline 50 mg tablet 50 mg PO QPM 09/26/24 09/26/24 Allergies Allergy/AdvReac Type Severity Reaction Status Date / Time No Known Allergies Allergy Verified 08/31/23 10:30 Review of Systems Const: Denies: fever(s), chills, body aches or change in appetite ENMT: Denies: throat pain or dental pain Card: Reports: chest pain Resp: Denies: dyspnea GI: Denies: abdominal pain, nausea, vomiting or diarrhea Musc: Denies: neck pain or back pain Skin/Breast: Denies: rash Neuro: Denies: headache(s) PFSH ED PFSH: Medical History Dyslipidemia COVID-19 (~10/2020) History of Holter monitoring 06/2019 - HR range 35-92 with mean 53 bmp, bradycardia up to ~8 hrs long, supraventricular activity was 411 beats out of 150,745 analyzes QRS complexes History of echocardiogram 06/2019 EF 50%, lateral wall hypokinesis, mild thickening of mitral valve and regurgitation of tricuspid (moderate) and pulmonary (mild) valves, normal pulmonary artery pressures Coronary artery disease ST elevation CT (STEMI) Status post drug-eluting stent to circumflex. Afib paroxysmal Heart valve disease Hypertension Surgical History History of cardiac catheterization 06/2019 - 100% proximal circumflex lesion stented, 20% RCA, no LM or LAD obstruction noted History of coronary artery stent placement 06/2019 - circumflex, angioplasty and drug-eluting stent H/O tubal ligation H/O: hysterectomy Hx of appendectomy Family History Father CAD (coronary artery disease) Dementia Mother Cancer Grandmother Cancer Brother Cancer Sister Cancer Denies family history of Diabetes Clotting disorder Hyperlipidemia Psychiatric illness Chronic kidney disease (CKD) Suicide Anesthesia complication Bleeding disorder Family history of premature coronary artery disease Lung disease Hypertension Stroke Social History Smoking and tobacco/nicotine status: current every day tobacco/nicotine user Alcohol intake: never Substance/Drug Use: never Physical Exam Const: COMMON NORMALS: no acute distress, patient oriented x3 and healthy appearing HENMT: COMMON NORMALS: normocephalic and atraumatic HEAD & SCALP: normocephalic and atraumatic Eye: COMMON NORMALS: Equal, round and reactive pupils present and EOMs intact bilaterally PUPIL: Yes Equal, round and reactive pupils present Neck/C-Spine: COMMON NORMALS: full ROM and supple Chest: COMMONS NORMALS: normal inspection of the chest Resp: COMMON NORMALS: normal respiratory effort, No retractions, No use of accessory muscles and clear to auscultation bilaterally AUSCULTATION: clear to auscultation bilaterally Cardio: COMMON NORMALS: regular rate, regular rhythm and No murmurs present (Cardio) RATE: regular rate RHYTHM: regular rhythm GI: COMMON NORMALS: Normal to inspection, nondistended, normoactive bowel sounds present, Soft to palpation, non-tender and no masses PALPATION: Yes Soft to palpation Extremity: COMMON NORMALS: normal to inspection and full ROM Neuro: COMMON NORMALS: patient oriented x3, moves all extremities and no focal motor deficits Psych: COMMON NORMALS: mental status grossly normal, Normal thought process present and cooperative THOUGHT PROCESS: Normal thought process present Skin: COMMON NORMALS: no rashes or lesions noted and no wounds GENERAL SKIN EXAM: no rashes or lesions noted Course Vital Signs: Vital signs: Vital Signs Pulse Rate 51 L 09/26/24 15:26 Respiratory Rate 18 09/26/24 13:58 Blood Pressure 152/80 09/26/24 15:26 Pulse Oximetry 95 09/26/24 15:26 Oxygen Delivery Me thod Room Air 09/26/24 13:58 MDM - General Adult Medical Decision Making Patient presents for left arm pain was concerned about ACS initial repeat troponins here are negative no signs of ACS she has been well-appearing here pain-free she stable for discharge follow-up with PCP return if worsening. Medical Records I reviewed the patient's medical records. Lab Data I reviewed the patient's lab results. 09/26/24 14:05 09/26/24 14:47 Radiology Impressions Chest X-Ray 09/26/24 14:07 IMPRESSION: 1. No acute cardiopulmonary finding. Laboratory Results WBC 7.01 10^3/uL (3.29-11.43) 09/26/24 14:05 RBC 5.27 10^6/uL (3.85-5.65) 09/26/24 14:05 Hgb 14.90 g/dL (11.27-16.99) 09/26/24 14:05 Hct 44.7 % (36-47) 09/26/24 14:05 MCV 84.8 fl (85-98) L 09/26/24 14:05 MCH 28.3 pg (27-33) 09/26/24 14:05 MCHC 33.3 g/dL (30-55) 09/26/24 14:05 RDW 13.9 % (12.1-15.1) 09/26/24 14:05 Plt Count 166 10^3/cmm (157-399) 09/26/24 14:05 MPV 12.5 fL (7.4-10.4) H 09/26/24 14:05 Neut % (Auto) 58.5 % 09/26/24 14:05 Lymph % (Auto) 29.0 % 09/26/24 14:05 Darke % (Auto) 9.6 % 09/26/24 14:05 Eos % (Auto) 1.7 % 09/26/24 14:05 Baso % (Auto) 0.9 % 09/26/24 14:05 Neut # (Auto) 4.11 10^3/uL (1.8-7.7) 09/26/24 14:05 Lymph # (Auto) 2.0 10^3/uL (0.8-4.8) 09/26/24 14:05 Darke # (Auto) 0.7 10^3/uL (0.2-0.9) 09/26/24 14:05 Eos # (Auto) 0.1 10^3/uL (0.0-0.8) 09/26/24 14:05 Baso # (Auto) 0.1 10^3/uL (0.0-0.1) 09/26/24 14:05 Nucleated RBC % (auto) 0 % 09/26/24 14:05 Nucleated RBCs # 0.0 /100WBC 09/26/24 14:05 Sodium 142 mmol/L (136-145) 09/26/24 14:47 Potassium 4.5 mmol/L (3.5-5.1) 09/26/24 14:47 Chloride 106 mmol/L (98-107) 09/26/24 14:47 Carbon Dioxide 25 mmol/L (22-29) 09/26/24 14:47 Anion Gap 15.5 (5-19) 09/26/24 14:47 BUN 23 mg/dL (8-23) 09/26/24 14:47 Creatinine 0.9 mg/dL (0.5-0.9) 09/26/24 14:47 GFR Calculation Not Reportable 09/26/24 14:47 Glucose 100 mg/dL (65-115) 09/26/24 14:47 Calculated Osmolality 298 mOsm/kg (285-295) H 09/26/24 14:47 Calcium 9.3 mg/dL (8.5-10.5) 09/26/24 14:47 Total Bilirubin 0.3 mg/dL (0.15-1.2) 09/26/24 14:47 AST 17 U/L (0-32) 09/26/24 14:47 ALT 12 U/L (0-33) 09/26/24 14:47 Alkaline Phosphatase 65 U/L (35-105) 09/26/24 14:47 Troponin T Baseline 9 ng/L (0-10) 09/26/24 14:47 Troponin T 120 Minute 8.60 ng/L (0-10) 09/26/24 15:53 Delta Troponin T -0.40 ABS# (0-10) L 09/26/24 15:53 Total Protein 6.5 g/dL (6.6-8.7) L 09/26/24 14:47 Albumin 4.0 g/dL (3.5-5.2) 09/26/24 14:47 Globulin 2.5 g/dL (1.3-4.6) 09/26/24 14:47 Lipase 34 U/L (13-60) 09/26/24 14:47 All radiology interpretation(s) finalized by discharge EKG Data EKG 1: I personally reviewed and interpreted this EKG as follows: EKG interpretation date: 09/26/24 EKG interpretation time: 14:00 Interpretation: sinus kirk hr [address] elevation qrs 97 qtc 426 Computer generated interpretation: Chest X-Ray 09/26/24 14:07 IMPRESSION: 1. No acute cardiopulmonary finding. Discharge Plan Discharge Patient Disposition: Home Clinical Impression: Arm pain, left Condition: Stable Prescriptions: No Action Claritin 10 mg tablet 10 mg PO DAILY PRN (Reason: Allergy Symptoms) lisinopril 10 mg tablet 10 mg PO QPM sertraline 50 mg tablet 50 mg PO QPM rosuvastatin 20 mg tablet 20 mg PO DAILY aspirin [Ni Low Dose Aspirin] 81 mg Tablet,Delayed Release (Dr/Ec) 81 mg PO QPM coenzyme Q10 [CoQ-10] 100 mg Capsule 100 mg PO QPM cholecalciferol (vitamin D3) [Vitamin D3] 125 mcg (5,000 unit) Tablet 125 mcg PO QPM Discharge Orders: Discharge ED (Routine); Ordered 09/26/24 Ordered By: Quintin Angel Referrals: Charlotte Phan, INSURANCE COUNSEL [Primary Care Provider, Unknown] - 4-7 days Discharge Diet: Advance as tolerated Discharge Activity: Resume usual activity Patient Instructions: Chest Pain (ED) Print Language: Urdu Coding Level of Care Code ED Medical Anthropologist for Chg Fwd
[2024-09-26 14:22] LABS: Basophils # 0.1 10^3/uL (0.0-0.1); Basophils % 0.9 %; Eosinophils # 0.1 10^3/uL (0.0-0.8); Eosinophils % 1.7 %; Hematocrit 44.7 % (36-47); Mean Corpuscular HGB Conc 33.3 g/dL (30-55); Mean Corpuscular Hemoglobin 28.3 pg (27-33); Mean Corpuscular Volume 84.8 fl (85-98); Mean Platelet Volume 12.5 fL (7.4-10.4); Monocytes # 0.7 10^3/uL (0.2-0.9); Monocytes % 9.6 %; Neutrophils # 4.11 10^3/uL (1.8-7.7); Neutrophils % 58.5 %; Nucleated Red Blood Cells % 0 %; Platelet Count 166 10^3/cmm (157-399); Red Blood Count 5.27 10^6/uL (3.85-5.65); Red Cell Distribution Width 13.9 % (12.1-15.1); White Blood Count 7.01 10^3/uL (3.29-11.43)
[2024-09-26] MEDS: aspirin 81 mg Chew Tablet 324 MG PO (14:34)
[2024-09-26 15:26] VITALS: BP 152/80; PULSE 51; O2SAT 95
[2024-09-26 15:38] LABS: Troponin(5th) Baseline 9 ng/L (0-10)
[2024-09-26 15:40] LABS: Alanine Aminotransferase 12 U/L (0-33); Alkaline Phosphatase 65 U/L (35-105); Anion Gap 15.5 (5-19); Aspartate Amino Transferase 17 U/L (0-32); Blood Urea Nitrogen 23 mg/dL (8-23); Calcium 9.3 mg/dL (8.5-10.5); Carbon Dioxide 25 mmol/L (22-29); Chloride 106 mmol/L (98-107); Creatinine Clr Calc Pharmacy 60.3521; Globulin 2.5 g/dL (1.3-4.6); Glucose 100 mg/dL (65-115); Lipase 34 U/L (13-60); Osmolality Calculated 298 mOsm/kg (285-295); Potassium 4.5 mmol/L (3.5-5.1); Sodium 142 mmol/L (136-145); Total Bilirubin 0.3 mg/dL (0.15-1.2); Total Protein 6.5 g/dL (6.6-8.7)
[2024-09-26 16:20] VITALS: BP 159/80; PULSE 52; RESP 24; O2SAT 95
--- NOTE | 2024-09-26 16:21 | ECG_ITS ---
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: : 1950 Requested By: Quintin Angel Order Number: [id number] Reading MD: GIO FORDE Measurements Intervals [place] Rate: 47 P: 58 MD: 183 QRS: -7 QRSD: 104 T: 260 QT: 484 QTc: 430 Interpretive Statements SINUS BRADYCARDIA SEPTAL MYOCARDIAL INFARCTION , PROBABLY OLD [40+ ms Q WAVE IN V1/V2] MODERATE T-WAVE ABNORMALITY, CONSIDER ANTEROLATERAL ISCHEMIA [-0.1+ mV T-WAVE IN V3-V6] MODERATE T-WAVE ABNORMALITY, CONSIDER INFERIOR ISCHEMIA [-0.1+ mV T-WAVE IN II/aVF] Compared to ECG 09/26/2024 14:00:12 No significant changes Electronically Signed On 09-27-2024 23:39:30 CDT by GIO FORDE [email or web address]
== END 2024-09-26 16:29 | disposition home or self-care (01) ==
PROVIDERS: Emergency Provider Emergency Medicine; PCP Nurse Practitioner Family
DX: M79.602 Pain in left arm (principal); Z79.82 Long term (current) use of aspirin; Z72.0 Tobacco use; I25.10 Atherosclerotic heart disease of native coronary artery without angina pectoris; E78.5 Hyperlipidemia, unspecified; I10 Essential (primary) hypertension
CPT/HCPCS: 36415; 71045; 80053; 83690; 84484; 85025; 93005; 99285; J9999

== ENCOUNTER → 2024-10-16 12:55 | Outpatient (BNVA) | payer MEDICARE, SELFPAY | PROVIDERS: PCP Nurse Practitioner Family; Visit Provider Internal Medicine Cardiovascular Disease | DX: I25.10 Atherosclerotic heart disease of native coronary artery without angina pectoris (principal); I10 Essential (primary) hypertension; G90.9 Disorder of the autonomic nervous system, unspecified; I38 Endocarditis, valve unspecified; Z79.82 Long term (current) use of aspirin; F17.210 Nicotine dependence, cigarettes, uncomplicated; Z95.5 Presence of coronary angioplasty implant and graft; I25.2 Old myocardial infarction; I48.19 Other persistent atrial fibrillation; R06.02 Shortness of breath | CPT/HCPCS: 99214 ==

== ENCOUNTER 2024-11-09 09:53 | Outpatient (CLI) | payer MEDICARE, SELFPAY ==
--- NOTE | 2024-11-09 08:30 | USCV_ITS ---
Mecca Chavez Age: 73 Gender: F : 1950 Exam Date: 11/09/2024 10:11 Ordering Phys: Michael Lagunas MD ([email or web address]) Technologist: DEVEN Exam Location: [facility] [place]ication: CAD BP: 178 / 102 HR: 53 Rhythm: Sinus Technical Quality: Adequate MEASUREMENTS (Male / Female) Normal Values 2D ECHO LV Diastolic Diameter PLAX 4.6 cm 4.2 - 5.9 / 3.9 - 5.3 cm IVS Diastolic Thickness 1.0 cm 0.6 - 1.0 / 0.6 - 0.9 cm IVS Systolic Thickness 1.9 cm LVPW Diastolic Thickness 0.9 cm 0.6 - 1.0 / 0.6 - 0.9 cm LVPW Systolic Thickness 1.1 cm LVOT Diameter 2.0 cm LV Ejection Fraction 2D Teich 60.9 % LV Ejection Fraction MOD 4C 66.7 % LV Ejection Fraction MOD 2C 48.8 % LV Ejection Fraction 2C AL 49.5 % LA Diameter 2.5 cm RA Systolic Volume 4C AL 56.4 ml RA Systolic Volume 4C MOD 53.7 ml LA Sys Volume AL 36.9 cm cubed LA Sys Volume Index AL 19.7 cm cubed/m squared Aorta at Sinotubular Diameter 2.4 cm IVC Diameter 2.2 cm M-MODE LA Ao Ratio MM 0.9 AV Cusp Separation MM 1.8 cm DOPPLER AV Peak Velocity 125.0 cm/s LVOT Peak Velocity 69.0 cm/s AV Area Cont Eq vti 1.9 cm squared AV Area Cont Eq pk 1.8 cm squared MV Peak Velocity 82.0 cm/s MV Area PHT 3.6 cm squared Mitral E to A Ratio 0.8 TV Peak Velocity 176.0 cm/s TR Peak Velocity 261.0 cm/s TR Peak Gradient 27.2 mmHg TV Peak E Velocity 82.0 cm/s PV Peak Velocity 75.0 cm/s FINDINGS Left Ventricle Normal left ventricular size, systolic function and wall thickness, with no regional wall motion abnormalities. Left ventricular ejection fraction is estimated at 60 %. Grade I/IV diastolic dysfunction (abnormal relaxation filling pattern), normal to mildly elevated filling pressures. Right Ventricle The right ventricle is normal in size and function. Right Atrium The right atrium is normal in size. Left Atrium The left atrium is normal in size. Mitral Valve Structurally normal mitral valve. No mitral valve stenosis. Moderate mitral valve regurgitation. Aortic Valve Mild aortic valve calcification. No aortic valve stenosis. No aortic valve regurgitation. Tricuspid Valve Structurally normal tricuspid valve without significant stenosis or regurgitation. Pulmonary artery systolic pressure is normal. Pulmonic Valve Structurally normal pulmonic valve without significant stenosis. There is no pulmonic regurgitation. Pericardium Normal pericardium without effusion. Aorta Normal ascending aorta dimension. IVC The inferior vena cava appears normal. CONCLUSIONS Normal left ventricular size, systolic function and wall thickness, with no regional wall motion abnormalities. Left ventricular ejection fraction is estimated at 60 %. Grade I/IV diastolic dysfunction (abnormal relaxation filling pattern), normal to mildly elevated filling pressures. Structurally normal mitral valve. No mitral valve stenosis. Moderate mitral valve regurgitation. Mild aortic valve calcification. No aortic valve stenosis. No aortic valve regurgitation. There is no pericardial effusion. Right atrial pressure is around 5 mm of mercury. Michael Lagunas MD (Electronically Signed) Final Date: 27 November 2024 21:51 S
== END 2024-11-09 09:54 | disposition home or self-care (01) ==
LOC: RAD 09:54
PROVIDERS: PCP Nurse Practitioner Family; Visit Provider Internal Medicine Cardiovascular Disease
DX: I48.19 Other persistent atrial fibrillation (principal); R06.02 Shortness of breath; I25.10 Atherosclerotic heart disease of native coronary artery without angina pectoris; R93.1 Abnormal findings on diagnostic imaging of heart and coronary circulation; I34.0 Nonrheumatic mitral (valve) insufficiency; I35.8 Other nonrheumatic aortic valve disorders
CPT/HCPCS: 93306

== ENCOUNTER → 2025-04-17 12:51 | Outpatient (BNVA) | payer MEDICARE, SELFPAY | PROVIDERS: PCP Nurse Practitioner Family; Visit Provider Internal Medicine Cardiovascular Disease | DX: I48.0 Paroxysmal atrial fibrillation (principal); I34.0 Nonrheumatic mitral (valve) insufficiency; I25.10 Atherosclerotic heart disease of native coronary artery without angina pectoris; I10 Essential (primary) hypertension; Z72.0 Tobacco use | CPT/HCPCS: 99214 ==